=== PATIENT | female | born 1955 | race Caucasian/White ===

== ENCOUNTER 2021-08-15 01:49 | Day surgery (SDC) | payer MEDICARE, SELFPAY ==
[2021-08-08 08:33] VITALS: BMI 32.1
[2021-08-15 09:30] VITALS: BP 160/95; PULSE 77; RESP 18; TEMP 35.9; O2SAT 100
[2021-08-15] MEDS: LACTATED RINGERS 1,000 ML 150 ML IV CONT (09:36)
[2021-08-15 09:40] LABS: Glucose Point of Care 115 mg/dl (65-105)
--- NOTE | 2021-08-15 09:53 | WPDANESEPPF ---
Anes - Initial Pre Proc Eval Procedure: Operation Date: 08/15/21 10:30 Proposed Procedures p Esophagogastroduodenoscopy - Joao Ledezma MD Date/Time: 08/15/21 09:53 Surgeon: Joao Ledezma MD Pre Op Diagnosis: gerd Patient Data Age: 66 Gender: F Height: 1.55 m Weight: 79.8 kg Last Vital Signs Temp 35.9 C L 08/15/21 09:30 Pulse 77 08/15/21 09:30 Resp 18 08/15/21 09:30 BP 160/95 H 08/15/21 09:30 Pulse Ox 100 08/15/21 09:30 Allergies Allergy/AdvReac Type Severity Reaction Status Date / Time No Known Allergies Allergy Mild Verified 08/15/21 09:29 Home Medications Medication Instructions Recorded Confirmed Type abatacept [Orencia ClickJect] 125 mg SUBCUT DAILY 08/08/21 08/15/21 History alendronate 70 mg PO DAILY 08/08/21 08/15/21 History amlodipine-benazepril 5 - 40 cap PO DAILY 08/08/21 08/15/21 History baricitinib [Olumiant] 2 mg PO DAILY 08/08/21 08/15/21 History ergocalciferol (vitamin D2) 1,250 unit PO WEEKLY 08/08/21 08/15/21 History folic acid 1 mg PO DAILY 08/08/21 08/15/21 History glimepiride 2 mg PO DAILY 08/08/21 08/15/21 History metformin 500 mg PO BID 08/08/21 08/15/21 History simvastatin 20 mg PO DAILY 08/08/21 08/15/21 History Laboratory Tests 08/15/21 09:34 POC Capillary Glucose 115 mg/dl H mg/dl (65-105) Patient hx anesthesia problems: none Family hx anesthesia problems: none PMFSH Past Medical History Medical History (Updated 08/15/21 @ 09:55 by Meir Sin MD) Chronic GERD Diabetes HTN (hypertension) Hyperlipidemia Hypothyroidism Obesity Osteoarthritis Rheumatoid arthritis Social History Social History Smoking status: Former smoker Tobacco type: cigarettes Substance use: never Substance use type: does not use Living arrangements: with family Spiritual care concerns: No Anes - Eval Final PreProcedure Day of Procedure 08/15/21 09:53 Patient weight: obese Heart: regular rate and rhythm Lungs: clear to auscultation and normal air movement Airway: Mallampati scale class II Neurological: alert and oriented Last oral intake: >/= 8 hours ASA classification: III Emergent: no Anesthetic plan: proceed Anesthesia type and monitoring: general GIVS Informed Consent: The patient's anesthetic plan and its attendant risks and benefits were discussed with the patient/family/POA. Questions were solicited and answers provided to the satisfaction of the patient/family/POA.
--- NOTE | 2021-08-15 10:11 | PM.HPGS ---
History of Present Illness History of Present Illness Consent: Risks, benefits, and alternatives have been discussed and questions answered. Patient agrees to proceed with procedure. Chief complaint: gerd Narrative: Andria White is a 66 year old female With persistent acid reflux. She has had tenderness in the lower substernal area. Occasionally food will get hung up when swallowing. Most the time her heartburn is controlled with [id number] Nexium. Review of Systems Review of Systems: All systems reviewed & are unremarkable except as noted in HPI and below PMFSH Past Medical History Medical History Chronic GERD Diabetes HTN (hypertension) Hyperlipidemia Hypothyroidism Obesity Osteoarthritis Rheumatoid arthritis Social History Social History Smoking status: Former smoker Tobacco type: cigarettes Substance use: never Substance use type: does not use Living arrangements: with family Spiritual care concerns: No Meds Home Medications and Allergies Home Medications Medication Instructions Recorded Confirmed Type abatacept [Orencia ClickJect] 125 mg SUBCUT DAILY 08/08/21 08/15/21 History alendronate 70 mg PO DAILY 08/08/21 08/15/21 History amlodipine-benazepril 5 - 40 cap PO DAILY 08/08/21 08/15/21 History baricitinib [Olumiant] 2 mg PO DAILY 08/08/21 08/15/21 History ergocalciferol (vitamin D2) 1,250 unit PO WEEKLY 08/08/21 08/15/21 History folic acid 1 mg PO DAILY 08/08/21 08/15/21 History glimepiride 2 mg PO DAILY 08/08/21 08/15/21 History metformin 500 mg PO BID 08/08/21 08/15/21 History simvastatin 20 mg PO DAILY 08/08/21 08/15/21 History Allergies Allergy/AdvReac Type Severity Reaction Status Date / Time No Known Allergies Allergy Mild Verified 08/15/21 09:29 Vital Signs Vital Signs - 24 hr 08/15/21 09:30 Temperature 35.9 C L Pulse Rate 77 Respiratory Rate 18 Blood Pressure 160/95 H Pulse Oximetry 100 Exam Const: General: healthy appearing and comfortable Resp: Auscultation: clear to auscultation bilaterally Cardio: Rate: regular rate Rhythm: regular rhythm GI: GI Palp: Yes Soft to palpation, Yes Tenderness to palpation present (GI) ( xiphoid) and Yes No hepatosplenomegaly present Auscultation: normal bowel sounds Assessment and Plan Assessment and plan (1) Chronic GERD: Code(s): K21.9 - Gastro-esophageal reflux disease without esophagitis Status: Acute Assessment and Plan: EGD with possible biopsy or dilatation or cautery.
[2021-08-15 10:32] VITALS: BP 108/51; PULSE 74; RESP 18; O2SAT 100
[2021-08-15 10:42] VITALS: BP 98/74; PULSE 68; RESP 16; O2SAT 99
[2021-08-15 10:52] VITALS: BP 128/83; PULSE 71; RESP 14; O2SAT 99
== END 2021-08-15 11:06 | disposition home or self-care (01) ==
PROVIDERS: PCP Internal Medicine; Visit Provider Internal Medicine Gastroenterology
PROC: 0DJ08ZZ Inspection of Upper Intestinal Tract, Via Natural or Artificial Opening Endoscopic (ICD-10-PCS; CPT 43235; principal; 2021-08-15 10:30)
DX: K21.9 Gastro-esophageal reflux disease without esophagitis (principal); K44.9 Diaphragmatic hernia without obstruction or gangrene; K31.7 Polyp of stomach and duodenum; I10 Essential (primary) hypertension; E11.9 Type 2 diabetes mellitus without complications; E78.5 Hyperlipidemia, unspecified; E03.9 Hypothyroidism, unspecified; M06.9 Rheumatoid arthritis, unspecified; Z79.84 Long term (current) use of oral hypoglycemic drugs; Z87.891 Personal history of nicotine dependence; E66.9 Obesity, unspecified; Z68.33 Body mass index [BMI] 33.0-33.9, adult
CPT/HCPCS: 43235; 82948; J2704; J7120

== ENCOUNTER 2022-04-05 01:27 | Day surgery (SDC) | payer MEDICARE, SELFPAY ==
[2022-03-19 15:54] VITALS: BMI 31.2
--- NOTE | 2022-04-05 07:07 | WPDGICN ---
Assessment and Plan Assessment and plan (1) Iron deficiency anemia: Code(s): D50.9 - Iron deficiency anemia, unspecified Status: Acute Assessment and Plan: Colonoscopy with possible biopsy or polypectomy or cautery or injection of substances. GI Consult Note Consult date/time: 04/05/22 07:07 HPI: Andria White is a 66 year old female when asked to see because of a recent diagnosis of iron deficiency anemia. She had routine blood work done last month which reveals a hemoglobin of 10.5. Repeat was 11. Her serum iron was low at 29, with only 6% saturation. Likewise ferritin levels were low. She has not had gastroesophageal reflux disease. EGD was done within the past year showing mild reflux changes. She continues to take omeprazole daily. Review of Systems Review of Systems: All systems reviewed & are unremarkable except as noted in HPI and below PMFSH Past Medical History Medical History Chronic GERD Diabetes HTN (hypertension) Hyperlipidemia Hypothyroidism Obesity Osteoarthritis Rheumatoid arthritis Social History Social History Smoking status: Never smoker Tobacco type: cigarettes Alcohol intake: never Substance use: never Substance use type: does not use Living arrangements: with family Spiritual care concerns: No Meds Home Medications and Allergies Home Medications Medication Instructions Recorded Confirmed Type Orencia ClickJect 125 mg SUBCUT WEEKLY 08/08/21 03/19/22 History alendronate 70 mg PO WEEKLY 08/08/21 03/19/22 History amlodipine-benazepril 5 - 40 cap PO DAILY 08/08/21 03/19/22 History ergocalciferol (vitamin D2) 1,250 unit PO WEEKLY 08/08/21 03/19/22 History folic acid 1 mg PO DAILY 08/08/21 03/19/22 History glimepiride 2 mg PO BID 08/08/21 03/19/22 History metformin 500 mg PO BID 08/08/21 03/19/22 History simvastatin 20 mg PO DAILY 08/08/21 03/19/22 History pantoprazole 40 mg PO DAILY 30 Days #30 tablet 08/15/21 03/19/22 Rx ferrous sulfate 325 mg PO BID 03/19/22 03/19/22 History Allergies Allergy/AdvReac Type Severity Reaction Status Date / Time No Known Allergies Allergy Mild Verified 04/05/22 10:08 Exam Const: General: alert Orientation/consciousness: patient oriented x3 Resp: Auscultation: clear to auscultation bilaterally Cardio: Rhythm: regular rhythm GI: GI Palp: Yes Soft to palpation and No Tenderness to palpation present (GI) Neuro: General: patient oriented x3
[2022-04-05 10:08] VITALS: BP 156/86; PULSE 77; RESP 16; TEMP 35.8; O2SAT 99; BMI 29.9
[2022-04-05] MEDS: LACTATED RINGERS 1,000 ML 150 ML IV CONT (10:18)
[2022-04-05 10:19] LABS: Glucose Point of Care 127 mg/dl (65-105)
--- NOTE | 2022-04-05 10:23 | WPDANESEPPF ---
Anes - Initial Pre Proc Eval Procedure: Operation Date: 04/05/22 11:00 Proposed Procedures p Colonoscopy - Joao Ledezma MD Date/Time: 04/05/22 10:23 Surgeon: Joao Ledezma MD Pre Op Diagnosis: NATHAN Patient Data Age: 66 Gender: F Height: 1.55 m Weight: 71.9 kg Last Vital Signs Temp 35.8 C L 04/05/22 10:08 Pulse 77 04/05/22 10:08 Resp 16 04/05/22 10:08 BP 156/86 H 04/05/22 10:08 Pulse Ox 99 04/05/22 10:08 Allergies Allergy/AdvReac Type Severity Reaction Status Date / Time No Known Allergies Allergy Mild Verified 04/05/22 10:08 Home Medications Medication Instructions Recorded Confirmed Type Orencia ClickJect 125 mg SUBCUT WEEKLY 08/08/21 03/19/22 History alendronate 70 mg PO WEEKLY 08/08/21 03/19/22 History amlodipine-benazepril 5 - 40 cap PO DAILY 08/08/21 03/19/22 History ergocalciferol (vitamin D2) 1,250 unit PO WEEKLY 08/08/21 03/19/22 History folic acid 1 mg PO DAILY 08/08/21 03/19/22 History glimepiride 2 mg PO BID 08/08/21 03/19/22 History metformin 500 mg PO BID 08/08/21 03/19/22 History simvastatin 20 mg PO DAILY 08/08/21 03/19/22 History pantoprazole 40 mg PO DAILY 30 Days #30 tablet 08/15/21 03/19/22 Rx ferrous sulfate 325 mg PO BID 03/19/22 03/19/22 History Laboratory Tests 04/05/22 10:12 POC Capillary Glucose 127 mg/dl H mg/dl (65-105) Patient hx anesthesia problems: none Family hx anesthesia problems: none Results Review: All pre-operative results and documents have been reviewed as part of the pre-operative evaluation. [facility] Past Medical History Medical History Chronic GERD Diabetes HTN (hypertension) Hyperlipidemia Hypothyroidism Obesity Osteoarthritis Rheumatoid arthritis Social History Social History Smoking status: Never smoker Tobacco type: cigarettes Alcohol intake: never Substance use: never Substance use type: does not use Living arrangements: with family Spiritual care concerns: No Anes - Eval Final PreProcedure Day of Procedure 04/05/22 10:23 Patient weight: obese Heart: regular rate and rhythm Lungs: clear to auscultation Airway: Mallampati scale class II Neurological: alert and oriented Last oral intake: >/= 8 hours ASA classification: III Emergent: no Anesthetic plan: proceed Anesthesia type and monitoring: general GIVS and standard monitoring Results Review: All pre-operative results and documents have been reviewed as part of the pre-operative evaluation. Informed Consent: The patient's anesthetic plan and its attendant risks and benefits were discussed with the patient/family/POA. Questions were solicited and answers provided to the satisfaction of the patient/family/POA.
[2022-04-05 11:12] VITALS: BP 140/82; PULSE 78; RESP 22; O2SAT 97
[2022-04-05 11:22] VITALS: BP 158/86; PULSE 70; RESP 23; O2SAT 98
== END 2022-04-05 11:38 | disposition home or self-care (01) ==
PROVIDERS: PCP Internal Medicine; Visit Provider Internal Medicine Gastroenterology
PROC: 0DJD8ZZ Inspection of Lower Intestinal Tract, Via Natural or Artificial Opening Endoscopic (ICD-10-PCS; CPT 45378; principal; 2022-04-05 11:00)
DX: Z12.11 Encounter for screening for malignant neoplasm of colon (principal); K64.8 Other hemorrhoids; K57.30 Diverticulosis of large intestine without perforation or abscess without bleeding; D50.9 Iron deficiency anemia, unspecified; E11.9 Type 2 diabetes mellitus without complications; I10 Essential (primary) hypertension; E78.5 Hyperlipidemia, unspecified; E03.9 Hypothyroidism, unspecified; M06.9 Rheumatoid arthritis, unspecified; K21.9 Gastro-esophageal reflux disease without esophagitis; M19.90 Unspecified osteoarthritis, unspecified site; Z79.84 Long term (current) use of oral hypoglycemic drugs; E66.9 Obesity, unspecified; Z68.30 Body mass index [BMI] 30.0-30.9, adult
CPT/HCPCS: G0121; 82948; J2704; J7120

== ENCOUNTER 2022-12-24 18:39 | Emergency (ER) | payer MEDICARE, SELFPAY ==
--- NOTE | ~2022-12-24 | XR_ITS ---
EXAM: XR clavicle LT DATE: 12/24/2022 20:07 HISTORY: clavicle pain WITH A NOTICEABLE KNOT . COMPARISON: None available. FINDINGS: Normal mineralization. An oblique proximal left clavicle fracture is now evident, with mil d inferior displacement of the distal fragment, which was previously obscured by summation artifact. Redemonstration of the possible chip fracture at the superior tip of the distal left clavicle. IMPRESSION: Oblique proximal left clavicle fracture with mild inferior displacement. Redemonstration of the possible chip fracture at the tip of the distal left clavicle. Reviewed, dictated and finalized at location K. EMATICS EDUCATION PROFESSOR IMPRESSION: Oblique proximal left clavicle fracture with mild inferior displace ment. Redemonstration of the possible chip fracture at the tip of the distal le ft clavicle.
--- NOTE | ~2022-12-24 | XR_ITS ---
EXAM: XR shoulder LT min 2V DATE: 12/24/2022 19:12 HISTORY: left shoulder injury . COMPARISON: None available. FINDINGS: Normal mineralization. No fracture or dislocation. No lytic or blastic lesion. Mild AC ingrid nt hypertrophy and glenohumeral degenerative change. Cortical lucency through the superior and distal aspect of the left clavicle which may represent small distal clavicular fracture or artifact from an osteophyte. No erosion or periosteal change. Soft tissues within normal limits. IMPRESSION: Small distal left clavicular fracture versus artifact from an adjacent osteophyte, correl ate with pain or point tenderness over the AC joint. Otherwise no acute osseous finding in the left s houlder Reviewed, dictated and finalized at location K. IX INSPECTOR IMPRESSION: Small distal left clavicular fracture versus artifact from an adjac ent osteophyte, correlate with pain or point tenderness over the AC joint. Othe rwise no acute osseous finding in the left shoulder
[2022-12-24 18:54] VITALS: BP 146/81; PULSE 94; RESP 16; TEMP 36.6; O2SAT 98
--- NOTE | 2022-12-24 19:16 | ED.UPPEXIN ---
HPI - Extremity Injury (Upper) General Chief Complaint: Extremity Injury, Upper Stated Complaint: fall, left shoulder injury Time Seen by Provider: 12/24/22 19:16 Source: patient Mode of arrival: ambulatory Limitations: no limitations History of Present Illness HPI narrative: Patient is a 67-year-old female presenting to the emergency department for evaluation following a fall down 1 step. Patient states that she was going down a flight of steps when she missed stepped on the last step in the staircase causing her to lose her balance and hit her shoulder into the left wall. Patient was able to sit down on the steps. No head trauma. Patient denies any upper or lower back pain. Patient reports pain and swelling over the collarbone area and actually denies any left-sided shoulder pain. Denies any bruising or deformity.. She denies any use of chronic anticoagulation. She denies prodromal symptoms prior to this such as lightheadedness, dizziness, chest pain. Patient is right-hand dominant. She denies any focal weakness or numbness. She denies any pain in the bilateral shoulders, elbow, wrist. Related Data Home Medications Medication Instructions Recorded Confirmed abatacept 125 mg/mL subcutaneous 125 mg subcut WEEKLY 08/08/21 03/19/22 auto-injector (BreconRidgencia ClickJect) alendronate 70 mg tablet 70 mg PO WEEKLY 08/08/21 03/19/22 amlodipine 5 mg-benazepril 40 mg 5 - 40 cap PO DAILY 08/08/21 03/19/22 capsule ergocalciferol (vitamin D2) 1,250 1,250 unit PO WEEKLY 08/08/21 03/19/22 mcg (50,000 unit) capsule folic acid 1 mg tablet 1 mg PO DAILY 08/08/21 03/19/22 glimepiride 2 mg tablet 2 mg PO BID 08/08/21 03/19/22 metformin 500 mg tablet 500 mg PO BID 08/08/21 03/19/22 simvastatin 20 mg tablet 20 mg PO DAILY 08/08/21 03/19/22 ferrous sulfate 325 mg (65 mg 325 mg PO BID 03/19/22 03/19/22 iron) tablet Allergies Allergy/AdvReac Type Severity Reaction Status Date / Time No Known Allergies Allergy Mild Verified 12/24/22 19:31 Review of Systems Review of Systems: CONSTITUTIONAL: Denies fever CARDIOVASCULAR: Denies chest pain RESPIRATORY: Denies cough or dyspnea. GASTROINTESTINAL: Denies abdominal pain SKIN: Denies rash MUSCULOSKELETAL: Denies back pain, denies shoulder, elbow or wrist pain bilaterally. She does report pain overlying the left clavicular area with swelling NEUROLOGIC: Denies headache PMFSH Past Medical History Medical History Chronic GERD Diabetes HTN (hypertension) Hyperlipidemia Hypothyroidism Obesity Osteoarthritis Rheumatoid arthritis Social History Social History Smoking status: Never smoker Tobacco type: cigarettes Alcohol intake: never Substance use: never Substance use type: does not use Living arrangements: with family Spiritual care concerns: No Exam Narrative: GENERAL: Awake, alert, conversant HEAD: Normocephalic, atraumatic. EYES: PERRLA and EOMI. ENT: Nares clear, no rhinorrhea or epistaxis. Mucous membranes moist. NECK: Supple. Patient with tenderness overlying the clavicle. There is ecchymosis and edema at the proximal clavicle. CHEST: No respiratory distress, breathing even and non labored HEART: Regular rate, sinus rhythm ABDOMEN:Non distended, non tender EXTREMITIES: Pt with decreased ROM of the LUE secondary to pain. Intact sensation overlying the deltoid. No squaring off of the shoulder. Full flexion and extension at the left elbow and left wrist without pain or limitation. Intact abduction and adduction of the left shoulder although this does elicit pain. Radial pulse 2+ with intact sensation median, ulnar, radial nerve distribution. Cassandra Architect strength 5/5. SKIN: Warm, dry, no rash. NEURO:No focal deficits. Alert and oriented x3 Course Vital Signs Vital signs: Vital Signs Temperature 36.6 C 12/24/22 18:54 Pulse Rate 94 12/24/22 18:5
[2022-12-24] MEDS: oxyCODONE/ACETAMINOPHEN (*CRX) 5-325 MG TABLET 1 TABLET PO (19:31)
== END 2022-12-24 20:56 | disposition home or self-care (01) ==
LOC: ANHED 20:35
PROVIDERS: Emergency Provider Emergency Medicine; PCP Internal Medicine
DX: S42.012A Anterior displaced fracture of sternal end of left clavicle, initial encounter for closed fracture (principal); E11.9 Type 2 diabetes mellitus without complications; I10 Essential (primary) hypertension; E78.5 Hyperlipidemia, unspecified; E03.9 Hypothyroidism, unspecified; M06.9 Rheumatoid arthritis, unspecified; M19.90 Unspecified osteoarthritis, unspecified site; K21.9 Gastro-esophageal reflux disease without esophagitis; E66.9 Obesity, unspecified; Z68.30 Body mass index [BMI] 30.0-30.9, adult; Z79.84 Long term (current) use of oral hypoglycemic drugs; W10.9XXA Fall (on) (from) unspecified stairs and steps, initial encounter
CPT/HCPCS: 73000; 73030; 99284; A4565; A9270

== ENCOUNTER 2023-01-22 10:16 | Outpatient (CLI) | payer MEDICARE, SELFPAY ==
--- NOTE | ~2023-01-22 | XR_ITS ---
2 views of the left clavicle CLINICAL HISTORY: Fracture follow-up COMPARISON: 12/24/2022 FINDINGS: Proximal left clavicular fracture is poorly delineated, likely nearly completely healed. Cardoso spected small chip fracture of the distal clavicle again noted. [id number] AC joint degenerativ e changes present. Soft tissues are unremarkable. IMPRESSION: Poor visualization of proximal left clavicular fracture, likely nearly completely healed. Stable possible small chip fracture of the distal clavicle. Degenerative changes AC joint, as detailed above. Reviewed, dictated and finalized at location M. TECHNOLOGIST IMPRESSION: Poor visualization of proximal left clavicular fracture, likely nearly complete ly healed. Stable possible small chip fracture of the distal clavicle. Degenerative changes AC joint, as detailed above.
== END 2023-01-22 10:17 | disposition home or self-care (01) ==
PROVIDERS: PCP Internal Medicine; Visit Provider Physician Assistant Surgical
DX: S42.009A Fracture of unspecified part of unspecified clavicle, initial encounter for closed fracture (principal); T14.90XA Injury, unspecified, initial encounter
CPT/HCPCS: 73000

== ENCOUNTER 2023-12-31 08:16 | Outpatient (CLI) | payer MEDICARE, SELFPAY ==
--- NOTE | ~2023-12-31 | CT_ITS ---
CT of the Abdomen: Indication: Periumbilical pain Technique: 2.5 mm axial scans were obtained through the abdomen following intravenous administration of 100 cc of Omnipaque 350. Dose reduction technique was used on this scan by utilizing automated ex posure control and iterative reconstruction technique. The dose-length product (DLP) was 519.38 mGy-c m. Findings: Scans through the lung bases demonstrate small hiatal hernia. There is diffuse fatty infiltration of liver. The spleen, pancreas, gallbladder, adrenals and kidneys are within normal limits. No evidence of aortic aneurysm. No lymphadenopathy. Visualized bowel loops are unremarkable. No ascites. Small fat-containing umbilical hernia present. T here is an additional small fat-containing ventral hernia superior to the umbilicus. Mild compression fracture L1 noted. Impression: Small fat-containing umbilical hernia. Small fat-containing ventral hernia superior to the umbilicus. Small hiatal hernia. Diffuse fatty infiltration of liver. Mild L1 compression deformity. Reviewed, dictated and finalized at location . ESIASTICAL WORKER Impression: Small fat-containing umbilical hernia. Small fat-containing ventral hernia superior to the umbilicus. Small hiatal hernia. Diffuse fatty infiltration of liver. Mild L1 compression deformity.
[2023-12-31 08:37] LABS: Estimated Glomerular Filt Rate > 60
== END 2023-12-31 08:17 | disposition home or self-care (01) ==
LOC: ANHIMG 08:19
PROVIDERS: PCP Internal Medicine; Visit Provider Nurse Practitioner
DX: R19.8 Other specified symptoms and signs involving the digestive system and abdomen (principal); K42.9 Umbilical hernia without obstruction or gangrene; K43.9 Ventral hernia without obstruction or gangrene; K76.0 Fatty (change of) liver, not elsewhere classified; S32.010A Wedge compression fracture of first lumbar vertebra, initial encounter for closed fracture; X58.XXXA Exposure to other specified factors, initial encounter
CPT/HCPCS: 74160; Q9967

== ENCOUNTER 2024-01-21 08:32 | Day surgery (SDC) | payer MEDICARE, SELFPAY ==
[2024-01-09 08:37] VITALS: BMI 34.8
[2024-01-12 11:58] VITALS: BMI 34.5
[2024-01-21 09:47] VITALS: BMI 34.6
[2024-01-21 09:51] VITALS: BP 165/94; PULSE 88; RESP 16; TEMP 36.7; O2SAT 99
--- NOTE | 2024-01-21 09:52 | WPDHPUPDATE1 ---
History and Physical Update Update Date/Time: 01/21/24 09:52 History and Physical has been reviewed, including an updated exam of the patient. There are NO changes in the patient's condition. Risks, benefits, and alternatives have been discussed and questions answered. Patient agrees to proceed with procedure.
--- NOTE | 2024-01-21 10:03 | WPDANESEPPF ---
Anes - Initial Pre Proc Eval Procedure: Operation Date: 01/21/24 11:00 Proposed Procedures p Esophagogastroduodenoscopy - Dylan Kerr MD Date/Time: 01/21/24 10:03 Surgeon: Dylan Kerr MD Pre Op Diagnosis: GERD w/o esophagitis, diaphragmatic hernia w/o Patient Data Age: 68 Gender: F Height: 1.55 m Weight: 83.2 kg Last Vital Signs Temp 36.7 C 01/21/24 09:51 Pulse 88 01/21/24 09:51 Resp 16 01/21/24 09:51 BP 165/94 H 01/21/24 09:51 Pulse Ox 99 01/21/24 09:51 O2 Del Method Room Air 01/21/24 09:51 Allergies Allergy/AdvReac Type Severity Reaction Status Date / Time No Known Allergies Allergy Mild Verified 01/21/24 09:41 Home Medications Medication Instructions Recorded Confirmed Type alendronate 70 mg tablet 70 mg PO WEEKLY 08/08/21 01/21/24 History amlodipine 5 mg-benazepril 40 mg 5 - 40 cap PO DAILY 08/08/21 01/21/24 History capsule ergocalciferol (vitamin D2) 1,250 1,250 unit PO WEEKLY 08/08/21 01/21/24 History mcg (50,000 unit) capsule glimepiride 2 mg tablet 2 mg PO BID 08/08/21 01/21/24 History metformin 500 mg tablet 500 mg PO BID 08/08/21 01/21/24 History ferrous sulfate 325 mg (65 mg 325 mg PO BID 03/19/22 01/21/24 History iron) tablet pantoprazole 40 mg tablet,delayed See Rx Instructions .Route 12/23/23 01/21/24 Rx release .COMPLEX #90 tabs upadacitinib 30 mg tablet,extended 15 mg PO DAILY 12/23/23 01/21/24 History release 24 hr (Rinvoq) Patient hx anesthesia problems: none Family hx anesthesia problems: none Results Review: All pre-operative results and documents have been reviewed as part of the pre-operative evaluation. [facility] Past Medical History Medical History Abnormal abdominal exam Chronic GERD Colon cancer screening Diabetes Fatty liver Hiatal hernia History of fracture of clavicle (~12/24/22) Left HTN (hypertension) Hyperlipidemia Hyperplastic polyp of stomach Hypothyroidism Nonerosive esophageal reflux disease Obesity Osteoarthritis Periumbilical pain Rheumatoid arthritis Surgical History Surgical History H/O: hysterectomy History of hip replacement left hip 08/2024 History of left knee replacement Family History Family History Mother Diabetes mellitus Cerebrovascular accident Daughter Brain cancer Grandparent Breast cancer Social History Social History Smoking status: Never smoker Alcohol intake: never Substance use: never Substance use type: does not use Lack of Transportation: No Lack of Food: Never True Current Housing: I Have Housing Concerned About Future Housing: No Difficulty Paying Gas/Electric Bills: No Difficulty Paying for Meds: No Currently Unemployed: No Education: High School Diploma/GED Difficulty w/ Childcare or Family Care: No Living arrangements: with family Occupation/Education: retired Spiritual care concerns: No Anes - Eval Final PreProcedure Day of Procedure 01/21/24 10:03 Patient weight: obese Heart: regular rate and rhythm Lungs: clear to auscultation Airway: Mallampati scale class II Neurological: alert and oriented Last oral intake: >/= 8 hours ASA classification: III Emergent: no Anesthetic plan: proceed Anesthesia type and monitoring: general GIVS and standard monitoring Results Review: All pre-operative results and documents have been reviewed as part of the pre-operative evaluation. Informed Consent: The patient's anesthetic plan and its attendant risks and benefits were discussed with the patient/family/POA. Questions were solicited and answers provided to the satisfaction of the patient/family/POA.
[2024-01-21] MEDS: LACTATED RINGERS 1,000 ML 150 ML IV CONT (10:06)
[2024-01-21 10:09] LABS: Glucose Point of Care 99 mg/dl (65-105)
[2024-01-21 10:53] VITALS: BP 152/83; PULSE 83; RESP 16; O2SAT 99
--- NOTE | 2024-01-21 10:55 | WPDANESPN ---
Anes - Prog Note Post-Op Date/Time: 01/21/24 10:55 Cardiovascular status: normal Respiratory status: normal Airway patency: baseline Mental status: baseline Post-Op hydration status: normal Vital Signs: Last Vital Signs Temp 36.7 C 01/21/24 09:51 Pulse 88 01/21/24 09:51 Resp 16 01/21/24 09:51 BP 165/94 H 01/21/24 09:51 Pulse Ox 99 01/21/24 09:51 O2 Del Method Room Air 01/21/24 09:51 Pain Score (VAS): 0 I/O: Intake & Output 01/20/24 01/21/24 01/21/24 23:59 07:59 15:59 Intake Total 300 Balance 300 01/21/24 10:02 POC Capillary Glucose 99 Patient Feedback: Patient satisfied with anesthetic care.
[2024-01-21 11:03] VITALS: BP 164/80; PULSE 84; RESP 18; O2SAT 100
[2024-01-21 11:14] VITALS: BP 161/82; PULSE 80; RESP 20; O2SAT 100
== END 2024-01-21 11:22 | disposition home or self-care (01) ==
PROVIDERS: PCP Internal Medicine; Visit Provider Internal Medicine Gastroenterology
PROC: 0DJ08ZZ Inspection of Upper Intestinal Tract, Via Natural or Artificial Opening Endoscopic (ICD-10-PCS; CPT 43235; principal; 2024-01-21 11:00)
DX: K21.9 Gastro-esophageal reflux disease without esophagitis (principal); K44.9 Diaphragmatic hernia without obstruction or gangrene
CPT/HCPCS: 43239

== ENCOUNTER 2024-03-30 11:34 | Outpatient (CLI) | payer MEDICARE, SELFPAY ==
--- NOTE | ~2024-03-30 | NM_ITS ---
EXAMINATION: NM hepatobiliary w pharm DATE: 03/30/2024 13:59 INDICATION: Epigastric pain COMPARISON: None. TECHNIQUE: 5.0 mCi Tc-99m mebrofenin (Choletec) was administered intravenously. Scintigraphic images of the abdomen were obtained for one hour. 1.54 mcg sincalide (Kinevac) was administered by slow int ravenous infusion, and imaging was continued for 30 minutes. Gallbladder ejection fraction was calcul ated by the technologist. FINDINGS: There is normal clearance of radiotracer from the blood pool. There is homogeneous tracer uptake by t he liver. Activity progresses to the gallbladder and bowel. The gallbladder ejection fraction (GBEF) is 68% (normal 10-90%, but most patient with gallbladder dysfunction have GBEF < 35% which does over lap with the normal range). IMPRESSION: 1. Normal hepatobiliary scan Reviewed, dictated and finalized at location A.
== END 2024-03-30 11:35 | disposition home or self-care (01) ==
PROVIDERS: PCP Internal Medicine; Visit Provider Surgery
DX: R10.13 Epigastric pain (principal)
CPT/HCPCS: 78227; A9537; J2805

== ENCOUNTER 2024-04-08 08:54 | Outpatient (CLI) | payer MEDICARE, SELFPAY ==
--- NOTE | ~2024-04-08 | US_ITS ---
Limited Abdominal Sonogram: Real-time sonographic imaging of the right upper quadrant was performed. Clinical History: Epigastric pain Findings: The liver appears echogenic, with no evidence of mass lesion or bile duct dilatation. Main portal vein demonstrates normal direction of flow. The gallbladder is well distended, and appears no rmal with no evidence of gallstone or wall thickening. The common bile duct measures 3 mm. The visua lized pancreas, aorta, and IVC are unremarkable. Impression: Diffuse fatty infiltration of liver. Reviewed, dictated and finalized at location M. Impression: Diffuse fatty infiltration of liver.
== END 2024-04-08 08:55 | disposition home or self-care (01) ==
LOC: ANHIMG 08:56
PROVIDERS: PCP Internal Medicine; Visit Provider Surgery
DX: K76.0 Fatty (change of) liver, not elsewhere classified (principal)
CPT/HCPCS: 76705

== ENCOUNTER 2024-04-21 08:05 | Outpatient (CLI) | payer MEDICARE, SELFPAY ==
--- NOTE | ~2024-04-21 | XR_ITS ---
EXAMINATION: XR UGI w esoph water soluble DATE: 04/21/2024 09:00 INDICATION: Gastroesophageal reflux disease without esophagitis. TECHNIQUE: The patient drank water-soluble contrast. Fluoroscopy of the esophagus, stomach, and proxi mal small bowel was performed. Fluoroscopy exposure time was 0.5 minutes. The total number of images was 265. Total dose-area product was 2.6 Gy-cm^2. COMPARISON: CT abdomen 12/31/2023 FINDINGS: There is no mass or stricture of the esophagus. There is decreased primary and secondary es ophageal peristalsis. No abnormal tertiary waves. There is a moderate-sized sliding hiatal hernia. Th e stomach and proximal small bowel show normal folding patterns. IMPRESSION: 1. Moderate esophageal dysmotility. 2. Moderate-sized sliding hiatal hernia. Reviewed, dictated and finalized at location A.
== END 2024-04-21 08:06 | disposition home or self-care (01) ==
PROVIDERS: PCP Internal Medicine; Visit Provider Surgery
DX: K22.4 Dyskinesia of esophagus (principal); K44.9 Diaphragmatic hernia without obstruction or gangrene; K21.9 Gastro-esophageal reflux disease without esophagitis
CPT/HCPCS: 74240

== ENCOUNTER 2024-06-07 10:17 | Outpatient (CLI) | payer MEDICARE, SELFPAY ==
--- NOTE | ~2024-06-07 | XR_ITS ---
XR chest 2V Ordering provider: Kevin Rojas MD History: 68 years Female with . K21.9 - PRE OP FOR HIATAL HERNIA. HX GERD . Comparison: None. FINDINGS: MEDIASTINUM: The cardiac silhouette is not enlarged. LUNGS: No infiltrates, effusions or pneumothorax. OTHER: No free air under the diaphragm. Degenerative changes of the spine. IMPRESSION: No acute cardiopulmonary pathology. Reviewed, dictated and finalized at location A.
--- NOTE | 2024-06-07 10:30 | ECG_ITS ---
Test Date: 2024-06-07 10:46:20 Measurements Intervals [place] Rate: 94 P: 33 WI: 158 QRS: -26 QRSD: 97 T: 78 QT: 346 QTc: 433 Interpretive Statements SINUS RHYTHM VOLTAGE CRITERIA FOR LVH POOR R WAVE PROGRESSION CONSIDER INFERIOR INFARCT, AGE INDETERMINATE NONSPECIFIC T-WAVE ABNORMALITY- HIGH LATERAL LEADS BASELINE ARTIFACT- I, II, III, AVR, AVL, AVF ABNORMAL ECG No previous ECG available for comparison Electronically Signed On 06-07-2024 10:50:41 CDT by Troy Wise D.O.
[2024-06-07 11:10] LABS: Anion Gap 13 mmol/L (4-12); Blood Urea Nitrogen 11 mg/dL (7-17); Calcium 9.4 mg/dL (8.4-10.2); Carbon Dioxide 23 mmol/L (22-30); Chloride 95 mmol/L (98-107); Estimated Glomerular Filt Rate > 60; Glucose 412 mg/dL (65-110); Potassium 4.5 mmol/L (3.4-5.0); Sodium 131 mmol/L (137-145)
[2024-06-07 11:12] LABS: Basophils Percent Auto 0.2 % (0.2-1.2); Eosinophils Percent Auto 0.2 % (0-4.4); Hematocrit 38.7 % (37.0-47.0); Hemoglobin 11.6 g/dL (12.0-15.0); Immature Granulocyte Absolute 0.03 K/mm3 (0.00-0.031); Immature Granulocyte Percent A 0.7 % (0-0.5); Lymphocytes Absolute Auto 0.88 K/mm3 (0.9-3.2); Lymphocytes Percent Auto 21.2 % (18.3-44.2); Mean Corpuscular Hemoglobin 23.2 pg (26-34); Mean Corpuscular Volume 77.6 fl (80-100); Mean Platelet Volume 10.3 fl (7.4-10.4); Monocytes Absolute Auto 0.1 K/mm3 (0.1-0.6); Monocytes Percent Auto 3.1 % (2.6-8.5); Neutrophils Absolute Auto 3.1 K/mm3 (1.3-6.7); Neutrophils Percent Auto 74.6 % (45.5-73.1); Platelet Count Result 182 k/mm3 (150-375); Red Blood Count 4.99 M/mm3 (4.2-5.4); Red Cell Distribution Width 15.2 % (11.5-14.5); White Blood Count 4.2 K/mm3 (4.5-10.0)
== END 2024-06-07 10:18 | disposition home or self-care (01) ==
LOC: ANHSURGERY 10:20
PROVIDERS: PCP Internal Medicine; Visit Provider Surgery
DX: Z01.818 Encounter for other preprocedural examination (principal); K44.9 Diaphragmatic hernia without obstruction or gangrene; K21.9 Gastro-esophageal reflux disease without esophagitis; R94.31 Abnormal electrocardiogram [ECG] [EKG]
CPT/HCPCS: 36415; 71046; 80048; 85025; 86850; 86900; 86901; 93005

== ENCOUNTER 2024-07-20 07:48 | Outpatient (CLI) | payer MEDICARE, SELFPAY ==
[2024-07-20 08:12] LABS: Basophils Percent Auto 0.6 % (0.2-1.2); Eosinophils Absolute Auto 0.1 K/mm3 (0-0.3); Eosinophils Percent Auto 0.8 % (0-4.4); Hematocrit 41.2 % (37.0-47.0); Hemoglobin 12.1 g/dL (12.0-15.0); Immature Granulocyte Absolute 0.03 K/mm3 (0.00-0.031); Immature Granulocyte Percent A 0.5 % (0-0.5); Lymphocytes Percent Auto 42.1 % (18.3-44.2); Mean Corpuscular HGB Conc 29.4 g/dl (32-36); Mean Corpuscular Hemoglobin 22.4 pg (26-34); Mean Corpuscular Volume 76.4 fl (80-100); Mean Platelet Volume 9.2 fl (7.4-10.4); Monocytes Absolute Auto 0.5 K/mm3 (0.1-0.6); Monocytes Percent Auto 7.1 % (2.6-8.5); Neutrophils Absolute Auto 3.3 K/mm3 (1.3-6.7); Neutrophils Percent Auto 48.9 % (45.5-73.1); Platelet Count Result 186 k/mm3 (150-375); Red Blood Count 5.39 M/mm3 (4.2-5.4); Red Cell Distribution Width 16.2 % (11.5-14.5); White Blood Count 6.7 K/mm3 (4.5-10.0)
[2024-07-20 08:30] LABS: Anion Gap 9 mmol/L (4-12); Blood Urea Nitrogen 11 mg/dL (7-17); Calcium 9.8 mg/dL (8.4-10.2); Carbon Dioxide 29 mmol/L (22-30); Chloride 99 mmol/L (98-107); Estimated Glomerular Filt Rate > 60; Glucose 103 mg/dL (65-110); Potassium 4.3 mmol/L (3.4-5.0); Sodium 137 mmol/L (137-145)
[2024-07-20 08:41] LABS: Hypochromasia 1+; Platelet Estimate Adequate (Adequate); Schistocytes None Seen
== END 2024-07-20 07:49 | disposition home or self-care (01) ==
PROVIDERS: PCP Internal Medicine; Visit Provider Surgery
DX: Z01.818 Encounter for other preprocedural examination (principal); K21.9 Gastro-esophageal reflux disease without esophagitis; K44.9 Diaphragmatic hernia without obstruction or gangrene
CPT/HCPCS: 36415; 80048; 85025; 86850; 86900; 86901

== ENCOUNTER 2024-07-27 07:12 | Outpatient (CLI) | payer MEDICARE, SELFPAY ==
--- NOTE | ~2024-07-27 | NM_ITS ---
EXAMINATION: NM jon stress w perfusion DATE: 07/27/2024 12:13 CDT INDICATION: Abnormal EKG. TECHNIQUE: Rest images were obtained following intravenous administration of 10.9 mCi Tc99m tetrofosm in (Myoview). The patient was infused intravenously with Lexiscan (regadenoson). Then, 34 mCi Tc99m t etrofosmin (Myoview) was administered intravenously, and stress images were obtained. Data was recons tructed into short axis and horizontal and vertical long axis SPECT images. Gated SPECT images were a lso obtained. COMPARISON: None. FINDINGS: There is no definite reversible or fixed perfusion abnormality to suggest ischemia or infar ction. There is no segmental wall motion abnormality. Left ventricular ejection fraction measures 8 9%. IMPRESSION: 1. No definite ischemia or infarct. 2. Normal left ventricular ejection fraction measuring 89%. Reviewed, dictated and finalized at location B.
--- NOTE | 2024-07-27 07:45 | EST_ITS ---
Patient Info Name: Andria White Age: 68 years : 1955 Gender: Female Ht: 61 in Wt: 170 lbs BSA: 1.85 m2 HR: 78 bpm BP: 176 / 97 mmHg Heart Rhythm: Sinus Rhythm Exam Date: 07/27/2024 8:13 AM Exam Location: Echo Lab Patient Status: Outpatient Admit Date: 07/27/2024 Staff Ordering Physician: Kevin Rojas MD Attending Provider: Kevin Rojas MD Exercise Technologist: Nora Reza CT Exercise Physician: Troy Wise DO Exam Type: CA stress jon w NM Study Info Indications Z01.810 - Encounter for preprocedural cardiovascular examination R94.31 - Abnormal electrocardiogram ECG EKG A regadenoson stress test was performed. Summary 1. 1. Negative lexiscan stress test for ischemic ST changes by ECG criteria. 2. 2. Stable hemodynamics throughout the test. 3. 3. Nuclear scan to follow and will be reported separately. Please correlate with it. 4. 4. Patient informed of the above results. Protocol: Lexiscan Stress ECG Details Stage: REST Duration (min): 1 min : 53 sec HR (bpm): 77 SBP (mmHg): 176 DBP (mmHg): 97 Stage: REST Duration (min): 7 min : 41 sec HR (bpm): 78 SBP (mmHg): 176 DBP (mmHg): 97 Stage: STAGE 1 Duration (min): 0 min : 59 sec HR (bpm): 93 SBP (mmHg): 192 DBP (mmHg): 84 Stage: RECOVERY Duration (min): 1 min : 0 sec HR (bpm): 97 SBP (mmHg): 192 DBP (mmHg): 84 Stage: RECOVERY Duration (min): 2 min : 0 sec HR (bpm): 92 SBP (mmHg): 192 DBP (mmHg): 84 Stage: RECOVERY Duration (min): 3 min : 0 sec HR (bpm): 91 SBP (mmHg): 185 DBP (mmHg): 87 Stage: RECOVERY Duration (min): 3 min : 23 sec HR (bpm): 89 SBP (mmHg): 185 DBP (mmHg): 87 Rest HR: 78 bpm Peak HR: 98 bpm Rest Sys BP: 176 mmHg Peak Sys BP: 192 mmHg Max Pred HR: 151 bpm % Max Pred HR: 65 % Target HR: 128 bpm Max RPP: 18,816 bpm*mmHg Termination Reason: Completed protocol Cardiac Symptoms: Shortness of breath Total Time: 1 min : 0 sec Rest Lopez BP: 97 mmHg Peak Lopez BP: 84 mmHg Total Dose: 0.4 mg Resting ECG Sinus rhythm. Stress ECG No ST changes. Arrhythmias None. Report Signatures
== END 2024-07-27 07:13 | disposition home or self-care (01) ==
PROVIDERS: PCP Internal Medicine; Visit Provider Surgery
DX: Z01.810 Encounter for preprocedural cardiovascular examination (principal); R94.31 Abnormal electrocardiogram [ECG] [EKG]
CPT/HCPCS: 78452; 93017; A9502; J2785

== ENCOUNTER 2024-08-20 08:12 | Outpatient (CLI) | payer MEDICARE, SELFPAY ==
[2024-08-20 08:45] LABS: Basophils Percent Auto 0.4 % (0.2-1.2); Eosinophils Percent Auto 0.1 % (0-4.4); Hematocrit 40.8 % (37.0-47.0); Hemoglobin 12.3 g/dL (12.0-15.0); Immature Granulocyte Absolute 0.06 K/mm3 (0.00-0.031); Immature Granulocyte Percent A 0.8 % (0-0.5); Lymphocytes Absolute Auto 1.43 K/mm3 (0.9-3.2); Lymphocytes Percent Auto 19.9 % (18.3-44.2); Mean Corpuscular HGB Conc 30.1 g/dl (32-36); Mean Corpuscular Hemoglobin 23.5 pg (26-34); Mean Platelet Volume 9.9 fl (7.4-10.4); Monocytes Absolute Auto 0.3 K/mm3 (0.1-0.6); Monocytes Percent Auto 4.7 % (2.6-8.5); Neutrophils Absolute Auto 5.3 K/mm3 (1.3-6.7); Neutrophils Percent Auto 74.1 % (45.5-73.1); Platelet Count Result 180 k/mm3 (150-375); Red Blood Count 5.23 M/mm3 (4.2-5.4); Red Cell Distribution Width 16.9 % (11.5-14.5); White Blood Count 7.2 K/mm3 (4.5-10.0)
[2024-08-20 08:59] LABS: Anion Gap 11 mmol/L (4-12); Blood Urea Nitrogen 12 mg/dL (7-17); Calcium 9.6 mg/dL (8.4-10.2); Carbon Dioxide 25 mmol/L (22-30); Chloride 99 mmol/L (98-107); Estimated Glomerular Filt Rate > 60; Glucose 155 mg/dL (65-110); Potassium 4.2 mmol/L (3.4-5.0); Sodium 135 mmol/L (137-145)
== END 2024-08-20 08:13 | disposition home or self-care (01) ==
LOC: ANHSURGERY 08:18
PROVIDERS: PCP Internal Medicine; Visit Provider Surgery
DX: K21.9 Gastro-esophageal reflux disease without esophagitis (principal); K44.9 Diaphragmatic hernia without obstruction or gangrene
CPT/HCPCS: 36415; 80048; 85025; 86850; 86900; 86901

== ENCOUNTER 2024-08-26 13:01 | Inpatient (IN) | payer MEDICARE, SELFPAY ==
[2024-06-04 15:41] VITALS: BMI 32.1
--- NOTE | 2024-06-04 15:43 | PC.NURSE ---
Report to the Outpatient Waiting Room, entrance under the green pavilion located off [facility], at time _1000_ on date _05-17-1804_. Planned Procedure Time: _1200_. Time changes happen often and if your time is changed the preop area will call you the afternoon before. - You and your visitor will be asked to self-screen and do not enter if you have any COVID symptoms. - A mask is optional within the hospital at this time. Patients may have clear liquids (water, carbonated beverages, clear teas, apple juice) until 3 hours prior to surgery with a maximum of 20 ounces. - No food from midnight until time of surgery Take the following medications with a SIP of water the morning of surgery: ____Levothyroxine and prednisone DO NOT STOP ANY OF YOUR OTHER PRESCRIPTION MEDICATIONS PRIOR TO SURGERY ?EXCEPT THE FOLLOWING Medications to discontinue per physician None Date to take last dose Please no make-up, nail thai, hairspray, perfume, deodorant, or body powder the day of surgery. No jewelry (including any body piercings) or valuables the day of surgery, leave them at home. Please take a shower or bath the night before, or the morning of, surgery with an antibacterial soap. Wear comfortable, loose fitting clothing. - Jewelry must be removed prior to entering the operating room. Rings and piercings that are not removed may be cut off. - The hospital will not accept responsibility for valuables. - Please leave all valuables, including medications, at home the day of surgery. If you are going home after surgery, a licensed trencher driver must drive you home. - NO public transportation without another adult if you receive anesthesia. - We recommend that an adult stay with you for 24 hours following discharge. - We also recommend that you do not drive, make important decision, drink alcoholic beverages, or take any drugs that were not prescribed by your health care provider for at least 24 hours after your discharge time. Follow any additional instructions given to you from your surgeon. If you or anyone in your household have experienced Covid symptoms in the past week, please notify your surgeon or the nurse liaison at the phone number below for possible testing. Telephone instructions given to __Debbie__and asked if any additional questions and then verbalized understanding. Patient advised to call surgeon office or pre surgery nurse liaison [phone] if any additional questions.
--- NOTE | 2024-07-16 14:30 | PC.NURSE ---
Report to the Outpatient Waiting Room, entrance under the green pavilion located off [facility], at time __10AM on date _07/22/24 . Planned Procedure Time: _12PM .? Time changes happen often and if your time is changed the preop area will call you the afternoon before. - You and your visitor will be asked to self-screen and do not enter if you have any COVID symptoms. Please call surgeon if you need to reschedule. - A mask is optional within the hospital at this time. Patients may have clear liquids (water, carbonated beverages, clear teas, apple juice) until 3 hours prior to surgery( 9 AM) with a maximum of 20 ounces. - No food from midnight until time of surgery and no smoking - Infants may have breast milk until 4 hours before surgery, infant formula 6 hours prior to surgery. - Children will be allowed to drink immediately following surgery.? If applicable, please bring a bottle or sippy cup to assist with drinking. Juice, water, soda, and popsicles are readily available.? For infants on formula, please bring formula the day of surgery.? Pacifiers are allowed. Take only the following medications with a SIP of water on the morning of surgery: __LEVOTHYROXINE,PREDNISONE DO NOT STOP ANY OF YOUR OTHER PRESCRIPTION MEDICATIONS PRIOR TO SURGERY EXCEPT THE FOLLOWING Medications to discontinue per physician HOLD ALL VITAMINS AND SUPPLEMENTS 3 DAYS PRE OP.LAST DOSE 07/18/24 Please no make-up, nail khmer, hairspray, perfume, deodorant, or body powder the day of surgery.? No jewelry (including any body piercings) or valuables the day of surgery, leave them at home.? Please take a shower or bath the night before, or the morning of, surgery with an antibacterial soap.? Wear comfortable, loose fitting clothing.? Children are encouraged to wear pajamas. - Jewelry must be removed prior to entering the operating room.? Rings and piercings that are not removed may be cut off. - The hospital will not accept responsibility for valuables.? - Please leave all valuables, including medications, at home the day of surgery. If you are going home after surgery, a licensed chassis driver must drive you home.? - NO public transportation without another adult if you receive anesthesia. - We recommend that an adult stay with you for 24 hours following discharge. - We also recommend that you do not drive, make important decision, drink alcoholic beverages, or take any drugs that were not prescribed by your health care provider for at least 24 hours after your discharge time. For Pediatric surgeries, we recommend two adults accompany the child home. Follow any additional instructions given to you from your surgeon. Telephone instructions given to __PATIENT and asked if any additional questions and then verbalized understanding. Patient advised to call surgeon office or pre surgery nurse liaison [phone] if any additional questions.
--- NOTE | 2024-08-19 09:23 | PC.NURSE ---
Report to the Outpatient Waiting Room, entrance under the green pavilion located off [facility], at time __6AM on date _08/25/24 . Planned Procedure Time: _7:30 AM .? Time changes happen often and if your time is changed the preop area will call you the afternoon before. - You and your visitor will be asked to self-screen and do not enter if you have any COVID symptoms. Please call surgeon if you need to reschedule. - A mask is optional within the hospital at this time. Patients may have clear liquids (water, carbonated beverages, clear teas, apple juice) until 3 hours prior to surgery( 4:30 AM) with a maximum of 20 ounces. - No food from midnight until time of surgery and no smoking - Infants may have breast milk until 4 hours before surgery, formula 6 hours prior to surgery. - Children will be allowed to drink immediately following surgery.? If applicable, please bring a bottle or sippy cup to assist with drinking. Juice, water, soda, and popsicles are readily available.? For infants on formula, please bring formula the day of surgery.? Pacifiers are allowed. Take only the following medications with a SIP of water on the morning of surgery: _LEVOTHYROXINE,PREDNISONE DO NOT STOP ANY OF YOUR OTHER PRESCRIPTION MEDICATIONS PRIOR TO SURGERY EXCEPT THE FOLLOWING Medications to discontinue per physician ___HOLD ALL VITAMINS AND SUPPLEMENTS 3 DAYS PRE OP .LAST DOSE 08/21/24 Please no make-up, nail sinhala, hairspray, perfume, deodorant, or body powder the day of surgery.? No jewelry (including any body piercings) or valuables the day of surgery, leave them at home.? Please take a shower or bath the night before, or the morning of, surgery with an antibacterial soap.? Wear comfortable, loose fitting clothing.? Children are encouraged to wear pajamas. - Jewelry must be removed prior to entering the operating room.? Rings and piercings that are not removed may be cut off. - The hospital will not accept responsibility for valuables.? - Please leave all valuables, including medications, at home the day of surgery. If you are going home after surgery, a licensed fork truck driver must drive you home.? - NO public transportation without another adult if you receive anesthesia. - We recommend that an adult stay with you for 24 hours following discharge. - We also recommend that you do not drive, make important decision, drink alcoholic beverages, or take any drugs that were not prescribed by your health care provider for at least 24 hours after your discharge time. For Pediatric surgeries, we recommend two adults accompany the child home. Follow any additional instructions given to you from your surgeon. Telephone instructions given to __PATIENT and asked if any additional questions and then verbalized understanding. Patient advised to call surgeon office or pre surgery nurse liaison [phone] if any additional questions.
--- NOTE | 2024-08-19 09:26 | PC.NURSE ---
PT STATES NO CHANGE IN HEALTH HX SINCE LAST INTERVIEW ON 07/16/24 STRESS TEST DONE 07/27/24 IN EMR
[2024-08-25] VITALS (15 sets, daily range): BP systolic 101–169; BP diastolic 58–79; PULSE 68–103; RESP 16–20; TEMP 36.2–37; O2SAT 91–100
[2024-08-25] MEDS: LACTATED RINGERS 1,000 ML 30 ML IV CONT ×3 (06:30→11:02)
[2024-08-25 06:59] LABS: Glucose Point of Care 130 mg/dl (65-105)
[2024-08-25] MEDS: KETOROLAC 15 MG/ML VIAL (*BKC) IV PUSH (07:06)
[2024-08-25] MEDS: ACETAMINOPHEN 500 MG TABLET 1000 MG PO (07:06)
--- NOTE | 2024-08-25 07:12 | WPDHPUPDATE1 ---
History and Physical Update Update Date/Time: 08/25/24 07:12 History and Physical has been reviewed, including an updated exam of the patient. There are NO changes in the patient's condition. Risks, benefits, and alternatives have been discussed and questions answered. Patient agrees to proceed with procedure.
--- NOTE | 2024-08-25 07:13 | PM.IMHP ---
H&P: HPI History of Present Illness Date/Time: 08/25/24 07:13 Chief Complaint: Heartburn Narrative: Patient is a 69-year-old woman who has a long history of gastroesophageal reflux disease and a medium hiatal hernia by imaging. She takes Protonix with fair relief but often has breakthrough heartburn and she requires Nexium. She has had extensive testing. Esophageal manometry showed adequate esophageal body motility to allow for Alin fundoplication. Gallbladder testing was negative. She is taken to surgery now for laparoscopic Alin fundoplication. Review of Systems Review of Systems: All systems reviewed & are unremarkable except as noted in HPI and below (HPI) [facility] Past Medical History Medical History Abnormal abdominal exam Chronic GERD Colon cancer screening Diabetes Fatty liver Hiatal hernia History of fracture of clavicle (~12/24/22) Left HTN (hypertension) Hyperlipidemia Hyperplastic polyp of stomach Hypothyroidism Nonerosive esophageal reflux disease Obesity Osteoarthritis Periumbilical pain Rheumatoid arthritis Surgical History Surgical History H/O: hysterectomy History of hip replacement left hip 08/2024 History of left knee replacement Family History Family History Mother Diabetes mellitus Cerebrovascular accident Daughter Brain cancer Grandparent Breast cancer Social History Social History Smoking status: Never smoker Alcohol intake: never Substance use: never Substance use type: does not use Lack of Transportation: No Lack of Food: Never True Current Housing: I Have Housing Concerned About Future Housing: No Difficulty Paying Gas/Electric Bills: No Difficulty Paying for Meds: No Currently Unemployed: No Education: High School Diploma/GED Difficulty w/ Childcare or Family Care: No Living arrangements: with family Occupation/Education: retired Spiritual care concerns: No Meds Home Medications and Allergies Home Medications Medication Instructions Recorded Confirmed Type alendronate 70 mg tablet 70 mg PO WEEKLY 08/08/21 08/25/24 History amlodipine 5 mg-benazepril 40 mg 5 - 40 cap PO DAILY 08/08/21 08/25/24 History capsule ergocalciferol (vitamin D2) 1,250 1,250 unit PO WEEKLY 08/08/21 08/25/24 History mcg (50,000 unit) capsule glimepiride 2 mg tablet 2 mg PO BID 08/08/21 08/25/24 History metformin 500 mg tablet 1,000 mg PO BID 08/08/21 08/25/24 History pantoprazole 40 mg tablet,delayed See Rx Instructions .Route 12/23/23 08/25/24 Rx release .COMPLEX #90 tabs levothyroxine 25 mcg capsule 25 mcg PO DAILY 03/18/24 08/25/24 History prednisone 10 mg tablet 10 mg PO DAILY 06/04/24 08/25/24 History simvastatin 40 mg tablet 40 mg PO DAILY 07/16/24 08/25/24 History Allergies Allergy/AdvReac Type Severity Reaction Status Date / Time No Known Allergies Allergy Mild Verified 08/25/24 07:04 Exam Const: General: comfortable, no acute distress, alert and awake Nutritional Appearance: overweight HENMT: Head: normocephalic and atraumatic Mouth: Yes Normal oral and palatal mucosa present Eyes: Conjunctivae: conjunctivae normal Pupils: Equal, round and reactive pupils present EOM: EOMs intact bilaterally Neck: Neck: normal visual inspection, no lymphadenopathy and nontender Resp: Effort & Inspection: normal respiratory effort Auscultation: clear to auscultation bilaterally Cardio: Rate: regular rate Rhythm: regular rhythm Heart sounds: no gallops, no murmurs and no rubs GI: Inspection: non-distended, obesity and visible herniation (Umbilical) GI Palp: Yes Soft to palpation, No Tenderness to palpation present (GI), No Hepatomegaly present, No Splenomegaly present and Yes Hernia present umbilical Auscultation: nor
--- NOTE | 2024-08-25 07:18 | WPDANESEPPF ---
Anes - Initial Pre Proc Eval Procedure: Operation Date: 08/25/24 07:30 Proposed Procedures p Laparoscopic Alin Fundoplication with Hiatal Hernia Repair - Kevin Rojas MD Date/Time: 08/25/24 07:18 Surgeon: Kevin Rojas MD Pre Op Diagnosis: gerd, hiatal hernia Patient Data Age: 69 Gender: F Height: 1.55 m Weight: 77.3 kg Allergies Allergy/AdvReac Type Severity Reaction Status Date / Time No Known Allergies Allergy Mild Verified 08/25/24 07:04 Home Medications Medication Instructions Recorded Confirmed Type alendronate 70 mg tablet 70 mg PO WEEKLY 08/08/21 08/25/24 History amlodipine 5 mg-benazepril 40 mg 5 - 40 cap PO DAILY 08/08/21 08/25/24 History capsule ergocalciferol (vitamin D2) 1,250 1,250 unit PO WEEKLY 08/08/21 08/25/24 History mcg (50,000 unit) capsule glimepiride 2 mg tablet 2 mg PO BID 08/08/21 08/25/24 History metformin 500 mg tablet 1,000 mg PO BID 08/08/21 08/25/24 History pantoprazole 40 mg tablet,delayed See Rx Instructions .Route 12/23/23 08/25/24 Rx release .COMPLEX #90 tabs levothyroxine 25 mcg capsule 25 mcg PO DAILY 03/18/24 08/25/24 History prednisone 10 mg tablet 10 mg PO DAILY 06/04/24 08/25/24 History simvastatin 40 mg tablet 40 mg PO DAILY 07/16/24 08/25/24 History Laboratory Tests 08/25/24 06:56 POC Capillary Glucose 130 H mg/dl (65-105) Patient hx anesthesia problems: none Family hx anesthesia problems: none Results Review: All pre-operative results and documents have been reviewed as part of the pre-operative evaluation. [facility] Past Medical History Medical History Abnormal abdominal exam Chronic GERD Colon cancer screening Diabetes Fatty liver Hiatal hernia History of fracture of clavicle (~12/24/22) Left HTN (hypertension) Hyperlipidemia Hyperplastic polyp of stomach Hypothyroidism Nonerosive esophageal reflux disease Obesity Osteoarthritis Periumbilical pain Rheumatoid arthritis Surgical History Surgical History H/O: hysterectomy History of hip replacement left hip 08/2024 History of left knee replacement Family History Family History Mother Diabetes mellitus Cerebrovascular accident Daughter Brain cancer Grandparent Breast cancer Social History Social History Smoking status: Never smoker Alcohol intake: never Substance use: never Substance use type: does not use Lack of Transportation: No Lack of Food: Never True Current Housing: I Have Housing Concerned About Future Housing: No Difficulty Paying Gas/Electric Bills: No Difficulty Paying for Meds: No Currently Unemployed: No Education: High School Diploma/GED Difficulty w/ Childcare or Family Care: No Living arrangements: with family Occupation/Education: retired Spiritual care concerns: No Anes - Eval Final PreProcedure Day of Procedure 08/25/24 07:18 Patient weight: obese Heart: regular rate and rhythm Lungs: clear to auscultation Airway: Mallampati scale class II Neurological: alert and oriented Last oral intake: >/= 8 hours ASA classification: III Emergent: no Anesthetic plan: proceed Anesthesia type and monitoring: general ETT and standard monitoring Results Review: All pre-operative results and documents have been reviewed as part of the pre-operative evaluation. Informed Consent: The patient's anesthetic plan and its attendant risks and benefits were discussed with the patient/family/POA. Questions were solicited and answers provided to the satisfaction of the patient/family/POA.
[2024-08-25] MEDS: ceFAZolin 2 GM/D5W 50 ML 2 GM/50 ML BAG IVPB (07:29)
[2024-08-25] MEDS: BUPIVACAINE/EPINEPHRINE 0.5% 50 ML VIAL 30 ML INFILTRATE (08:02)
--- NOTE | 2024-08-25 11:03 | W.PM.PROC2 ---
Procedure Note - Detailed Date of Procedure 08/25/24 Pre-op Diagnosis gerd, hiatal hernia Post-op Diagnosis Same Procedure Performed Laparoscopic Alin fundoplication with hiatal hernia repair Surgeon Kevin Rojas MD [facility] Ros[facility] ANSARI Anesthesia General and Local Indications Patient is a 69-year-old woman who has had reflux for many years. It has gotten worse such that even though she takes Protonix, she frequently has breakthrough heartburn and has to take Nexium as well. She had an extensive workup and also had her gallbladder evaluated. Diagnosis was recalcitrant gastroesophageal reflux with hiatal hernia. After discussion, she is taken to surgery now for hiatal hernia repair and laparoscopic Alin fundoplication Findings Moderate hiatal hernia, large diaphragmatic defect, severe fatty liver Description of Procedure Patient was taken to surgery and induced into general anesthesia. The abdomen is prepped and draped. Trocars were placed in the usual fashion using [place] optical trocars and a 5 mm camera. Prior to the initial trocar placement, a varies needle was introduced in the abdomen was insufflated with CO2 gas. After the trocars were placed, another incision was made near the xiphoid process and the Anna self-retaining retractor was position to elevate the lateral segment of the left lobe of the liver. As mentioned above, the liver had a very nodular appearance and was enlarged due to fatty change. The lateral segment was large and required careful positioning to allow good visualization none the hiatus. Patient was placed in reverse Trendelenburg. We then started using the LigaSure and divided the hepatogastric ligament up to the right osiris. I then was able to grasp the hernia sac at the apex of the hiatus and create an opening in the hernia sac and dissect in the mediastinum outside the hernia sac. I continued dividing hernia sac at the level of the hiatus and contain dissect eating in the tissue plane out side of the hernia sac. This was carried out extensively on the right side of the esophagus. We exposed the posterior aspect of the hiatus and the lower portion of the left osiris. I also was easily able to see the esophagus. I mobilized bluntly and with some LigaSure cautery adhesions to the esophagus. The hernia sac was mobilized so that most of it was within the abdominal cavity. We then turned the greater curvature of the stomach up anteriorly in place traction on the greater omentum. He using the LigaSure we then divided the greater omentum from the greater curvature the stomach and entered the lesser sac. This dissection was carried out towards the fundus and cardia of the stomach. There were numerous adhesions to the posterior stomach which also required division. We carefully avoided any traction injuries to the spleen. As we reached the hiatus, we continued mobilizing the upper stomach and freed the stomach from the posterior left osiris. This allowed easy access to the esophagus especially for dissection of posterior and left lateral adhesions. We performed a high dissection in the mediastinum mobilizing the esophagus and using the LigaSure. No bleeding was encountered. After this dissection and mobilization was completed, I then turned the stomach back so that the greater curve was on the patient's left side. We again entered the mediastinum along the esophagus and mobilized the esophagus further on its anterior aspect and its right lateral aspect. I then placed half-inch Sabrina drain around the distal esophagus and secured the ends to 1 another with a Vicryl endoloop. We placed some traction than on the gastroesophageal junction and took down a few more adhesions. We then retracted the gastroesophageal junction to the patient's right and found some more anterior and left lateral adhesions. Finally we had a full mobilization of the esophagus and at least 6 cm of intra-abdominal esophagus. Some
[2024-08-25 11:14] LABS: Glucose Point of Care 335 mg/dl (65-105)
[2024-08-25 11:14] LABS: Glucose Point of Care 298 mg/dl (65-105)
[2024-08-25] MEDS: INSULIN HUMAN REGULAR (*BKC) 100 UNITS/ML 10 UNITS IV PUSH (11:25)
[2024-08-25] MEDS: fentaNYL CITRATE INJ (*CRX) 100 MCG/2 ML VIAL 25 MCG IV PUSH ×4 (11:46→12:35)
[2024-08-25 12:08] LABS: Glucose Point of Care 301 mg/dl (65-105)
[2024-08-25 13:09] LABS: Glucose Point of Care 309 mg/dl (65-105)
--- NOTE | 2024-08-25 13:26 | ADMGEN ---
This patient, Andria White, was admitted to [facility] Surg Room 332-02. Patient/family oriented to hospital policies and general routines including ID bracelet, bed and alarms, visiting hours, pain management, procedures, bathroom and other care routines, personal items, smoking policy, room service/diet, and visiting hours. Information on how to activate the Rapid Response Team has been discussed. Patient/Family are encouraged to report perceived risks to care and to ask questions if they do not understand what they are told or what they should do.
[2024-08-25] MEDS: LACTATED RINGERS 1,000 ML 80 ML IV CONT (13:44)
[2024-08-25] MEDS: INSULIN ASPART (*BKC) 100 UNITS/ML SUB-Q ×2 (13:53→21:10)
--- NOTE | 2024-08-25 14:44 | PM.IMCN ---
Assessment and Plan Assessment and plan (1) Hiatal hernia: Code(s): K44.9 - Diaphragmatic hernia without obstruction or gangrene Status: Chronic Assessment and Plan: - underwent a laparoscopic Alin fundoplication with hiatal hernia repair on 08/25/2024 with Bob BRAXTON - primary management through surgical team - analgesics and antipyretics p.r.n. (2) Diabetes: Qualifiers: Diabetes mellitus complication status: without complication Diabetes mellitus jail insulin use: unspecified roasterman insulin use status Diabetes mellitus type: type 2 Qualified Code(s): E11.9 - Type 2 diabetes mellitus without complications Code(s): E11.9 - Type 2 diabetes mellitus without complications Status: Chronic Assessment and Plan: - hypoglycemia protocol - POC blood glucose ACHS - home medication: glimepiride 2 mg b.i.d., metformin 1000 mg b.i.d. - correct regimen ordered - high dose TIDWM and HS, based off BMI - A1C ordered, none on file (3) GERD (gastroesophageal reflux disease): Qualifiers: Esophagitis presence: esophagitis presence not specified Qualified Code(s): K21.9 - Gastro-esophageal reflux disease without esophagitis Code(s): K21.9 - Gastro-esophageal reflux disease without esophagitis Status: Chronic Assessment and Plan: - continue daily pantoprazole 40 mg p.o. (4) HTN (hypertension): Qualifiers: Hypertension type: primary hypertension Qualified Code(s): I10 - Essential (primary) hypertension Code(s): I10 - Essential (primary) hypertension Status: Chronic Assessment and Plan: - chronic, currently 119/71 - continue home medications: Amlodipine 5 mg daily, benazepril (subbed to lisinopril) 40 mg daily - monitor Plan Diet: Clear liquid GI Prophylaxis: Pantoprazole p.o. DVT Prophylaxis: Lovenox SQ Lines: Peripheral Code Status: Full code HPI Date of Consult Consult date: 08/25/24 Requesting Physician: Kevin Rojas MD Primary Care Provider: Ivan Wilkes, Consult Narrative Reason for consult: Perioperative medical management-diabetes, hypertension, RA Narrative: 69 y/o F presents here for a hiatal hernia repair with PMH of GERD, hiatal hernia, diabetes, rheumatoid arthritis, hypertension, and umbilical hernia. The patient has been following with General Surgery outpatient for acid reflux and a medium-sized hiatal hernia. She is currently on Protonix daily with Nexium for breakthrough heartburn. Esophageal manometry in March of 2024 showed adequate esophageal body motility and GB testing negative. The patient is undergoing a laparoscopic Alin fundoplication on 08/25/2024. Postoperatively she reports pain in her shoulders, upper abdomen, and upper back. Had mild nausea without vomiting which has since resolved. LBM was yesterday morning (08/24). Denies any recent changes to her medical history or medications. Preop VS: 97.1? F, HR 80, RR 16, 169/79, and 100% on RA. Preop workup: No leukocytosis, no anemia, creatinine 0.5 and GFR >60, glucose 155. Review of Systems Review of Systems: All systems reviewed & are unremarkable except as noted in HPI and below PMFSH Past Medical History Medical History Abnormal abdominal exam Chronic GERD Colon cancer screening Diabetes Fatty liver Hiatal hernia History of fracture of clavicle (~12/24/22) Left HTN (hypertension) Hyperlipidemia Hyperplastic polyp of stomach Hypothyroidism Iron deficiency anemia Obesity Osteoarthritis Rheumatoid arthritis Surgical History Surgical History H/O: hysterectomy History of hip replacement left hip 08/2024 History of left knee replacement Family History Family History Mother Diabetes mellitus Cerebrovascu
[2024-08-25] MEDS: MORPHINE SULFATE (*CRX) 4 MG/ML INJ IV PUSH (18:52)
[2024-08-25] MEDS: metFORMIN HCL 500 MG TABLET 1000 MG PO (18:53)
[2024-08-25] MEDS: GLIMEPIRIDE 2 MG TABLET PO (18:54)
[2024-08-25 18:58] LABS: Glucose Point of Care 357 mg/dl (65-105)
[2024-08-25 20:17] LABS: Glucose Point of Care 363 mg/dl (65-105)
[2024-08-25] MEDS: SENNA/DOCUSATE SODIUM TABLET 2 TAB PO (20:35)
[2024-08-25] MEDS: ENOXAPARIN 30 MG/0.3 ML SYRINGE SUB-Q (20:35)
--- NOTE | ~2024-08-26 | CT_ITS ---
CT of the Abdomen and Pelvis: Indication: Abdominal pain, status post fundoplication Technique: 2.5 mm axial scans were obtained through the abdomen and pelvis following intravenous adm inistration of 100 cc of Omnipaque 350. Dose reduction technique was used on this scan by utilizing a utomated exposure control and iterative reconstruction technique. The dose-length product (DLP) was 9 14.21 mGy-cm. COMPARISON: 12/31/2023 Findings: Scans through the lung bases demonstrate small bilateral pleural effusions with partial bi lateral lower lobe atelectasis. There is diffuse hepatic steatosis. The spleen, pancreas, gallbladder, adrenals and kidneys are withi n normal limits. No evidence of aortic aneurysm. No lymphadenopathy. Somewhat masslike appearance of the GE junction region/gastric fundus is presumably related to recent fundoplication surgery. No bowel obstruction evident. Soft tissue gas in the anterior subcutaneous s oft tissues is presumably postoperative in nature. Small ventral fat-containing hernia noted. Images through the pelvis were performed. Urinary bladder unremarkable. No pelvic mass seen. No ascit es. Impression: Somewhat masslike appearance of the GE junction region/gastric fundus is presumably related to recent fundoplication surgery. No wally bowel obstruction evident. Small bilateral pleural effusions with partial bilateral lower lobe atelectasis. Diffuse hepatic steatosis. Extensive soft tissue gas in the subcutaneous soft tissues is presumably postoperative in nature. Reviewed, dictated and finalized at [facility]. Impression: Somewhat masslike appearance of the GE junction region/gastric fundus is presum ably related to recent fundoplication surgery. No wally bowel obstruction evide nt. Small bilateral pleural effusions with partial bilateral lower lobe atelectasis . Diffuse hepatic steatosis. Extensive soft tissue gas in the subcutaneous soft tissues is presumably postop erative in nature.
[2024-08-26 00:16] VITALS: BP 171/79; PULSE 73; RESP 20; TEMP 36.2; O2SAT 94
[2024-08-26] MEDS: LACTATED RINGERS 1,000 ML 80 ML IV CONT (02:24)
[2024-08-26] MEDS: oxyCODONE/ACETAMINOPHEN (*CRX) 10-325 MG TABLET 1 TAB PO ×3 (03:08→16:34)
[2024-08-26] MEDS: LEVOTHYROXINE SODIUM 25 MCG TABLET PO (06:02)
[2024-08-26 06:35] LABS: Hematocrit 35.2 % (37.0-47.0); Hemoglobin 10.9 g/dL (12.0-15.0); Mean Corpuscular Hemoglobin 23.8 pg (26-34); Mean Corpuscular Volume 76.9 fl (80-100); Mean Platelet Volume 10.5 fl (7.4-10.4); Platelet Count Result 147 k/mm3 (150-375); Red Blood Count 4.58 M/mm3 (4.2-5.4); Red Cell Distribution Width 16.9 % (11.5-14.5); White Blood Count 7.9 K/mm3 (4.5-10.0)
[2024-08-26 06:47] LABS: Anion Gap 6 mmol/L (4-12); Blood Urea Nitrogen 10 mg/dL (7-17); Calcium 9.1 mg/dL (8.4-10.2); Carbon Dioxide 28 mmol/L (22-30); Chloride 101 mmol/L (98-107); Estimated CRCL calculation 83 ml/min; Estimated Glomerular Filt Rate > 60; Glucose 132 mg/dL (65-110); Hemoglobin A1C 9.1 % (<5.7); Potassium 3.6 mmol/L (3.4-5.0); Sodium 135 mmol/L (137-145)
[2024-08-26 07:59] LABS: Glucose Point of Care 138 mg/dl (65-105)
[2024-08-26] MEDS: SIMVASTATIN 20 MG TABLET 40 MG PO (09:15)
[2024-08-26] MEDS: PANTOPRAZOLE 40 MG TABLET PO (09:15)
[2024-08-26] MEDS: lisinopriL 20 MG TABLET 40 MG PO (09:15)
[2024-08-26] MEDS: metFORMIN HCL 500 MG TABLET 1000 MG PO (09:15)
[2024-08-26] MEDS: GLIMEPIRIDE 2 MG TABLET PO (09:15)
[2024-08-26] MEDS: amLODIPine BESYLATE 5 MG TABLET BY MOUTH (09:16)
[2024-08-26 09:46] VITALS: O2SAT 94
--- NOTE | 2024-08-26 10:10 | WPDANESPN ---
Anes - Prog Note Post-Op Date/Time: 08/26/24 10:10 Cardiovascular status: normal Respiratory status: normal Airway patency: baseline Mental status: baseline Post-Op hydration status: normal Vital Signs: Last Vital Signs Temp 36.2 C L 08/26/24 00:16 Pulse 73 08/26/24 00:16 Resp 20 08/26/24 00:16 BP 171/79 H 08/26/24 00:16 Pulse Ox 94 08/26/24 09:46 O2 Del Method Room Air 08/26/24 09:46 O2 Flow Rate 8 08/25/24 11:15 Pain Score (VAS): 2 I/O: Intake & Output 08/25/24 08/26/24 08/26/24 23:59 07:59 15:59 Intake Total 600 1200 Balance 600 1200 Laboratory Tests 08/26/24 06:14 08/26/24 06:14 08/25/24 08/25/24 08/25/24 11:10 11:11 12:06 WBC RBC Hgb Hct MCV MCH MCHC RDW Plt Count MPV Sodium Potassium Chloride Carbon Dioxide Anion Gap BUN Creatinine Estim Creat Clear Calc Estimated GFR Glucose POC Capillary Glucose 335 H 298 H 301 H Hemoglobin A1c Calcium 08/25/24 08/25/24 08/25/24 13:04 18:54 20:15 WBC RBC Hgb Hct MCV MCH MCHC RDW Plt Count MPV Sodium Potassium Chloride Carbon Dioxide Anion Gap BUN Creatinine Estim Creat Clear Calc Estimated GFR Glucose POC Capillary Glucose 309 H 357 H 363 H Hemoglobin A1c Calcium 08/26/24 08/26/24 06:14 07:51 WBC 7.9 RBC 4.58 Hgb 10.9 L Hct 35.2 L MCV 76.9 L MCH 23.8 L MCHC 31.0 L RDW 16.9 H Plt Count 147 L MPV 10.5 H Sodium 135 L Potassium 3.6 Chloride 101 Carbon Dioxide 28 Anion Gap 6 BUN 10 Creatinine 0.50 L Estim Creat Clear Calc 83 Estimated GFR > 60 Glucose 132 H POC Capillary Glucose 138 H Hemoglobin A1c 9.1 H Calcium 9.1 Post-procedural complaints: none Patient Feedback: Patient satisfied with anesthetic care.
--- NOTE | 2024-08-26 10:19 | PM.IMCN ---
Assessment and Plan Assessment and plan (1) Hiatal hernia: Code(s): K44.9 - Diaphragmatic hernia without obstruction or gangrene Status: Chronic Assessment and Plan: - underwent a laparoscopic Alin fundoplication with hiatal hernia repair on 08/25/2024 with Bob BRAXTON - primary management through surgical team - analgesics and antipyretics p.r.n. (2) Diabetes: Qualifiers: Diabetes mellitus complication status: without complication Diabetes mellitus reference data expert insulin use: unspecified reference data expert insulin use status Diabetes mellitus type: type 2 Qualified Code(s): E11.9 - Type 2 diabetes mellitus without complications Code(s): E11.9 - Type 2 diabetes mellitus without complications Status: Chronic Assessment and Plan: - hypoglycemia protocol - POC blood glucose ACHS - home medication: glimepiride 2 mg b.i.d., metformin 1000 mg b.i.d.- will hold while in the hospital - correct regimen ordered - high dose TIDWM and HS, based off BMI - A1C ordered- 9.1 - discussed that she would need a better glucose control once discharge (3) GERD (gastroesophageal reflux disease): Qualifiers: Esophagitis presence: esophagitis presence not specified Qualified Code(s): K21.9 - Gastro-esophageal reflux disease without esophagitis Code(s): K21.9 - Gastro-esophageal reflux disease without esophagitis Status: Chronic Assessment and Plan: - continue daily pantoprazole 40 mg p.o. (4) HTN (hypertension): Qualifiers: Hypertension type: primary hypertension Qualified Code(s): I10 - Essential (primary) hypertension Code(s): I10 - Essential (primary) hypertension Status: Chronic Assessment and Plan: - chronic, currently 119/71 - continue home medications: Amlodipine 5 mg daily, benazepril (subbed to lisinopril) 40 mg daily - monitor Plan Diet: Clear liquid GI Prophylaxis: Pantoprazole p.o. DVT Prophylaxis: Lovenox SQ Lines: Peripheral Code Status: Full code HPI Date of Consult Consult date: 08/26/24 Requesting Physician: Kevin Rojas MD Primary Care Provider: Ivan WilkesMD Consult Narrative Reason for consult: Perioperative medical management-diabetes, hypertension, RA Narrative: 69 y/o F presents here for a hiatal hernia repair with PMH of GERD, hiatal hernia, diabetes, rheumatoid arthritis, hypertension, and umbilical hernia. The patient has been following with General Surgery outpatient for acid reflux and a medium-sized hiatal hernia. She is currently on Protonix daily with Nexium for breakthrough heartburn. Esophageal manometry in March of 2024 showed adequate esophageal body motility and GB testing negative. The patient is undergoing a laparoscopic Alin fundoplication on 08/25/2024. Postoperatively she reports pain in her shoulders, upper abdomen, and upper back. Had mild nausea without vomiting which has since resolved. LBM was yesterday morning (08/24). Denies any recent changes to her medical history or medications. Preop VS: 97.1? F, HR 80, RR 16, 169/79, and 100% on RA. Preop workup: No leukocytosis, no anemia, creatinine 0.5 and GFR >60, glucose 155. Review of Systems Review of Systems: All systems reviewed & are unremarkable except as noted in HPI and below PMFSH Past Medical History Medical History Abnormal abdominal exam Chronic GERD Colon cancer screening Diabetes Fatty liver Hiatal hernia History of fracture of clavicle (~12/24/22) Left HTN (hypertension) Hyperlipidemia Hyperplastic polyp of stomach Hypothyroidism Iron deficiency anemia Obesity Osteoarthritis Rheumatoid arthritis Surgical History Surgical History H/O: hysterectomy History of hip replacement left hip 08/2024 History of left knee replacement Family History Family Hist
[2024-08-26 10:28] VITALS: BP 133/70; PULSE 88; RESP 16; TEMP 36.2; O2SAT 92
[2024-08-26 11:39] LABS: Glucose Point of Care 213 mg/dl (65-105)
[2024-08-26] MEDS: ENOXAPARIN 30 MG/0.3 ML SYRINGE SUB-Q ×2 (12:07→20:36)
[2024-08-26] MEDS: INSULIN ASPART (*BKC) 100 UNITS/ML SUB-Q ×2 (12:21→17:59)
[2024-08-26] MEDS: polyethylene glycoL 3350 17 GM POWD.PACK PO (12:22)
--- NOTE | 2024-08-26 14:16 | PM.PNGS ---
Progress Note: A&P Assessment and Plan (1) Nonerosive esophageal reflux disease: Code(s): K21.9 - Gastro-esophageal reflux disease without esophagitis Status: Chronic Assessment and Plan: Doing well postop day 1. Will advance to full liquids. Start increasing activity as tolerated and ambulate in the halls today. Encouraged her to get up to the chair during the day. (2) Hiatal hernia: Code(s): K44.9 - Diaphragmatic hernia without obstruction or gangrene Status: Chronic Assessment and Plan: S/p laparoscopic Alin fundoplication with hiatal hernia repair (3) Diabetes: Qualifiers: Diabetes mellitus type: type 2 Diabetes mellitus leader assembler insulin use: unspecified leader assembler insulin use status Diabetes mellitus complication status: without complication Qualified Code(s): E11.9 - Type 2 diabetes mellitus without complications Code(s): E11.9 - Type 2 diabetes mellitus without complications Status: Chronic Assessment and Plan: Hgb A1C 9.1. Hospitalist consulted for medical management. She is currently on sliding scale insulin. Glucose is better today from high 300's down to 100-200. (4) Rheumatoid arthritis: Qualifiers: Rheumatoid arthritis location: unspecified site Rheumatoid factor presence: unspecified presence Qualified Code(s): M06.9 - Rheumatoid arthritis, unspecified Code(s): M06.9 - Rheumatoid arthritis, unspecified Status: Inactive (5) HTN (hypertension): Qualifiers: Hypertension type: primary hypertension Qualified Code(s): I10 - Essential (primary) hypertension Code(s): I10 - Essential (primary) hypertension Status: Chronic (6) Umbilical hernia: Qualifiers: Obstruction and gangrene presence: without obstruction or gangrene Qualified Code(s): K42.9 - Umbilical hernia without obstruction or gangrene Code(s): K42.9 - Umbilical hernia without obstruction or gangrene Status: Chronic Plan I have discussed the patient's case and plan of care with Dr. Rojas. Subjective Subjective Date/Time Seen: 08/26/24 14:16 Post Op day: 1 Patient reports: tolerating liquids well, voiding w/o difficulty, flatus and no bowel movement Interval history: Patient reports her postoperative pain is well controlled. She denies any regurgitation or dysphagia. She tolerated clear liquids. She has been ambulating to the bathroom and tolerating this well. NO specific complaints at this time. Exam Const: General: comfortable and no acute distress Resp: Effort & Inspection: normal respiratory effort Auscultation: clear to auscultation bilaterally Cardio: Rate: regular rate Rhythm: regular rhythm GI: Inspection: non-distended and incision (dry and glue intact) GI Palp: Yes Soft to palpation, Yes Tenderness to palpation present (GI) (tenderness in the upper abdomen, and expected incisional tenderness) and No Guarding due to palpation present (GI) Auscultation: normal bowel sounds Objective Data Vital Signs Vital Signs: Vital Signs - 24 hr 08/25/24 15:45 08/25/24 14:28 08/25/24 18:21 Temperature 97.5 F L 97.7 F Pulse Rate 69 68 Respiratory Rate 18 18 Blood Pressure 126/67 126/70 Pulse Oximetry 91 98 100 Oxygen Delivery Room Air 08/25/24 20:05 08/25/24 22:00 08/26/24 00:16 Temperature 97.1 F L 97.1 F L Pulse Rate 99 73 Respiratory Rate 18 20 Blood Pressure 137/61 171/79 H Pulse Oximetry 95 94 Oxygen Delivery Room Air 08/26/24 09:46 08/26/24 10:28 Temperature 97.2 F L Pulse Rate 88 Respiratory Rate 16 Blood Pressure 133/70 Pulse Oximetry 94 92 Oxygen Delivery Room Air Intake/Output Intake/Output: Intake & Output 08/23/24 08/24/24 08/25/24 08/26/24 23:59 23:59 23:59 23:59 Intake Total 850 1440 Balance 850 1440 Meds/Results Medications: Active Medications Generic Name Dose Route Start Last Admin Trade Name Freq PRN Reason Stop D
[2024-08-26 14:28] VITALS: BP 154/75; PULSE 94; RESP 16; TEMP 36.2; O2SAT 92
--- NOTE | 2024-08-26 14:30 | WPDANESPN ---
Anes - Prog Note Post-Op Date/Time: 08/26/24 14:30 Cardiovascular status: normal Respiratory status: normal Airway patency: baseline Mental status: baseline Post-Op hydration status: normal Vital Signs: Last Vital Signs Temp 36.2 C L 08/26/24 10:28 Pulse 88 08/26/24 10:28 Resp 16 08/26/24 10:28 BP 133/70 08/26/24 10:28 Pulse Ox 92 08/26/24 10:28 O2 Del Method Room Air 08/26/24 09:46 O2 Flow Rate 8 08/25/24 11:15 Pain Score (VAS): 0 I/O: Intake & Output 08/25/24 08/26/24 08/26/24 23:59 07:59 15:59 Intake Total 600 1200 240 Balance 600 1200 240 Laboratory Tests 08/26/24 06:14 08/26/24 06:14 08/25/24 08/25/24 08/26/24 18:54 20:15 06:14 WBC 7.9 RBC 4.58 Hgb 10.9 L Hct 35.2 L MCV 76.9 L MCH 23.8 L MCHC 31.0 L RDW 16.9 H Plt Count 147 L MPV 10.5 H Sodium 135 L Potassium 3.6 Chloride 101 Carbon Dioxide 28 Anion Gap 6 BUN 10 Creatinine 0.50 L Estim Creat Clear Calc 83 Estimated GFR > 60 Glucose 132 H POC Capillary Glucose 357 H 363 H Hemoglobin A1c 9.1 H Calcium 9.1 08/26/24 08/26/24 07:51 11:32 WBC RBC Hgb Hct MCV MCH MCHC RDW Plt Count MPV Sodium Potassium Chloride Carbon Dioxide Anion Gap BUN Creatinine Estim Creat Clear Calc Estimated GFR Glucose POC Capillary Glucose 138 H 213 H Hemoglobin A1c Calcium Post-procedural complaints: none Patient Feedback: Patient satisfied with anesthetic care.
[2024-08-26 16:41] LABS: Glucose Point of Care 221 mg/dl (65-105)
[2024-08-26 20:09] LABS: Glucose Point of Care 196 mg/dl (65-105)
[2024-08-26 20:25] VITALS: BP 141/74; PULSE 100; RESP 16; TEMP 36.9; O2SAT 94
[2024-08-27 00:12] VITALS: BP 148/83; PULSE 97; RESP 14; TEMP 36.4; O2SAT 92
[2024-08-27 05:33] VITALS: BP 146/87; PULSE 100; RESP 18; TEMP 37.1; O2SAT 96
[2024-08-27] MEDS: LEVOTHYROXINE SODIUM 25 MCG TABLET PO (06:00)
[2024-08-27 06:09] LABS: Hematocrit 38.7 % (37.0-47.0); Hemoglobin 11.5 g/dL (12.0-15.0); Mean Corpuscular HGB Conc 29.7 g/dl (32-36); Mean Corpuscular Volume 77.2 fl (80-100); Mean Platelet Volume 10.2 fl (7.4-10.4); Platelet Count Result 158 k/mm3 (150-375); Red Blood Count 5.01 M/mm3 (4.2-5.4); Red Cell Distribution Width 16.8 % (11.5-14.5)
[2024-08-27 06:18] LABS: Anion Gap 8 mmol/L (4-12); Blood Urea Nitrogen 6 mg/dL (7-17); Calcium 8.9 mg/dL (8.4-10.2); Carbon Dioxide 26 mmol/L (22-30); Chloride 99 mmol/L (98-107); Estimated CRCL calculation 101 ml/min; Estimated Glomerular Filt Rate > 60; Glucose 204 mg/dL (65-110); Potassium 3.8 mmol/L (3.4-5.0); Sodium 133 mmol/L (137-145)
[2024-08-27 07:45] LABS: Glucose Point of Care 211 mg/dl (65-105)
--- NOTE | 2024-08-27 08:00 | PM.PNGS ---
Progress Note: A&P Assessment and Plan (1) Status post laparoscopic Alin fundoplication: Code(s): Z98.890 - Other specified postprocedural states Status: Acute Assessment and Plan: Patient nauseated with more abdominal pain this morning. Not having heartburn. She is tachycardic and her blood pressure is elevated but no fever. White blood cell count higher than yesterday but only 9000. Exam suggests she is distended but she has a protuberant abdomen has baseline. Will get CT scan with IV contrast this morning to better evaluate. NPO for now. (2) Hiatal hernia: Code(s): K44.9 - Diaphragmatic hernia without obstruction or gangrene Status: Chronic Assessment and Plan: Repaired at surgery (3) Nonerosive esophageal reflux disease: Code(s): K21.9 - Gastro-esophageal reflux disease without esophagitis Status: Chronic (4) Diabetes: Qualifiers: Diabetes mellitus type: type 2 Diabetes mellitus intermission coordinator insulin use: unspecified intermission coordinator insulin use status Diabetes mellitus complication status: without complication Qualified Code(s): E11.9 - Type 2 diabetes mellitus without complications Code(s): E11.9 - Type 2 diabetes mellitus without complications Status: Chronic Assessment and Plan: Blood sugars 200 this morning but have been in the 100s. Hospitalist seeing. (5) HTN (hypertension): Qualifiers: Hypertension type: primary hypertension Qualified Code(s): I10 - Essential (primary) hypertension Code(s): I10 - Essential (primary) hypertension Status: Chronic Assessment and Plan: Blood pressure elevated slightly. Hospitalist seeing. Subjective Subjective Date/Time Seen: 08/27/24 08:00 Post Op day: 2 Patient reports: still having pain (Abdomen and back), voiding w/o difficulty, nausea (Patient ask for emesis bag while I was seeing her) and afebrile Review of Systems Review of Systems: All systems reviewed & are unremarkable except as noted in HPI and below (HPI) Exam Const: General: cooperative, alert, awake, uncomfortable and overweight GI: Inspection: distended and incision (All dry and healing) GI Palp: Yes Soft to palpation, Yes Tenderness to palpation present (GI) (Incisional tenderness), No Guarding due to palpation present (GI), No Hernia present, No Palpable mass present and No Ascites present Objective Data Vital Signs Vital Signs: Vital Signs - 24 hr 08/26/24 09:46 08/26/24 10:28 08/26/24 14:28 Temperature 36.2 C L 36.2 C L Pulse Rate 88 94 Respiratory Rate 16 16 Blood Pressure 133/70 154/75 H Pulse Oximetry 94 92 92 Oxygen Delivery Room Air 08/26/24 20:25 08/26/24 20:00 08/27/24 00:12 Temperature 36.9 C 36.4 C L Pulse Rate 100 97 Respiratory Rate 16 14 Blood Pressure 141/74 H 148/83 H Pulse Oximetry 94 92 Oxygen Delivery Room Air 08/27/24 05:33 Temperature 37.1 C Pulse Rate 100 Respiratory Rate 18 Blood Pressure 146/87 H Pulse Oximetry 96 Oxygen Delivery Intake/Output Intake/Output: Intake & Output 08/24/24 08/25/24 08/26/24 08/27/24 23:59 23:59 23:59 23:59 Intake Total 850 1800 400 Balance 850 1800 400 Meds/Results Medications: Active Medications Generic Name Dose Route Start Last Admin Trade Name Freq PRN Reason Stop Dose Admin Acetaminophen 500 mg 08/25/24 12:43 Acetaminophen 500 Mg Tablet PO Q6H PRN Pain Rated 1-3 Alendronate Sodium 70 mg 08/27/24 09:00 Alendronate Sodium 70 Mg Tablet PO Fr@0900 [facility] Amlodipine Besylate 5 mg 08/26/24 09:00 08/26/24 09:16 Amlodipine Besylate 5 Mg Tablet BY MOUTH 5 mg DAILY BOWEN Administration Dextrose 12.5 gm 08/25/24 12:43 Dextrose 50% 25 Gm/50 Ml Syringe IV PUSH PRN PRN Hypoglycemia Protocol Enoxaparin Sodium 30 mg 08/25/24 21:00 08/26/24 20:36 Enoxaparin 30 Mg/0.3 Ml Syringe SUB-Q 30 mg Q12HR BOWEN Administration Glim
--- NOTE | 2024-08-27 08:15 | PM.IMPN ---
Progress Note: A&P Assessment and Plan (1) Hiatal hernia: Code(s): K44.9 - Diaphragmatic hernia without obstruction or gangrene Status: Chronic Assessment and Plan: Underwent a laparoscopic Alin fundoplication with hiatal hernia repair on 08/25/2024 with Bob BRAXTON - primary management through surgical team - analgesics and antipyretics p.r.n. --Treatment of pain: Morphine/Percocet prn --Treatment of nausea as noted 08/27 CT abd/pelvis Impression: Somewhat masslike appearance of the GE junction region/gastric fundus is presumably related to recent fundoplication surgery. No wally bowel obstruction evident. Small bilateral pleural effusions with partial bilateral lower lobe atelectasis. Diffuse hepatic steatosis. Extensive soft tissue gas in the subcutaneous soft tissues is presumably postoperative in nature. (2) Diabetes: Qualifiers: Diabetes mellitus complication status: without complication Diabetes mellitus senior care insulin use: unspecified senior care insulin use status Diabetes mellitus type: type 2 Qualified Code(s): E11.9 - Type 2 diabetes mellitus without complications Code(s): E11.9 - Type 2 diabetes mellitus without complications Status: Chronic Assessment and Plan: Hypoglycemia protoco. Home medication: glimepiride 2 mg b.i.d., metformin 1000 mg b.i.d.- will hold while in the hospital - POC blood glucose ACHS - correct regimen ordered - high dose TIDWM and HS, based off BMI - A1C ordered- 9.1 - discussed that she would need a better glucose control once discharge (3) GERD (gastroesophageal reflux disease): Qualifiers: Esophagitis presence: esophagitis presence not specified Qualified Code(s): K21.9 - Gastro-esophageal reflux disease without esophagitis Code(s): K21.9 - Gastro-esophageal reflux disease without esophagitis Status: Chronic Assessment and Plan: - continue daily pantoprazole 40 mg p.o. (4) HTN (hypertension): Qualifiers: Hypertension type: primary hypertension Qualified Code(s): I10 - Essential (primary) hypertension Code(s): I10 - Essential (primary) hypertension Status: Chronic Assessment and Plan: Blood pressure elevated in the setting of pain, 146/87 - continue home medications: Amlodipine 5 mg daily, benazepril (subbed to lisinopril) 40 mg daily. Hold lisinopril in AM pending increase PO intake --Pain control - monitor (5) Nausea: Code(s): R11.0 - Nausea Status: Acute Assessment and Plan: Zofran/compazine prn Plan Diet: NPO, advance per surgery GI Prophylaxis: Pantoprazole p.o. DVT Prophylaxis: Lovenox SQ Lines: Peripheral Code Status: Full code Time Spent With Patient Time: 49 minutes Subjective Date/time seen: 08/27/24 08:15 Interval history: Nauseated and having generalized abdominal pain. No vomiting, has been drinking fluids. Sweating. No fevers. Passing gas. Hasn't had a bowel movement yet. CT showed likely post op changes but no evidence of infection or obstruction Review of Systems Review of Systems: No chest pain, shortness of breath or other symptoms All systems reviewed & are unremarkable except as noted in HPI and below Objective Data Vital Signs Vital Signs: Vital Signs - 24 hr 08/26/24 09:46 08/26/24 10:28 08/26/24 14:28 Temperature 97.2 F L 97.1 F L Pulse Rate 88 94 Respiratory Rate 16 16 Blood Pressure 133/70 154/75 H Pulse Oximetry 94 92 92 Oxygen Delivery Room Air 08/26/24 20:25 08/26/24 20:00 08/27/24 00:12 Temperature 98.4 F 97.5 F L Pulse Rate 100 97 Respiratory Rate 16 14 Blood Pressure 141/74 H 148/83 H Pulse Oximetry 94 92 Oxygen Delivery Room Air 08/27/24 05:33 Temperature 98.8 F Pulse Rate 100 Respiratory Rate 18 Blood Pressure 146/87 H Pulse Oximetry 96 Oxygen Delivery Intake/Output Intake/Output: Intake & Output 08/24/24 08/25/24 08/26/24
[2024-08-27] MEDS: lisinopriL 20 MG TABLET 40 MG PO (08:39)
[2024-08-27] MEDS: PANTOPRAZOLE 40 MG TABLET PO (08:39)
[2024-08-27] MEDS: amLODIPine BESYLATE 5 MG TABLET BY MOUTH (08:39)
[2024-08-27] MEDS: ONDANSETRON INJ 4 MG/2 ML VIAL IV PUSH (08:39)
[2024-08-27] MEDS: SIMVASTATIN 20 MG TABLET 40 MG PO (08:39)
[2024-08-27] MEDS: oxyCODONE/ACETAMINOPHEN (*CRX) 10-325 MG TABLET 1 TAB PO (08:40)
[2024-08-27 11:47] LABS: Glucose Point of Care 226 mg/dl (65-105)
[2024-08-27 14:29] VITALS: BP 162/97; PULSE 101; RESP 18; TEMP 35.6; O2SAT 90
[2024-08-27] MEDS: polyethylene glycoL 3350 17 GM POWD.PACK PO (15:26)
[2024-08-27] MEDS: traMADol HCL (*CRX) 50 MG TABLET PO (15:26)
[2024-08-27] MEDS: ENOXAPARIN 40 MG/0.4 ML SYRINGE SUB-Q (15:27)
[2024-08-27] MEDS: ALENDRONATE SODIUM 70 MG TABLET PO (15:27)
[2024-08-27] MEDS: SODIUM CHLORIDE 0.9% IV 1000 ML BAG IVPB (15:28)
[2024-08-27] MEDS: INSULIN GLARGINE (*BKC) 100 UNITS/ML 6 UNITS SUB-Q (15:28)
[2024-08-27 16:26] LABS: Glucose Point of Care 256 mg/dl (65-105)
[2024-08-27] MEDS: INSULIN ASPART (*BKC) 100 UNITS/ML SUB-Q (18:22)
[2024-08-27 18:51] VITALS: BP 148/68
[2024-08-27] MEDS: SENNA/DOCUSATE SODIUM TABLET 2 TAB PO (20:05)
[2024-08-27] MEDS: ACETAMINOPHEN 500 MG TABLET PO (20:06)
[2024-08-27] MEDS: LACTATED RINGERS 1,000 ML 80 ML IV CONT (22:06)
[2024-08-28 02:06] LABS: Glucose Point of Care 198 mg/dl (65-105)
[2024-08-28] MEDS: LEVOTHYROXINE SODIUM 25 MCG TABLET PO (05:39)
[2024-08-28 06:06] VITALS: BP 167/87; PULSE 97; RESP 18; TEMP 36.8; O2SAT 90
[2024-08-28 06:23] LABS: Basophils Percent Auto 0.3 % (0.2-1.2); Eosinophils Percent Auto 0.2 % (0-4.4); Hematocrit 38.5 % (37.0-47.0); Hemoglobin 11.4 g/dL (12.0-15.0); Immature Granulocyte Absolute 0.06 K/mm3 (0.00-0.031); Immature Granulocyte Percent A 0.6 % (0-0.5); Lymphocytes Absolute Auto 1.51 K/mm3 (0.9-3.2); Lymphocytes Percent Auto 15.7 % (18.3-44.2); Mean Corpuscular HGB Conc 29.6 g/dl (32-36); Mean Corpuscular Hemoglobin 23.8 pg (26-34); Mean Corpuscular Volume 80.5 fl (80-100); Mean Platelet Volume 10.3 fl (7.4-10.4); Monocytes Absolute Auto 0.8 K/mm3 (0.1-0.6); Monocytes Percent Auto 7.9 % (2.6-8.5); Neutrophils Absolute Auto 7.2 K/mm3 (1.3-6.7); Neutrophils Percent Auto 75.3 % (45.5-73.1); Platelet Count Result 152 k/mm3 (150-375); Red Blood Count 4.78 M/mm3 (4.2-5.4); Red Cell Distribution Width 17.4 % (11.5-14.5); White Blood Count 9.6 K/mm3 (4.5-10.0)
[2024-08-28 06:35] LABS: Alanine Aminotransferase 63 U/L (6-35); Albumin Level 3.4 g/dL (3.5-5.1); Alkaline Phosphatase 75 U/L (38-126); Anion Gap 6 mmol/L (4-12); Aspartate Amino Transferase 37 U/L (14-36); Bilirubin,Total 1.2 mg/dL (0.2-1.3); Blood Urea Nitrogen 7 mg/dL (7-17); Calcium 8.7 mg/dL (8.4-10.2); Carbon Dioxide 24 mmol/L (22-30); Chloride 101 mmol/L (98-107); Estimated CRCL calculation 101 ml/min; Estimated Glomerular Filt Rate > 60; Glucose 162 mg/dL (65-110); Potassium 3.7 mmol/L (3.4-5.0); Sodium 131 mmol/L (137-145)
[2024-08-28 06:55] LABS: Anisocytosis 2+; Hypochromasia 1+; Microcytosis 1+ (NORMAL); Platelet Estimate Adequate (Adequate); Schistocytes None Seen
[2024-08-28] MEDS: amLODIPine BESYLATE 5 MG TABLET BY MOUTH (07:51)
[2024-08-28] MEDS: PANTOPRAZOLE 40 MG TABLET PO (07:51)
[2024-08-28] MEDS: SIMVASTATIN 20 MG TABLET 40 MG PO (07:51)
[2024-08-28] MEDS: traMADol HCL (*CRX) 50 MG TABLET PO ×2 (07:51→20:52)
[2024-08-28] MEDS: lisinopriL 20 MG TABLET 40 MG PO (07:52)
[2024-08-28] MEDS: polyethylene glycoL 3350 17 GM POWD.PACK PO (07:52)
[2024-08-28] MEDS: ENOXAPARIN 40 MG/0.4 ML SYRINGE SUB-Q (07:52)
[2024-08-28 08:03] LABS: Glucose Point of Care 165 mg/dl (65-105)
--- NOTE | 2024-08-28 08:20 | PM.IMPN ---
Progress Note: A&P Assessment and Plan (1) Hiatal hernia: Code(s): K44.9 - Diaphragmatic hernia without obstruction or gangrene Status: Chronic Assessment and Plan: Underwent a laparoscopic Alin fundoplication with hiatal hernia repair on 08/25/2024 with Bob BRAXTON - primary management through surgical team - analgesics and antipyretics p.r.n. --Treatment of pain: Morphine/Percocet prn --Treatment of nausea as noted 08/27 CT abd/pelvis Impression: Somewhat masslike appearance of the GE junction region/gastric fundus is presumably related to recent fundoplication surgery. No wally bowel obstruction evident. Small bilateral pleural effusions with partial bilateral lower lobe atelectasis. Diffuse hepatic steatosis. Extensive soft tissue gas in the subcutaneous soft tissues is presumably postoperative in nature. (2) Diabetes: Qualifiers: Diabetes mellitus type: type 2 Diabetes mellitus mold filler plastic dolls insulin use: unspecified mold filler plastic dolls insulin use status Diabetes mellitus complication status: without complication Qualified Code(s): E11.9 - Type 2 diabetes mellitus without complications Code(s): E11.9 - Type 2 diabetes mellitus without complications Status: Chronic Assessment and Plan: Home medication: glimepiride 2 mg b.i.d., metformin 1000 mg b.i.d.- will hold while in the hospital. HgbA1c 9.1 Reports checking her blood sugar in the morning at home but doesn't always follow a diabetic diet well --Service Center Representative consult, consumer educator if still here on Friday. - POC blood glucose ACHS - correct regimen ordered - high dose TIDWM and HS, based off BMI --Added 6 units lantus yesterday, add 8 units daily, continue SSI--hold if needs to be NPO, but dosed low, add mealtime insulin if eating meals regularly - discussed that she would need a better glucose control once discharge. Recommended checking blood sugars twice a day at home instead of daily in the morning (3) GERD (gastroesophageal reflux disease): Qualifiers: Esophagitis presence: esophagitis presence not specified Qualified Code(s): K21.9 - Gastro-esophageal reflux disease without esophagitis Code(s): K21.9 - Gastro-esophageal reflux disease without esophagitis Status: Chronic Assessment and Plan: - continue daily pantoprazole 40 mg p.o. (4) HTN (hypertension): Qualifiers: Hypertension type: primary hypertension Qualified Code(s): I10 - Essential (primary) hypertension Code(s): I10 - Essential (primary) hypertension Status: Chronic Assessment and Plan: Blood pressure elevated in the setting of pain, 167/87 - continue home medications: Amlodipine 5 mg daily, benazepril (subbed to lisinopril) 40 mg daily. Added hydralazine 10 QID prn for SBP >160. Would avoid overtreating in the setting of acute pain --Pain control - monitor (5) Nausea: Code(s): R11.0 - Nausea Status: Acute Assessment and Plan: Zofran/compazine prn (6) Delirium: Code(s): R41.0 - Disorientation, unspecified Status: Acute Assessment and Plan: Oriented x2-3, cognitive impairment in the setting of pain and medications. Unclear if she is forgetful at baseline. --PT/OT, discharge recs --Delirium precautions (7) Weakness: Code(s): R53.1 - Weakness Status: Acute Assessment and Plan: Difficulty sitting due to pain. Needing a lot of assistance --PT/OT --May need short term rehab or SNF Plan Diet: Full liquids, advance per surgery GI Prophylaxis: Pantoprazole p.o. DVT Prophylaxis: Lovenox SQ Lines: Peripheral Code Status: Full code Time Spent With Patient Time: 64 minutes Subjective Date/time seen: 08/28/24 08:20 Interval history: Feels pain improved but still with generalized abdominal pain, bloating. No nausea or vomiting. Passing gas, no BM. CT yesterday showed likely post op changes but no evidence of infec
--- NOTE | 2024-08-28 09:36 | PCPTNOTE ---
Patient reports she is a 7/10 pain and does not feel up to therapy at this time. Patient reports she was just up. Will attempt at a later time.
[2024-08-28] MEDS: SODIUM CHLORIDE 0.9% IV 1,000 ML 80 ML IV CONT (10:19)
[2024-08-28] MEDS: oxyCODONE/ACETAMINOPHEN (*CRX) 5-325 MG TABLET 1 TABLET PO (10:20)
[2024-08-28] MEDS: INSULIN GLARGINE (*BKC) 100 UNITS/ML 8 UNITS SUB-Q (10:20)
--- NOTE | 2024-08-28 10:56 | WPDPN ---
Progress Note: A&P Assessment and Plan (1) Status post laparoscopic Alin fundoplication: Code(s): Z98.890 - Other specified postprocedural states Status: Acute Assessment and Plan: Postop day 2 after laparoscopic Alin fundoplication. She was a little bit weaker and unsteady yesterday with higher blood sugars. This was addressed by the hospitalist service. She feels better today and was up working with therapy. No issues eating her oatmeal. Will advance her to soft diet as tolerated. White blood cell count is normal today. No fever. If she continues do well then hopefully she can be discharged home tomorrow. (2) Diabetes: Qualifiers: Diabetes mellitus type: type 2 Diabetes mellitus penitentiary insulin use: unspecified penitentiary insulin use status Diabetes mellitus complication status: without complication Qualified Code(s): E11.9 - Type 2 diabetes mellitus without complications Code(s): E11.9 - Type 2 diabetes mellitus without complications Status: Chronic Subjective Date/time seen: 08/28/24 10:56 Interval history: Patient states she is better today. Tolerated oatmeal for breakfast. Passing flatus but no bowel movement yet. Blood sugar was in the 160s this morning. Being managed by the hospitalist service. She was able to sit up inside the bed with therapy today. Another session with therapy schedule for this afternoon. Exam GI: Other: Abdomen is obese but soft. Port site incisions are healing well without redness. There is some ecchymosis around to the port sites but no hematoma. Mild tenderness around the port site is expected. Objective Data Vital Signs Vital Signs: Vital Signs - 24 hr 08/27/24 14:29 08/27/24 13:58 08/27/24 18:51 Temperature 35.6 C L Pulse Rate 101 H Respiratory Rate 18 Blood Pressure 162/97 H 148/68 H Pulse Oximetry 90 Oxygen Delivery Room Air 08/28/24 06:06 08/28/24 09:05 Temperature 36.8 C Pulse Rate 97 Respiratory Rate 18 Blood Pressure 167/87 H Pulse Oximetry 90 Oxygen Delivery Room Air Intake/Output Intake/Output: Intake & Output 08/25/24 08/26/24 08/27/24 08/28/24 23:59 23:59 23:59 23:59 Intake Total 850 2800 400 240 Balance 850 2800 400 240 Meds/Results Medications: Active Medications Generic Name Dose Route Start Last Admin Trade Name Bryce PRN Reason Stop Dose Admin Acetaminophen 500 mg 08/25/24 12:43 08/27/24 20:06 Acetaminophen 500 Mg Tablet PO 500 mg Q6H PRN Administration Pain Rated 1-3 Alendronate Sodium 70 mg 08/27/24 09:00 08/27/24 15:27 Alendronate Sodium 70 Mg Tablet PO 70 mg Fr@0900 BOWEN Administration Amlodipine Besylate 5 mg 08/26/24 09:00 08/28/24 07:51 Amlodipine Besylate 5 Mg Tablet BY MOUTH 5 mg DAILY BOWEN Administration Dextrose 12.5 gm 08/25/24 12:43 Dextrose 50% 25 Gm/50 Ml Syringe IV PUSH PRN PRN Hypoglycemia Protocol Enoxaparin Sodium 40 mg 08/27/24 09:00 08/28/24 07:52 Enoxaparin 40 Mg/0.4 Ml Syringe SUB-Q 40 mg DAILY BOWEN Administration Fentanyl Citrate 12.5 mcg 08/27/24 14:04 Fentanyl Citrate Inj (*Crx) 100 Mcg/2 Ml Vial IV PUSH Q2H PRN Breakthrough Pain Rated 4-6 or NPO Fentanyl Citrate 25 mcg 08/27/24 14:04 Fentanyl Citrate Inj (*Crx) 100 Mcg/2 Ml Vial IV PUSH Q2H PRN Breakthrough Pain Rated 7-10 or NPO Glimepiride 2 mg 08/25/24 17:00 08/26/24 09:15 Glimepiride 2 Mg Tablet PO 2 mg BIDWM BOWEN Administration Glucagon 1 mg 08/25/24 12:43 Glucagon For Inj 1 Mg Vial IM PRN PRN Hypoglycemia Protocol Glucose 15 gm 08/25/24 12:43 Glucose Oral Gel 15 Gm Of Glucse In 37.5 Gm Tube PO PRN PRN Hypoglycemia Protocol Hydralazine HCl 10 mg 08/27/24 16:54 Hydralazine 10 Mg Tablet PO QID PRN Hypertension Ibuprofen 800 mg in 200 mls @ 400 mls/hr 08/25/24 12:43 Caldolor 800 Mg/200 Ml IVP
[2024-08-28 12:06] LABS: Glucose Point of Care 217 mg/dl (65-105)
[2024-08-28] MEDS: INSULIN ASPART (*BKC) 100 UNITS/ML SUB-Q (13:31)
[2024-08-28 16:50] LABS: Glucose Point of Care 169 mg/dl (65-105)
[2024-08-28 20:34] LABS: Glucose Point of Care 197 mg/dl (65-105)
[2024-08-28] MEDS: SENNA/DOCUSATE SODIUM TABLET 2 TAB PO (20:49)
[2024-08-28 21:25] VITALS: BP 156/72; PULSE 93; RESP 18; TEMP 37.7; O2SAT 93
[2024-08-29 05:31] LABS: Basophils Percent Auto 0.4 % (0.2-1.2); Eosinophils Percent Auto 0.4 % (0-4.4); Hematocrit 38.8 % (37.0-47.0); Hemoglobin 11.5 g/dL (12.0-15.0); Immature Granulocyte Absolute 0.05 K/mm3 (0.00-0.031); Immature Granulocyte Percent A 0.6 % (0-0.5); Lymphocytes Absolute Auto 1.71 K/mm3 (0.9-3.2); Lymphocytes Percent Auto 21.1 % (18.3-44.2); Mean Corpuscular HGB Conc 29.6 g/dl (32-36); Mean Corpuscular Hemoglobin 23.2 pg (26-34); Mean Corpuscular Volume 78.4 fl (80-100); Mean Platelet Volume 9.6 fl (7.4-10.4); Monocytes Absolute Auto 0.7 K/mm3 (0.1-0.6); Neutrophils Absolute Auto 5.7 K/mm3 (1.3-6.7); Neutrophils Percent Auto 69.5 % (45.5-73.1); Platelet Count Result 182 k/mm3 (150-375); Red Blood Count 4.95 M/mm3 (4.2-5.4); Red Cell Distribution Width 17.5 % (11.5-14.5); White Blood Count 8.1 K/mm3 (4.5-10.0)
[2024-08-29 05:41] VITALS: BP 149/65; PULSE 78; RESP 16; TEMP 36.8; O2SAT 98
[2024-08-29] MEDS: LEVOTHYROXINE SODIUM 25 MCG TABLET PO (05:41)
[2024-08-29 05:46] LABS: Alanine Aminotransferase 48 U/L (6-35); Albumin Level 3.6 g/dL (3.5-5.1); Alkaline Phosphatase 89 U/L (38-126); Anion Gap 7 mmol/L (4-12); Aspartate Amino Transferase 27 U/L (14-36); Bilirubin,Total 0.9 mg/dL (0.2-1.3); Blood Urea Nitrogen 8 mg/dL (7-17); Calcium 8.9 mg/dL (8.4-10.2); Carbon Dioxide 26 mmol/L (22-30); Chloride 100 mmol/L (98-107); Estimated CRCL calculation 101 ml/min; Estimated Glomerular Filt Rate > 60; Glucose 156 mg/dL (65-110); Potassium 3.6 mmol/L (3.4-5.0); Sodium 133 mmol/L (137-145)
[2024-08-29 05:59] LABS: Anisocytosis 2+; Hypochromasia 1+; Microcytosis 2+ (NORMAL); Platelet Estimate Adequate (Adequate)
[2024-08-29 06:00] LABS: Schistocytes None Seen
--- NOTE | 2024-08-29 07:55 | PM.IMPN ---
Progress Note: A&P Assessment and Plan (1) Hiatal hernia: Code(s): K44.9 - Diaphragmatic hernia without obstruction or gangrene Status: Chronic Assessment and Plan: Underwent a laparoscopic Alin fundoplication with hiatal hernia repair on 08/25/2024 with Bob BRAXTON - primary management through surgical team - analgesics and antipyretics p.r.n. --Treatment of pain: Morphine/Percocet prn --Treatment of nausea as noted 08/27 CT abd/pelvis Impression: Somewhat masslike appearance of the GE junction region/gastric fundus is presumably related to recent fundoplication surgery. No wally bowel obstruction evident. Small bilateral pleural effusions with partial bilateral lower lobe atelectasis. Diffuse hepatic steatosis. Extensive soft tissue gas in the subcutaneous soft tissues is presumably postoperative in nature. (2) Diabetes: Qualifiers: Diabetes mellitus complication status: without complication Diabetes mellitus halfway insulin use: unspecified halfway insulin use status Diabetes mellitus type: type 2 Qualified Code(s): E11.9 - Type 2 diabetes mellitus without complications Code(s): E11.9 - Type 2 diabetes mellitus without complications Status: Chronic Assessment and Plan: Home medication: glimepiride 2 mg b.i.d., metformin 1000 mg b.i.d.- will hold while in the hospital. HgbA1c 9.1 Reports checking her blood sugar in the morning at home but doesn't always follow a diabetic diet well --Customer Energy Specialist consult, family educator if still here on Friday. - POC blood glucose ACHS - correct regimen ordered - high dose TIDWM and HS, based off BMI --Added 6 units lantus 08/28, increased to 8 units daily 08/29 --Add lispro 2 units TID with meals, continue SSI - discussed that she would need a better glucose control once discharge. Recommended checking blood sugars twice a day at home instead of daily in the morning and following closely with PCP. Don't recommend increasing outpatient meds at discharge due to decreased intake. She does not have experience with insulin so would need teaching if that's required, but can likely add Jardiance or alternate medication at follow up (3) GERD (gastroesophageal reflux disease): Qualifiers: Esophagitis presence: esophagitis presence not specified Qualified Code(s): K21.9 - Gastro-esophageal reflux disease without esophagitis Code(s): K21.9 - Gastro-esophageal reflux disease without esophagitis Status: Chronic Assessment and Plan: - continue daily pantoprazole 40 mg p.o. (4) HTN (hypertension): Qualifiers: Hypertension type: primary hypertension Qualified Code(s): I10 - Essential (primary) hypertension Code(s): I10 - Essential (primary) hypertension Status: Chronic Assessment and Plan: Blood pressure elevated in the setting of pain, 167/87 - continue home medications: Amlodipine 5 mg daily, benazepril (subbed to lisinopril) 40 mg daily. Added hydralazine 10 QID prn for SBP >160. Would avoid overtreating in the setting of acute pain --Pain control - monitor (5) Nausea: Code(s): R11.0 - Nausea Status: Acute Assessment and Plan: Zofran/compazine prn (6) Delirium: Code(s): R41.0 - Disorientation, unspecified Status: Acute Assessment and Plan: Oriented x2-3, cognitive impairment in the setting of pain and medications. Unclear if she is forgetful at baseline. --PT/OT, discharge recs --Delirium precautions --Follow cognition (7) Weakness: Code(s): R53.1 - Weakness Status: Acute Assessment and Plan: Difficulty sitting due to pain. Has been needing assistance from therapy --PT/OT (8) Hyponatremia: Code(s): E87.1 - Hypo-osmolality and hyponatremia Status: Acute Assessment and Plan: Na 130 10/5, switched LR to NS Tolerating a diet, 131-135 Plan Diet: Full liquids, advance per surgery GI
[2024-08-29 08:02] LABS: Glucose Point of Care 160 mg/dl (65-105)
[2024-08-29] MEDS: SIMVASTATIN 20 MG TABLET 40 MG PO (09:06)
[2024-08-29] MEDS: ENOXAPARIN 40 MG/0.4 ML SYRINGE SUB-Q (09:06)
[2024-08-29] MEDS: lisinopriL 20 MG TABLET 40 MG PO (09:07)
[2024-08-29] MEDS: amLODIPine BESYLATE 5 MG TABLET BY MOUTH (09:07)
[2024-08-29] MEDS: PANTOPRAZOLE 40 MG TABLET PO (09:08)
[2024-08-29] MEDS: polyethylene glycoL 3350 17 GM POWD.PACK PO (09:08)
[2024-08-29] MEDS: INSULIN ASPART (*BKC) 100 UNITS/ML SUB-Q ×2 (09:08→12:59)
[2024-08-29] MEDS: oxyCODONE/ACETAMINOPHEN (*CRX) 5-325 MG TABLET 1 TABLET PO (09:09)
[2024-08-29] MEDS: INSULIN GLARGINE (*BKC) 100 UNITS/ML 8 UNITS SUB-Q (09:11)
--- NOTE | 2024-08-29 10:57 | WPDPN ---
Progress Note: A&P Assessment and Plan (1) Status post laparoscopic Alin fundoplication: Code(s): Z98.890 - Other specified postprocedural states Status: Acute Assessment and Plan: Postop day 4 after laparoscopic Alin fundoplication. She seems to be doing better today. She would like to go home today. Therapy since she only walk 20ft with minimal assist yesterday. If she is able to get up and walk further and do well with therapy and is okay to discharge from their standpoint I think she can go home today. Will give her a do o'clock suppository we can facilitate a bowel movement. She has not had 1 since her surgery and she has a bloated today. Subjective Date/time seen: 08/29/24 10:57 Interval history: Patient feels better today. Did tolerate small bite solid food. No bowel movement yet but feels a little bloated. No significant nausea. No dysphagia. Exam GI: Other: Abdomen is soft but moderately distended. Incisions are healing well with some ecchymosis. No redness around the incisions and no drainage. Patient does have some bowel sounds. Objective Data Vital Signs Vital Signs: Vital Signs - 24 hr 08/28/24 21:25 08/29/24 05:41 Temperature 37.7 C H 36.8 C Pulse Rate 93 78 Respiratory Rate 18 16 Blood Pressure 156/72 H 149/65 H Pulse Oximetry 93 98 Intake/Output Intake/Output: Intake & Output 08/26/24 08/27/24 08/28/24 08/29/24 23:59 23:59 23:59 23:59 Intake Total 2800 400 480 540 Balance 2800 400 480 540 Meds/Results Medications: Active Medications Generic Name Dose Route Start Last Admin Trade Name Freq PRN Reason Stop Dose Admin Acetaminophen 500 mg 08/25/24 12:43 08/27/24 20:06 Acetaminophen 500 Mg Tablet PO 500 mg Q6H PRN Administration Pain Rated 1-3 Alendronate Sodium 70 mg 08/27/24 09:00 08/27/24 15:27 Alendronate Sodium 70 Mg Tablet PO 70 mg Fr@0900 BOWEN Administration Amlodipine Besylate 5 mg 08/26/24 09:00 08/29/24 09:07 Amlodipine Besylate 5 Mg Tablet BY MOUTH 5 mg DAILY BOWEN Administration Dextrose 12.5 gm 08/25/24 12:43 Dextrose 50% 25 Gm/50 Ml Syringe IV PUSH PRN PRN Hypoglycemia Protocol Enoxaparin Sodium 40 mg 08/27/24 09:00 08/29/24 09:06 Enoxaparin 40 Mg/0.4 Ml Syringe SUB-Q 40 mg DAILY BOWEN Administration Fentanyl Citrate 12.5 mcg 08/27/24 14:04 Fentanyl Citrate Inj (*Crx) 100 Mcg/2 Ml Vial IV PUSH Q2H PRN Breakthrough Pain Rated 4-6 or NPO Fentanyl Citrate 25 mcg 08/27/24 14:04 Fentanyl Citrate Inj (*Crx) 100 Mcg/2 Ml Vial IV PUSH Q2H PRN Breakthrough Pain Rated 7-10 or NPO Glimepiride 2 mg 08/25/24 17:00 08/26/24 09:15 Glimepiride 2 Mg Tablet PO 2 mg BIDWM BOWEN Administration Glucagon 1 mg 08/25/24 12:43 Glucagon For Inj 1 Mg Vial IM PRN PRN Hypoglycemia Protocol Glucose 15 gm 08/25/24 12:43 Glucose Oral Gel 15 Gm Of Glucse In 37.5 Gm Tube PO PRN PRN Hypoglycemia Protocol Hydralazine HCl 10 mg 08/27/24 16:54 Hydralazine 10 Mg Tablet PO QID PRN Hypertension Ibuprofen 800 mg in 200 mls @ 400 mls/hr 08/25/24 12:43 Caldolor 800 Mg/200 Ml IVPB Q6H PRN Breakthrough Pain Rated 1-3 or NPO Dextrose 1,000 mls @ 100 mls/hr 08/25/24 12:43 Dextrose 5% 1,000 Ml IVPB PRN PRN Hypoglycemia Protocol Insulin Aspart 4 - 8 units 08/26/24 08:00 08/28/24 19:34 Insulin Aspart (*Bkc) 100 Units/Ml SUB-Q Not Given TID[facility] Protocol Insulin Aspart 2 - 4 units 08/25/24 21:00 08/28/24 20:49 Insulin Aspart (*Bkc) 100 Units/Ml SUB-Q Not Given HS BOWEN Protocol Insulin Aspart 2 units 08/29/24 08:00 08/29/24 09:08 Insulin Aspart (*Bkc) 100 Units/Ml SUB-Q 2 units TIDWM BOWEN Administration Insulin Glargine 8 units 08/28/24 09:00 08/29/24 09:11 Insulin Glargine (*Bkc) 100 Units/Ml SUB-Q 8 units DAILY BOWEN [facility]
--- NOTE | 2024-08-29 11:04 | PM.DS ---
DS: Admitting Diagnosis Discharge Date August 29, 2024 Admitting Diagnosis Gastroesophageal reflux disease refractory to medical management DS: Discharge Diagnosis Discharge Diagnosis (1) GERD (gastroesophageal reflux disease): Qualifiers: Esophagitis presence: esophagitis presence not specified Qualified Code(s): K21.9 - Gastro-esophageal reflux disease without esophagitis Code(s): K21.9 - Gastro-esophageal reflux disease without esophagitis Status: Chronic (2) Status post laparoscopic Alni fundoplication: Code(s): Z98.890 - Other specified postprocedural states Status: Acute DS: Summary Hospital Course Reason for hospitalization: Status post laparoscopic Alin fundoplication Hospital Course: Patient can [facility] on August 25, 2024 and underwent an uncomplicated laparoscopic Alin fundoplication by Dr. Rojas. Postsurgically she did well in recovery room and then was transferred to surgical floor for routine post care. She did well initially after surgery and tolerated clear liquids. The 2nd day after surgery had a little bit of nausea but was not having dysphagia. She was complaining of some back pain and her mentation and balancing to be a little bit impaired. White blood count remained normal. She had no fever no emesis. She did get a CT scan abdomen pelvis which was negative for any acute problems causing her symptoms. Was then advanced to full liquids after her nausea improved. Hospitalist service manage her blood sugars. On postoperative day 3. She was doing much better and was advanced to small bite solid food. She tolerated this well. Therapy worked with her and was getting her up and ambulating. On postop day 4. She wished to go home and seemed to be doing well enough from a surgery standpoint to go home if therapy feels that she can ambulate safely. Case management is involved in case she needs home physical therapy ordered. Her abdomen was soft and benign. Was low bloated and had not had a bowel movement since her surgery and so she was given a suppository the morning of her discharge. Status at Discharge Overall status at discharge: patient is progressing back to baseline Time Spent with Patient Time attestation: Total time spent providing and/or coordinating discharge services: Time spent: Less than 30 minutes Exam GI: Other: Abdomen is soft and mildly distended. Minimal tenderness around the port site incisions. Some ecchymosis but no hematoma. No redness or drainage. DS: Data Data Completed and Pending Labs on day of discharge: Labs from last 24 hours 10/06/24 10/06/24 10/05/24 07:58 05:08 20:29 WBC 8.1 RBC 4.95 Hgb 11.5 L Hct 38.8 MCV 78.4 L MCH 23.2 L MCHC 29.6 L RDW 17.5 H Plt Count 182 MPV 9.6 Immature Gran % (Auto) 0.6 H Neut % (Auto) 69.5 Lymph % (Auto) 21.1 Hinds % (Auto) 8.0 Eos % (Auto) 0.4 Baso % (Auto) 0.4 Lymph # (Auto) 1.71 Hinds # (Auto) 0.7 H Eos # (Auto) 0.0 Baso # (Auto) 0.0 Abs Immat Gran (auto) 0.05 H Absolute Neuts (auto) 5.7 Absolute Nucleated RBC 0.000 Nucleated RBC % 0.0 Platelet Estimate Adequate Hypochromasia 1+ Anisocytosis 2+ Microcytosis 2+ Schistocytes None seen Sodium 133 L Potassium 3.6 Chloride 100 Carbon Dioxide 26 Anion Gap 7 BUN 8 Creatinine 0.40 L Estim Creat Clear Calc 101 Estimated GFR > 60 Glucose 156 H POC Capillary Glucose 160 H 197 H Calcium 8.9 Total Bilirubin 0.9 AST 27 ALT 48 H Alkaline Phosphatase 89 Total Protein 7.0 Albumin 3.6 08/28/24 08/28/24 16:42 12:03 WBC RBC Hgb Hct MCV MCH MCHC RDW Plt Count MPV Immature Gran % (Auto) Neut % (Auto) Lymph % (Auto) Hinds % (Auto) Eos % (Auto) Baso % (Auto) Lymph # (Auto) Hinds # (Auto) Eos # (Auto) Baso # (Auto) Abs Immat Gran (aut
[2024-08-29 11:30] LABS: Glucose Point of Care 134 mg/dl (65-105)
[2024-08-29] MEDS: BISACODYL 10 MG SUPPOSITORY RECTAL (11:45)
--- NOTE | 2024-08-29 12:19 | PC.NURSE ---
RN informed by care coordination home health will be set up tomorrow. Pt stable and can ambulate with walker
--- NOTE | 2024-09-13 13:59 | PCCDE ---
09/13/24 Reached pt by phone since not seen during admission. Denies questions, states her glucose is doing really well . Not interested in OP DSMT/MNT at this time. JACOB.
== END 2024-08-29 13:17 | disposition home health service (06) | DRG 327 ==
LOC: ANHSURGERY 13:10 → ANH3MEDSUR 13:10
PROVIDERS: Nurse Practitioner Acute Care; Nurse Practitioner Family; Student in an Organized Health Care Education/Training Program; Admitting Provider Surgery; PCP Internal Medicine; Visit Provider Surgery
PROC: 0DV44ZZ Restriction of Esophagogastric Junction, Percutaneous Endoscopic Approach (ICD-10-PCS; CPT 43281; principal; 2024-08-25 07:30)
DX: K21.9 Gastro-esophageal reflux disease without esophagitis (principal); E87.1 Hypo-osmolality and hyponatremia; F05 Delirium due to known physiological condition; K44.9 Diaphragmatic hernia without obstruction or gangrene; T50.915A Adverse effect of multiple unspecified drugs, medicaments and biological substances, initial encounter; K76.0 Fatty (change of) liver, not elsewhere classified; E11.9 Type 2 diabetes mellitus without complications; M06.9 Rheumatoid arthritis, unspecified; E03.9 Hypothyroidism, unspecified; M19.90 Unspecified osteoarthritis, unspecified site; E78.5 Hyperlipidemia, unspecified; I10 Essential (primary) hypertension; K42.9 Umbilical hernia without obstruction or gangrene; Z96.642 Presence of left artificial hip joint; Z96.652 Presence of left artificial knee joint; Z90.710 Acquired absence of both cervix and uterus; Z79.84 Long term (current) use of oral hypoglycemic drugs; E66.9 Obesity, unspecified; Z68.32 Body mass index [BMI] 32.0-32.9, adult
CPT/HCPCS: 36415; 74177; 80048; 80053; 82948; 83036; 85025; 85027; 97110; 97161; 97165; 97530; A9270; J0690; J1100; J1171; J1650; J1815; J1885; J2003; J2250; J2270; J2405; J2704; J3010; J7030; J7120; Q9967

== ENCOUNTER 2025-02-13 13:20 | Emergency (ER) | payer MEDICARE, SELFPAY ==
--- NOTE | ~2025-02-13 | XR_ITS ---
HISTORY: injury this morning, lateral pain COMPARISON: None TECHNIQUE: 3 views of the left foot were performed FINDINGS: Significant degenerative disease is identified within the visualized left foot. Significant soft tissue swelling is identified within the forefoot. Vascular calcifications are also noted. Findings along the lateral base of the fifth metatarsal suggesting an acute fracture. Correlation wit h the point of maximal tenderness is suggested, as this finding is not distinctly present on all view s (possibly secondary to positioning). Moderate calcaneal spur is noted. IMPRESSION: Findings along the proximal lateral base of the fifth metatarsal suggesting an acute fra cture. Correlation with the point of maximal tenderness is suggested as this finding is not distinctly prese nt on all views (possibly secondary to positioning). Reviewed, dictated and finalized at location A. IMPRESSION: Findings along the proximal lateral base of the fifth metatarsal s uggesting an acute fracture. Correlation with the point of maximal tenderness is suggested as this finding i s not distinctly present on all views (possibly secondary to positioning).
--- OUTSIDE RECORDS SUMMARY | 2025-02-13 13:22 | XMS_ITS ---
Author Name Jc Gonsales Address [address] [place] [id number] Phone [phone] [facility] ice Address [address] [place] [address] Phone [phone] Care Team Providers Care Butting Saw Operator Name Role Phone Jc Gonsales Unavailable Tor Dash Unavailable [phone] Functional Status Mental Status Allergies and Intolerances Medications Problems Reason for Referral Past Medical History
--- OUTSIDE RECORDS SUMMARY | 2025-02-13 13:22 | XMS_ITS | Clinical Summary ---
Author Organization [facility] [address] Address [address] [place] [id number] Care Team Providers Care School Bus Monitor Name Role Phone Ivan Wilkes MD Primary Care Provider Allergies No known active allergies Medications alendronate (FOSAMAX) 70 mg tablet Take 1 tablet (70 mg total) by mouth once a week 4 Active amLODIPine-yaakov zepriL (LOTREL) 5-40 mg per capsule Take by mouth daily [address] (VOLTAREN) 75 mg EC tablet Take 1 tablet (75 mg total) by mouth 2 (two) times a day 4 Active ergocalciferol (VITAMIN D) 50,000 unit capsule TAKE 1 CAPSULE BY MOUTH ONCE MONTHLY 4 Active glimepiride (AMARYL) 2 mg tablet Take 1 tablet (2 mg total) by mouth 2 (two) times a day 3 Active levothyroxine (SYNTHROID) 25 mcg tablet 4 Active metFORMIN (GLUCOPHAGE) 500 mg tablet Take 1 tablet (500 mg total) by mouth 2 (two) times a day [address] (PROTONIX) 40 mg EC tablet Take 1 tablet (40 mg total) by mouth daily 4 Active trospium XR (SANCTURA XR) 60 mg capsule,extende d release 24hr Take by mouth daily 4 Active Rinvoq 15 mg tablet extended release 24 hr 4 Active predniSONE (DELTASONE) 5 mg tablet TAKE 3 TABS BY MOUTH EVERY MORNING FOR 1 WEEK, 2 TABS FOR 1 WEEK, 1 TAB FOR 1 WEEK THEN DISCONTINUE Active ferrous sulfate 325 mg (65 mg of elemental iron) tablet TAKE 1 TABLET BY MOUTH TWICE A DAY WITH A 500MG VITAMIN C Active simvastatin (ZOCOR) 20 mg tablet Take 1 tablet (20 mg total) by mouth daily Active Surgical History Surgery Date Site/Laterality Comments COLONOSCOPY UPPER GASTROINTESTINAL ENDOSCOPY TOE SURGERY Left HIP SURGERY Left KNEE SURGERY Left knee replacement CLAVICLE SURGERY Left HYSTERECTOMY Medical History Medical History Date Comments GERD (gastroesophageal reflux disease) Hypertension Type 2 diabetes mellitus (HCC) Hypothyroidism Kidney stone Hiatal hernia Social History Tobacco Use Types Packs/Day Years Used Date Smoking Tobacco: Former Cigarettes Q uit: 1970 Tobacco Cessation:Counseling Given: Not Answered Personal Safety Answer Date Recorded Have you ever been in or are you currently in a harmful physical or emotional relationship or is someone making you feel afraid or unsafe? 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 Gender Identity Not on file Sexual Orientation Not on file Obstetrics History Last Filed Vital Signs Vital Sign Reading Time Taken Comments Blood Pressure 163/80 02/26/2024 10:24 AM CDT Pulse 100 02/26/2024 10:24 AM CDT Temperature - - Respiratory Rate 18 02/26/2024 10:24 AM CDT Oxygen Saturation - - Inhaled Oxygen Concentration - - Weight 79.4 kg (175 lb) 02/26/2024 10:24 AM CDT Height 154.9 cm (5' 1 ) 02/26/2024 10:24 AM CDT Body Mass Index 33.07 02/26/2024 10:24 AM CDT Plan of Treatment Health Maintenance Due Date Last Done Comments Breast Cancer Screening-Mammogram 1954 Colon Cancer Screening-Colonoscopy 1954 Depression Screening 1954 Fall Risk Assessment 1954 Hepatitis C Screening 1954 Hepatitis B Screening 1972 Zoster Vaccine (1 of 2) 2004 Well Visit 65+ 2019 DTaP/Tdap/Td Vaccine (2 - Td or Tdap) 12/14/2023 12/14/2013 Covid-19 Vaccine (2023-2 5 season) 2024 09/18/2023, 09/06/2022, 04/19/2022, Additional history exists Influenza Vaccine (#1) 2024 , 08/21/2021, 08/14/2019 Osteoporosis Screening-Bone Density Scan 02/24/2025 02/24/2023 Pneumococcal vaccine 65+ Completed 09/07/2021, 11/2018 Insurance [facility] MEDICARE T MEDICARE Care Teams School Bus Monitor Relationship Specialty Start Date End Date Ivan Wilkes MD [address] [facility] [place] [address] PCP - General Internal Medicine 02/25/24
--- OUTSIDE RECORDS SUMMARY | 2025-02-13 13:22 | XMS_ITS | Referral Summary ---
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
--- OUTSIDE RECORDS SUMMARY | 2025-02-13 13:22 | XMS_ITS ---
Author Name Jc Gonsales Carmen Address [address] [place] [address] Phone [phone] Organization [facility] ice Address [address] [place] [address] Phone [phone] Care Team Providers Care Cement Finisher Apprentice Name Role Phone Jc Gonsales Unavailable Tor Dash Unavailable Functional Status No Results Mental Status No Results Allergies and Intolerances Name Onset Date Reaction Severity No Known Allergies (Allergy) FriAug 29 14:33:00 EDT 2021 Medications Medication Directions Start Date End Date aspirin 325 mg tablet 1 TABLET Oral 1 Ti me Daily Indication: blood thinner Continue taking *for 4 weeks FriSep 11 09:00:00 EDT 2021Sep 14 01:00:00 EDT 2021 polyethylene glycoL 3350 17 gram oral powder packet 1 packet POWDER IN PACKET (EA) Oral PRN 1 Time Daily Indication: Constipation FriSep 09 13:00:00 EDT 2021Sep 14:00:00 EDT 2021 amLODIPine 10 mg-benazepriL 40 mg capsule 1 capsule CAPSULE Oral 1 Time Daily Indication: HTN FriSep 10 09:00:00 EDT 2021Sep 14 01:00:00 EDT 2021 FeroSuL 325 mg (65 mg iron) tablet 1 tablet TABLET Oral 2 Times Daily Indication: Anemia FriSep 05 18:00:00 EDT 2021Sep 14 01:00:00 EDT 2021 amLODIPine 5 mg-benazepriL 40 mg capsule 1 capsule CAPSULE Oral 1 Time Daily Indication: HTN FriSep 05 18:00:00 EDT 2021Sep 09 16:49:00 EDT 2021 lactulose 20 gram/30 mL oral solution 30 ml SOLUTION, ORAL Oral 2 Times Daily Indication: Constipation FriSep 02 19:09:00 EDT 2021 TuSep 03 16:00:00 EDT 2021 Enema Disposable 19 gram-7 gram/118 mL 1 applicator ENEMA (ML) Rectal PRN 1 Time Daily Give if No relief from routine constipation medications FriSep 02 19:13:00 EDT 2021Sep 14 01:00:00 EDT 2021 levothyroxine 25 mcg tablet 1 tab TABLET Oral 1 Time Daily Indication: Dx:Hypothyroidism FriSep 02 19:15:00 EDT 2021Sep 14 01:00:00 EDT 2021 TUBErsoL 5 tub. unit/0.1 mL intradermal injection solution 0.1 ml VIAL (ML) Intradermal 1 Time Weekly for 2 Weeks Indication: TB Test 1st injection on admission, then one week after. Read between 48 and 72 hours FriAug 30 14:00:00 EDT 2021Sep 13 13:59:00 EDT 2021 TUBErsoL 5 tub. unit/0.1 mL intradermal injection solution Read Results VIAL (ML) Other 1 Time Weekly for 2 Weeks Indication: TB Test Read results between 48-72 hours after 1st and 2nd (1 week apart). If positive do chest x-ray. FriAug 30 14:00:00 EDT 2021Sep 13 13:59:00 EDT 2021 Stimulant Laxative Plus 8.6 mg-50 mg tablet 1 tablet TABLET Oral 2 Times Daily Indication: Constipation FriAug 30 16:00:00 EDT 2021Sep 14 01:00:00 EDT 2021 alendronate 70 mg tablet 1 tablet TABLET Oral 1 Time Weekly Indication: Osteoporosis FriSep 01 06:00:00 EDT 2021Sep 14 01:00:00 EDT 2021 amLODIPine 5 mg-benazepriL 40 mg capsule 1 capsule CAPSULE Oral 1 Time Daily Indication: HTN FriAug 29 14:00:00 EDT 2021Sep 05 10:46:00 EDT 2021 enoxaparin 40 mg/0.4 mL subcutaneous syringe 0.4mL SYRINGE (ML) Subcutaneous 1 Time Daily for 10 Days Indication: DVT proph FriAug 30 07:00:00 EDT 2021Sep 09 06:59:00 EDT 2021 ergocalciferol (vitamin D2) 1,250 mcg (50,000 unit) capsule 1 capsule CAPSULE Oral 1 Time Monthly Indication: Vitamin D deficiency FriAug 29 14:00:00 EDT 2021 Sat Oct 01:00:00 EDT 2021 ferrous sulfate 325 mg (65 mg iron) tablet 1 tablet TABLET Oral 2 Times Daily Indication: Anemia Anya Aug 29 14:00:00 EDT 2021 Anya Aug 13 10:46:00 EDT 2021 glimepiride 2 mg tablet 1 tablet TABLET Oral 2 Times Daily Indication: DM Anya Aug 29 14:00:00 EDT 2021 Sat Sep 14 01:00:00 EDT 2021 HYDROcodone 5 mg-acetaminophen 325 mg tablet 1 tablet TABLET Oral PRN Every 4 Hours Indication: Moderately Severe Pain Anya Aug 29 14:00:00 EDT 2021 Sat Oct 01:00:00 EDT 2021 Tradjenta 5 mg tablet 1 tablet TABLET Or al 1 Time Daily Indication: DM FriAug 29 15:00:00 EDT 2021 Sat Oct 01:00:00 EDT 2021 metFORMIN 500 mg tablet 1 tablet TABLET Oral 1 Time Daily Indication: DM FriAug 29 15:00:00 EDT 2021 Sat Oct 01:00:00 EDT 2021 pantoprazole 40 mg tablet,delayed release 1 tablet TABLET, DELAYED RELEASE (ENTERIC COATED) Oral 1 Time Daily Indication: GERD FriAug 29 15:00:00 EDT 2021 Sat Sep 14 01:00:00 EDT 2021 Gavilax 17 gram/dose oral powder 1 packet POWDER IN PACKET (EA) Oral PRN 1 Time Daily Indication: Constipation FriAug 29 15:00:00 EDT 2021Aug 30 14:45:00 EDT 2021 simvastatin 20 mg tablet 1 tablet TABLET Oral 1 Time Daily Indication: HLD FriAug 29 15:00:00 EDT 2021 Sat Sep 14 01:00:00 EDT 2021 polyethylene glycoL 3350 17 gram oral powder packet 1 packet POWDER IN PACKET (EA) Oral 1 Time Daily Indication: Constipation FriAug 29 18:00:00 EDT 2021 Mon Aug 17 16:47:00 EDT 2021 Vitamin C 500 mg tablet 1 tab TABLET Ora l 1 Time Daily Indication: supplement FriAug 30 01:00:00 EDT 2021 Sat Sep 14 01:00:00 EDT 2021 amlodipine 5 mg-atorvastatin 40 mg tablet 1 tablet Oral Continuous Indication: HTN Anya Oct 06 17:00:00 EDT 2021 Anya Oct 13 17:27:00 EDT 2021 ferrous sulfate 325 mg (65 mg iron) tablet,delayed release 1 tab Oral Continuous Indication: Anemia Anya Oct 06 17:00:00 EDT 2021u Oct 13 17:28:00 EDT 2021 ferrous sulfate 325 mg (65 mg iron) tablet,delayed release 1 Oral Continuous Indication: Anemia Anya Oct 06 17:00:00 EDT 2021u Oct 13 17:28:00 EDT 2021 amlodipine 5 mg-atorvastatin 40 mg tablet 1 Oral Continuous Indication: Anemia Anya Oct 06 17:00:00 EDT 2021 Anya Oct 13 17:29:00 EDT 2021 amlodipine 5 mg-atorvastatin 40 mg tablet 1 Oral Continuous Indication: HTN Anya Oct 06 17:00:00 EDT 2021u Oct 13 17:29:00 EDT 2021 ferrous sulfate 325 mg (65 mg iron) tablet,delayed release 1 Oral Continuous Indication: Anemia Anya Oct 06 17:00:00 EDT 2021u Oct 13 17:30:00 EDT 2021 amlodipine 5 mg-atorvastatin 40 mg tablet 1 Oral Continuous Indication: HTN Anya Oct 06 17:00:00 EDT 2021u Oct 13 17:31:00 EDT 2021 ferrous sulfate 325 mg (65 mg iron) tablet,delayed release 1 Oral Continuous Indication: Anemia Naya Oct 06 17:00:00 EDT 2021u Oct 13 17:32:00 EDT 2021 ferrous sulfate 325 mg (65 mg iron) tablet,delayed release 1 Oral Continuous Indication: Anemia Anya Oct 06 17:00:00 EDT 2021u Oct 13 17:33:00 EDT 2021 amlodipine 5 mg-atorvastatin 40 mg tablet 1 Oral Continuous Indication: HTN Anya Oct 06 17:00:00 EDT 2021 Anya Oct 13 17:33:00 EDT 2021 amlodipine 5 mg-atorvastatin 40 mg tablet 1 Oral Continuous Indication: HTN Anya Oct 06 17:00:00 EDT 2021u Oct 13 17:34:00 EDT 2021 ferrous sulfate 325 mg (65 mg iron) tablet,delayed release 1 Oral Continuous Indication: Anemia Anya Oct 06 17:00:00 EDT 2021u Oct 13 17:34:00 EDT 2021 ferrous sulfate 325 mg (65 mg iron) tablet,delayed release 1 Oral Continuous Indication: Anemia Anya Aug 29 17:00:00 EDT 2021 Anya Oct 13 17:35:00 EDT 2021 amlodipine 5 mg-atorvastatin 40 mg tablet 1 Oral Continuous Indication: HTN Anya Aug 06 17:00:00 EDT 2021 Anya Oct 13 17:36:00 EDT 2021 amlodipine 5 mg-atorvastatin 40 mg tablet 1 Oral Continuous Indication: HTN FriAug 29 17:00:00 EDT 2021 Anya Oct 13 17:36:00 EDT 2021 ferrous sulfate 325 mg (65 mg iron) tablet,delayed release 1 Oral Continuous Indication: Anemia Anya Aug 29 17:00:00 EDT 2021 Anya Oct 13 17:37:00 EDT 2021 amlodipine 5 mg-atorvastatin 40 mg tablet 1 Oral Continuous Indication: HTN FriAug 29 17:00:00 EDT 2021 Anya Oct 13 17:37:00 EDT 2021 ferrous sulfate 325 mg (65 mg iron) tablet,delayed release 1 Oral Continuous Indication: Anemia FriAug 29 17:00:00 EDT 2021 Anya Oct 13 17:37:00 EDT 2021 ferrous sulfate 325 mg (65 mg iron) tablet,delayed release 1 Oral Continuous Indication: Anemia FriAug 29 17:00:00 EDT 2021u Oct 13 17:38:00 EDT 2021 amlodipine 5 mg-atorvastatin 40 mg tablet 1 Sublingual Continuous Indication: Anemia FriAug 29 17:00:00 EDT 2021 Anya Oct 13 17:39:00 EDT 2021 Problems Active Concerns * Displaced intertrochanteric fracture of left femur, subsequent encounter for closed fracture with routine healing* Code: * Start Date: FriAug 29 00:00:00 EDT 2021 * End Date: * Text: * Fall on same level from slipping, tripping and stumbling without subsequent striking against object, subsequent encounter* Code: * Start Date: FriAug 29 00:00:00 EDT 2021 * End Date: * Text: * intermodal dispatcher (current) use of immunosuppressive biologic* Code: * Start Date: FriAug 29 00:00:00 EDT 2021 * End Date: * Text: * long-term (current) use of oral hypoglycemic drugs* Code: * Start Date: FriAug 29 00:00:00 EDT 2021 * End Date: * Text: * Rheumatoid arthritis, unspecified* Code: * Start Date: FriAug 29 00:00:00 EDT 2021 * End Date: * Text: * Presence of left artificial knee joint* Code: * Start Date: FriAug 29 00:00:00 EDT 2021 * End Date: * Text: * Essential (primary) hypertension* Code: * Start Date: FriAug 29 00:00:00 EDT 2021 * End Date: * Text: * Personal history of (healed) traumatic fracture* Code: * Start Date: FriAug 29 00:00:00 EDT 2021 * End Date: * Text: * Acquired absence of both cervix and uterus* Code: * Start Date: FriAug 29 00:00:00 EDT 2021 * End Date: * Text: * Hypothyroidism, unspecified* Code: * Start Date: FriAug 29 00:00:00 EDT 2021 * End Date: * Text: * Acute posthemorrhagic anemia* Code: * Start Date: FriAug 29 00:00:00 EDT 2021 * End Date: * Text: * Contusion of left thigh, subsequent encounter* Code: * Start Date: FriAug 29 00:00:00 EDT 2021 * End Date: * Text: * Type 2 diabetes mellitus with hyperglycemia* Code: * Start Date: FriAug 29 00:00:00 EDT 2021 * End Date: * Text: * Alcohol dependence, uncomplicated* Code: * Start Date: FriAug 29 00:00:00 EDT 2021 * End Date: * Text: * Gastro-esophageal reflux disease without esophagitis* Code: * Start Date: FriAug 29 00:00:00 EDT 2021 * End Date: * Text: * Slow transit constipation* Code: * Start Date: FriAug 29 00:00:00 EDT 2021 * End Date: * Text: * Drug induced constipation* Code: * Start Date: FriAug 29 00:00:00 EDT 2021 * End Date: * Text: * Adverse effect of other opioids, subsequent encounter* Code: * Start Date: FriAug 29 00:00:00 EDT 2021 * End Date: * Text: * Mixed hyperlipidemia* Code: * Start Date: FriAug 29 00:00:00 EDT 2021 * End Date: * Text: * Presence of other bone and tendon implants* Code: * Start Date: FriAug 29 00:00:00 EDT 2021 * End Date: * Text: * Vitamin D deficiency, unspecified* Code: * Start Date: FriAug 29 00:00:00 EDT 2021 * End Date: * Text: * Age-related osteoporosis without current pathological fracture* Code: * Start Date: FriAug 29 00:00:00 EDT 2021 * End Date: * Text: * Iron deficiency anemia, unspecified* Code: * Start Date: FriAug 29 00:00:00 EDT 2021 * End Date: * Text: Reason for Referral Past Medical History Resolved Concerns * Problem Hyperlipidemia, unspecified* Code: * Start Date: FriAug 29 00:00:00 EDT 2021 * End Date: FriSep 04 00:00:00 EDT 2021
--- OUTSIDE RECORDS SUMMARY | 2025-02-13 13:23 | XMS_ITS | Clinical Summary ---
Author Organization [facility] Address [address] [place] [address] Phone Care Team Providers Care Hardware Supplies Sales Representative Name Role Phone Ivan Wilkes MD Primary Care Provider [phone] Medications Abatacept (Orencia ClickJect) 125 MG/ML Solution Auto-injector Orencia ClickJect 125 mg/mL subcutaneous auto-injector Active Orencia ClickJect 125 MG/ML Solution Auto-injector 2 Active alendronate (FOSAMAX) 70 MG Tablet TAKE 1 TABLET BY MOUTH ONE TIME PER WEEK 2 Active amLODIPine Besy-Benazepril HCl 5-40 MG Capsule amlodipine 5 mg-benazepril 40 mg capsule Active ergocalciferol (VITAMIN D) 98849 UNIT Capsule TAKE 1 CAPSULE BY MOUTH ONCE MONTHLY 2 Active ferrous sulfate 325 (65 Fe) MG Tablet TAKE 1 TABLET BY MOUTH EVERY MORNING ALONG WITH A 500MG VITAMIN C & THEN 1 TAB IN THE EVENING 2 Active glimepiride (AMARYL) 2 MG Tablet Take 2 mg by mouth 2 times daily. 2 Active metFORMIN (GLUCOPHAGE) 500 MG Tablet metformin 500 mg tablet Active pantoprazole (PROTONIX) 40 MG Tablet Delayed Response pantoprazole 40 mg tablet,delayed release Active simvastatin (ZOCOR) 20 MG Tablet simvastatin 20 mg tablet TAKE 1 TABLET BY MOUTH EVERY DAY Active HYDROcodone-jean-claude taminophen (NORCO) 5-325 MG TabletIndicatio ns:Moderate to Moderately Severe Pain Take 1 Tablet by mouth every 4 hours as needed for Moderate or more severe pain. Indications: Moderate to Moderately Severe Pain 20 Tablet 2 Active polyethylene glycol (GLYCOLAX, MIRALAX) 17 g PackIndications :Constipation Take 1 Packet by mouth daily as needed for Constipation - 1st line. Dissolve in 4-8 oz of liquid. Indications: Constipation 90 Packet 2 Active Active Problems Problem Noted Date Diagnosed Date Alcoholism 08/26/2022 HLD (hyperlipidemia) 08/25/2022 Hypertension 08/25/2022 Diabetes mellitus 08/25/2022 RA (rheumatoid arthritis) 08/25/2022 Hypothyroid 08/25/2022 Closed displaced intertrochanteric fracture of l eft femur 08/25/2022 Intertrochanteric fracture o f left hip, closed, initial encounter 08/25/2022 Family History Medical History Relation Name Comments Cancer Daughter Diabetes Mother Hypertension Mother Stroke Mother Relation Name Status Comments Daughter Mother Social History Tobacco Use Types Packs/Day Years Used Date Smoking Tobacco: Never Smokeless Tobacco: Never Alcohol Use Standard Drinks/Week Comments Not Currently 0 (1 standard drink = 0.6 oz pur e alcohol) Comments Unknown Sex and Gender Information Value Date Recorded Sex Assigned at Not on file Legal Sex Female 5:05 AM CDT Gender Identity Not on file Sexual Orientation Not on file Last Filed Vital Signs Vital Sign Reading Time Taken Comments Blood Pressure 157/73 08/29/2022 8:41 AM CDT Pulse 111 08/29/2022 8:41 AM CDT Temperature 37 C (98.6 F) 08/29/2022 8:41 AM CDT Respiratory Rate 18 08/29/2022 8:41 AM CDT Oxygen Saturation 97% 08/29/2022 8:41 AM CDT Inhaled Oxygen Concentration - - Weight 74.8 kg (165 lb) 08/25/2022 10:38 AM CDT Height 154.9 cm (5' 1 ) 08/25/2022 10:38 AM CDT Body Mass Index 31.18 08/25/2022 10:38 AM CDT Plan of Treatment Health Maintenance Due Date Last Done Comments Diabetes: Eye Exam 1954 Diabetes: Foot Exam 1954 Hepatitis C Virus (HCV) Screening 1955 Colonoscopy 1999 Colorectal Cancer Screening 1999 Cologuard 2004 Immunochemical Fecal Occult Blood 2004 Zoster Immunization (1 of 2) 2004 Diabetes: Hemoglobin A1c 02/23/2023 08/25/2022 Diabetes: Nephropathy Screening 08/25/2023 08/25/2022, 08/25/2022 Influenza Immunization (#1) 07/25/202408/24, 08/21/2021, 08/14/2019 SARS-COV-2 Immunization ( season) 2024 04/19/2022, 11/07/2021, 01/26/2021, Additional history exists Respiratory Syncytial Virus (RSV) Immunization (Adult) (1 - 1-dose 75+ series) 2029 DTaP/Tdap/Td Immunization Discontinued 12/14/2013 TdaP Immunization Completed 12/14/2013 Pneumococcal Immunization (50+ years) Completed 09/07/2021, 09/24/2019 Hepatitis B Immunization Aged Out No longer eligible based on patient's age to complete this topic Meningococcal Immunization (ACWY) Aged Out No longer eligible based on patient's age to complete this topic Rotavirus Immunization Aged Out No lo nger eligible based on patient's age to complete this topic Medical Devices Implanted Type Area Rake Operator Device Identifier Shelf Expiration Date Model / Serial / Lot Screw Bone 5mm 40mm Ti Fthrd Lock Strl T2 Nail Sys Unv Sys - [id number] Implanted:Qty: 1 on 08/25/2022 by Stiven Huff MD at [facility] IMPLANT Left: Hip [employer] 01/21/2027 [id number] / [id number] / [id number] Screw Bone 10.5mm 85mm Gamma3 Ti Hip Trochanter Lag Strl - [id number] Implanted:Qty: 1 on 08/25/2022 by Stiven Huff MD at [facility] IMPLANT Left: Hip [employer] 11/23/2026 [id number] / [id number] / [id number] Nail 10mm 170mm Hip Trochanter Gamma3 Im 125d Ti Strl - [id number] Implanted:Qty: 1 on 08/25/2022 by Stiven Huff MD at [facility] IMPLANT Left: Hip [employer] 05/23/2026 [id number] / [id number] / [id number] Procedures Procedure Name Priority Date/Time Associated Diagnosis Comments CMP (COMPREHENSIVE METABOLIC PANEL) STAT 08/25/2022 11:00 AM CDT HEMOGLOBIN A1C W/ ESTIMATED GLUCOSE Routine 08/25/2022 11:00 AM CDT from Last 3 Months or Most Recently Relevant to Health Maintenance Results * (ABNORMAL) Hemoglobin A1C (if indicated) (08/25/2022 11:00 AM CDT) HGB-A1C 8.7(H) 4.0 - 6.0 % 08/25/2022 11:[address] [facility] Est Average Glucose 203.0 mg/dL 08/25/2022 11:[address] [facility] Blood Venipuncture / Unknown 08/25/2022 11:00 AM CDT 08/25/2022 11:[address] [facility] - 08/25/2022 11:28 AM CDT HEMOGLOBIN A1C: DIABETIC PATIENTS: WELL-CONTROLLED: 6.2 - 7.0 INTERMEDIATE WELL-CONTROLLED: 7.0 - 9.0 POORLY-CONTROLLED: >9.0 us Kari Luu [employer], DONOR SERVICES COORDINATOR CHEMISTRY ORDERABLES Fi nal Result [facility] [address] [place] [address] * (ABNORMAL) CMP (Comprehensive Metabolic Panel) (08/25/2022 11:00 AM CDT) SODIUM 133(L) 136 - 144 mmol/L 08/25/2022 11:[address] [facility] POTASSIUM 3.9 3.5 - 5.1 mmol/L 08/25/2022 11:27 AM CDT [facility] CHLORIDE 96(L) 100 - 110 mmol/L 08/25/2022 11:27 AM [facility] CO2, VENOUS 25 22 - 32 mmol/L 08/25/2022 11:27 AM [facility] ANION GAP 15.9 8.0 - 20.0 mmol/L 08/25/2022 11:27 AM [facility] GLUCOSE 221(H) 70 - 99 mg/dL 08/25/2022 11:27 AM [facility] BUN 7(L) 8 - 23 mg/dL 08/25/2022 11:27 AM [facility] CREATININE, BLOOD 0.42(L) 0.60 - 1.10 mg/dL 08/25/2022 11:27 AM [facility] BUN/CREATININE RATIO 17 12 - 20 ratio 08/25/2022 11:27 AM [facility] TOTAL PROTEIN 6.8 6.0 - 8.3 g/dL 08/25/2022 11:27 AM [facility] ALBUMIN 4.0 3.5 - 5.2 g/dL 08/25/2022 11:27 AM [facility] Comment: The colormetric methods used for the determination of Albumin may lead to falsely elevated test results in patients suffering from renal failure or insufficiency due to interference with other proteins. A/G RATIO 1.4 1.0 - 2.0 08/25/2022 11:27 AM [facility] CALCIUM 9.6 8.9 - 10.3 mg/dL 08/25/2022 11:27 AM [facility] T BILI 0.7 <=1.2 mg/dL 08/25/2022 11:27 AM [facility] SGOT (AST) 37(H) <=32 U/L 08/25/2022 11:27 AM [facility] SGPT (ALT) 53(H) <=41 U/L 08/25/2022 11:27 AM [facility] ALKALINE PHOSPHATASE 80 35 - 105 U/L 08/25/2022 11:27 AM CDT [facility] GFR, ESTIMATED >60 >=60 08/25/2022 11:27 AM CDT [facility] Comment: Creatinine Clearance is the preferred criteria for selecting drug dose adjustments in renally impaired patients. The GFR is provided as additional pertinent clinical information. GFR is reported in mL/min/1.73 sq m. Calculation based on the Chronic Kidney Disease Epidemiology Collaboration (CKD- EPI) equation refit without adjustment for race. GFR, EST. >60 >=60 022 11:27 AM CDT [facility] GFR, EST. NONAFRICAN >60 >=60 08/25/2022 11:27 AM CDT [facility] Blood Venipuncture / Unknown 08/25/2022 11:00 AM CDT 08/25/2022 11:07 AM CDT Stiven Huff MD CHEMISTRY ORDERABLES Final Resul t [facility] [address] [place] [address] from Last 3 Months or Most Recently Relevant to Health Maintenance Insurance MEDICARE C [employer] Advance Directives * Full Code (Latest Code Status on File) Date Activated Date Inactivated Comments 08/25/2022 11:11 AM 08/29/2022 3:46 PM CPR-Full Tr eatment: FULL ARREST: Attempt Resuscitation/CPR wit intubation and mechanical ventilation. PRE-ARREST: Use entire range of life support measures to stabilize the patient. Care Teams Hardware Supplies Sales Representative Relationship Specialty Start Date End Date Ivan Wilkes MD [address] [facility] [address] [place] [address] PCP - General Internal Medicine 08/25/22
--- OUTSIDE RECORDS SUMMARY | 2025-02-13 13:23 | XMS_ITS | Data Portability ---
Author Organization [place] [facility] [employer], Main Office Address [address] [place] [address] Care Team Providers Care International Accountant Name Role Phone MONA WILKES Primary Care Provider [phone] MONA WILKES Referring Provider [phone] WILY VICENTE Property Staff Accountant Assessment Encounter Date Assessment Date Assessment LastModified by Organization Details LastModified Time 07/10/2023 07/10/2023 Patient returns knee pain left greater than right. She had a total knee arthroplasty done many years ago and has done fairly well had a slight flare up of symptoms and I have done some conservative treatment consisting of therapy and anti-inflammato ry medication. This seemed to help with the pain is a bit better she remains somewhat symptomatic however and has not reached her treatment goals. I recommend she continue with exercises we will for prescription drug management will use Voltaren for pain and inflammation. This should help not only the left knee but also the right knee where she has arthritic. We discussed knee replacement surgery on the right but she is not ready at this point. star Not available 07/10/2023 09:45:03 Plan of Treatment Reminders Order Date Submit Date Provider Last Modified By Organization Details Last Modified Time Details Appointments None recorded. Lab vitamin D, 25-hydrox y, total, serum 024 [id number] [facility], [address], [address], 5 16:32:13 HbA1c (hemoglob in A1c), blood 024 024 [id number] [facility], [address], [address], 5 16:32:13 magnesium , serum or plasma 024 [id number] [facility], [address], [address], 5 16:32:13 vitamin B12, serum 024 [facility], [address], [address], 5 16:32:13 lipid panel, serum 024 [facility], [address], [address], 5 16:32:12 CMP, serum or plasma 024 [id number] [facility], [address], [address], 5 16:32:12 CBC w/ auto diff 024 [id number] [facility], [address], [address], 5 16:32:12 TSH, serum or plasma 024 [facility], [address], [address], 5 16:32:12 T4, free, serum 024 [facility], [address], [address], 5 16:32:13 HbA1c (hemoglob in A1c), blood 024 [id number] [facility], [address], [place], [address], 4 15:03:31 microalbu min/creat inine, mass ratio, urine [facility], [address], [place], [address], 4 15:03:31 vitamin B12, serum 024 [facility], [address], [place], [address], 4 15:03:31 magnesium , serum or plasma [facility], [address] [facility], [place], [address], 4 15:03:31 lipid panel, serum [id number] [facility], [address], [place], [address], 4 15:03:30 CMP, serum or plasma 024 [id number] [facility], [address] [facility] [address], [place], [address], 4 15:03:30 CBC w/ auto diff 024 [facility], [address] [facility] [address], [place], [address], 4 15:03:30 TSH, serum or plasma 024 [id number] [facility], [address] [facility] [address], [place], [address], 4 15:03:31 T4, free, serum 024 024 [id number] [facility], [address], [address], 4 15:03:31 HbA1c (hemoglob in A1c), blood 023 023 [id number] [facility], [address], [address], 3 15:54:26 microalbu min/creat inine, mass ratio, urine 023 023 [id number] [facility], [address], [address], 3 15:54:26 lipid panel, serum 023 023 [id number] [facility], [address], [address], 3 15:54:25 CMP, serum or plasma 023 023 [id number] [facility], [address], [address], 3 15:54:25 CBC w/ auto diff 023 023 [id number] [facility], [address], [address], 3 15:54:25 TSH, serum or plasma 023 023 [id number] [facility], [address], [address], 3 15:54:25 T4, free, serum 023 023 [id number] [facility], [address] [address], [place], [address], 15:54:26 Referral None recorded. Procedures None recorded. Surgeries None recorded. Imaging None recorded. Medication Orders None recorded. Patient TargetsNo targets recorded. Patient Instructions Encounter Date Encounter Id Patient Instructions Last Modified By Organization Details Last Modified Time 10/15/2023 [id number] Follow-up hypertension-hyperl ipidemia -hypothyroidism - type 2 diabetes -rheumatoid arthritis -obesity all clinically stable. Check blood work consisting of CBC, CMP PT, lipid, thyroid and hemoglobin A1c and microalbumin. Continue on current Rx and follow-up in four months. FDA recommendations of a influenza, RSV, COVID, pneumococcal immunizations strongly advised. Portions of the record may have been created with voice recognition software. Occasional wrong-word or s ound-a-like substitutions may have occurred due to the inherent limitations of voice recognition software. Read the chart carefully and recognize, using context, where substitutions have occurred. [email or web address] Not available 10/15/2023 15:38:35 03/03/2024 [id number] Follow-up hypertension, hyperlipidemia, type 2 diabetes, GERD, hypothyroidism and rheumatoid arthritis. Clinically stable at this time no interval complaints any new problems. Will check blood work consisting of CBC, CMP, lipid, thyroid, hemoglobin A1c, microalbumin, B12 and magnesium level. Continue on current Rx follow-up in four months. Mammogram Schedule Next Appointment: 4 Months Approximate Date: 07/01/2024 Portions of the record may have been created with voice recognition software. Occasional wrong-word or s ound-a-like substitutions may have occurred due to the inherent limitations of voice recognition software. Read the chart carefully and recognize, using context, where substitutions have occurred. [email or web address] Not available 03/03/2024 11:08:55 07/14/2024 [id number] dementia rating scale-2* [email or web address] Not available 07/14/2024 11:05:21 alcohol misuse* [email or web address] Not available 07/14/2024 11:05:20 depression screening* [email or web address] Not available 07/14/2024 11:05:21 Timed Up and Go test (TUG)* Not available 07/14/2024 11:05:21 multi-dimensiona l health assessment questionnaire* [email or web address] Not available 07/14/2024 11:05:20 Personalized a [facility] Plan and Screening Recommendations Advance Directives - Do you have one? No Advance Directives - Do we have your advance directive on file in your health record? Primary Prevention/Interven tion (prevents or decreases the chance of common diseases from occurring) Smoking Risk: Non Smoker Alcohol Misuse Screening: Negative Weight: Appropriate Overwei ght continue your current weight loss efforts try to lose 5% of your body weight try to lose 10% of your body weight Physical activity: Need more exercise/physical activity Nutrition: Good Average Fall Risk (screened today): Low Intermediate Vaccines Pneumococcal: Ordered Recommended today Recommended today, but you have declined No further needed Influenza: Your next one in the fall of this year Chronic Disease Risks Stroke: Low Risk Intermediate Risk I have no recommendations Act codie diagnosis, Continue current treatment plan Heart Attack: Low risk Intermediate Risk I have no recommendations Act codie diagnosis, Continue current treatment plan Clogging of the Arteries: Low risk Intermediate Risk I have no recommendations Act codie diagnosis, Continue current treatment plan Diabetes: Low Risk Intermediate Risk Active diagnosis, Continue current treatment plan Secondary Prevention/Interven tion (detects treatable diseases before they may cause symptoms, disability, or ) Breast Cancer Screening with mammogram: Your next mammogram: Ordered Recommended today Cervical/Uterine/Ov ervin Cancer Screening: No screening necessary Osteoporosis Screening: Date Screening Last Performed: Colon Cancer Screening: Colonoscopy Date Screening Last Performed: _2021__ Eye Disease Screening: Dementia Risk: Low I have no recommendations Depression Screening: Negative [email or web address] Not available 07/14/2024 10:55:01 Medicare wellnes s evaluation risk assessment stable. Follow-up for hypertension, hyperlipidemia, type 2 diabetes, GERD, rheumatoid arthritis and obesity class one. Clinically stable. Had recent blood work performed. Cholesterol profile suboptimal. Will increase the simvastatin from 20-40 mg daily. Instructed to let us know when she runs out of this and would like to switch over to atorvastatin 40 mg daily. Will also increase her metformin from 500 mg twice daily to 1 g twice daily. Needs to check her fasting blood sugars for the next few weeks and report back. May need to consider adding duct low seizures of insulin once daily. Scheduled for some abdominal surgery for umbilical hernias question whether not her hemoglobin A1c will prevent her from having this done at this juncture. Follow-up in four months Additional Orders - Directives - Recommendations 1. Mammogram Next Appointment: 4 Months Approximate Date: 11/11/2024 Portions of the record may have been created with voice recognition software. Occasional wrong-word or s ound-a-like substitutions may have occurred due to the inherent limitations of voice recognition software. Read the chart carefully and recognize, using context, where substitutions have occurred. [email or web address] Not available 07/14/2024 11:04:54 11/18/2024 [id number] Follow-up essent ial hypertension, hyperlipidemia, hypothyroidism, type 2 diabetes and rheumatoid arthritis all clinically stable. Will check a CMP, lipid, Vit D,B12, Magnesium and hemoglobin A1c level. Continue on current Rx follow-up in four months Follow Up: 4 Months Approximate Date: 03/18/2025 Portions of the record may have been created with voice recognition software. Occasional wrong-word or s ound-a-like substitutions may have occurred due to the inherent limitations of voice recognition software. Read the chart carefully and recognize, using context, where substitutions have occurred. Created: Mona Wilkes M.D. 11.18.2024 01:36 PM [email or web address] Not available 11/18/2024 14:36:23 Reason for Referral None Reported. Results Created Date Observation Date Name Description Value Unit Range Abnormal Flag Note LastModifiedBy Organization Detail LastModifiedTime 07/09/20 24 07/10/2024 LIPID PANEL , STAND TIN cholesterol, total 212 mg/dL <200 high Not Available [facility] [address] [place], [address], 07/10/2024 20:46:03 07/09/20 24 07/10/2024 LIPID PANEL , STAND TIN HDL cholesterol 57 mg/dL > or = 50 normal Not Available [facility] [address] [place], [address], 07/10/2024 20:46:03 07/09/20 24 07/10/2024 LIPID PANEL , STAND TIN triglyceride s 274 mg/dL <150 high If a non-f astin g speci men was colle cted, consi joseph repea t trigl yceri de testi ng on a fasti ng speci men if clini dilcia indic ated. Edmund menard et al. J. of Clin. Lipid ol. 2015; 9:129 -169. Not Available [facility] [employer] [facility] [address] [place], [address], 07/10/2024 20:46:03 07/09/20 24 07/10/2024 LIPID PANEL , STAND TIN LDL-choleste rol 116 mg/dL _(zach c) high Refer ence range : <100 Darleen able range <100 mg/dL for prima ry preve ntion ; <70 mg/dL for patie nts with CHD or diabe tic patie nts with > or = 2 CHD risk facto rs. LDL-C is now calcu lated using the Joanie n-Hop kins calcu latio n, which is a valid ated novel yonio clotilde provi gianni colby r accur acy than the Fried khalida equat ion in the estim ation of LDL-C . Joanie krishnamurthy SS et al. TAN. 2013; 310(1 9): 2061- 2068 (http ://ed ucati on.Guess Your Songs. com/f aq/FA Q164) Not Available [facility] [address] [address] , [place], [address], 07/10/2024 20:46:03 07/09/20 24 07/10/2024 LIPID PANEL , STAND TIN chol/HDLC ratio 3.7 (calc ) <5.0 normal Not Available [employer] [facility] [address] [place], [address], 07/10/2024 20:46:03 07/09/20 24 07/10/2024 LIPID PANEL , STAND TIN non HDL cholesterol 155 mg/dL _(zach c) <130 high For patie nts with diabe gordy plus 1 major ASCVD risk facto r, treat ing to a non-H DL-C goal of <100 mg/dL (LDL- C of <70 mg/dL ) is consi dered a thera peuti c optio n. Not Available [facility] [address] [place], [address], 07/10/2024 20:46:03 07/09/20 24 07/10/2024 ALBUM IN, RANDO M URINE W/CRE ATINI NE creatinine, random urine 60 mg/dL 20-275 normal Not Available [address] [address] [place], [address], 07/10/2024 20:46:04 07/09/20 24 07/10/2024 ALBUM IN, RANDO M URINE W/CRE ATINI NE albumin, urine 0.8 mg/dL see note: normal Refer ence Range : Refer ence Range Not estab lishe d Not Available [address] [address] [address], [place], [address], 07/10/2024 20:46:04 07/09/20 24 07/10/2024 ALBUM IN, RANDO M URINE W/CRE ATINI NE albumin/crea tinine ratio, random urine 13 mg/g_ creat <30 normal The ADA defin es abnor malit ies in album in excre tion as follo ws: Album inuri a Categ ory Resul t (mg/g creat inine ) Anusha l to Mildl y incre ased <30 Moder ately incre ased 30-29 9 Sever alfredo incre ased > OR = 300 The ADA recom mends that at least two of three speci mens colle cted withi n a 3-6 month perio d be abnor mal befor e consi mikki g a patie nt to be withi n a diagn ostic categ ory. Not Available [address] [address] [place], [address], 07/10/2024 20:46:04 07/09/20 24 07/10/2024 MAGNE SIUM magnesium 1.9 mg/dL 1.5-2. 5 normal Not Available [address] [address] [place], [address], 07/10/2024 20:46:04 07/09/20 24 07/10/2024 COMPR EHENS CODIE METAB OLIC PANEL glucose 91 mg/dL 65-99 normal Fasti ng refer ence inter amanda Not Available [address], [address], 07/10/2024 20:46:05 07/09/20 24 07/10/2024 COMPR EHENS CODIE METAB OLIC PANEL urea nitrogen (BUN) 9 mg/dL 7-25 normal Not Available [address], [address], 07/10/2024 20:46:05 07/09/20 24 07/10/2024 COMPR EHENS CODIE METAB OLIC PANEL creatinine 0.55 mg/dL 0.50-1 .05 normal Not Available [address], [address], 07/10/2024 20:46:05 07/09/20 24 07/10/2024 COMPR EHENS CODIE METAB OLIC PANEL eGFR 99 mL/mi n/1.7 3m2 > or = 60 normal Not Available [address], [address], 07/10/2024 20:46:05 07/09/20 24 07/10/2024 COMPR EHENS CODIE METAB OLIC PANEL BUN/creatini ne ratio SEE NOTE: (calc ) 6-22 Not Repor boris: BUN and Creat inine are withi n refer ence range . Not Available [address], [address], 07/10/2024 20:46:05 07/09/20 24 07/10/2024 COMPR EHENS CODIE METAB OLIC PANEL sodium 137 mmol/ L 135-14 6 normal Not Available [address], [address], 07/10/2024 20:46:05 07/09/20 24 07/10/2024 COMPR EHENS CODIE METAB OLIC PANEL potassium 3.6 mmol/ L 3.5-5. 3 normal Not Available [address], [address], 07/10/2024 20:46:05 07/09/20 24 07/10/2024 COMPR EHENS CODIE METAB OLIC PANEL chloride 100 mmol/ L 98-110 normal Not Available [address], [address], 07/10/2024 20:46:05 07/09/20 24 07/10/2024 COMPR EHENS CODIE METAB OLIC PANEL carbon dioxide 27 mmol/ L 20-32 normal Not Available [address], [address], 07/10/2024 20:46:05 07/09/20 24 07/10/2024 COMPR EHENS CODIE METAB OLIC PANEL calcium 9.8 mg/dL 8.6-10 .4 normal Not Available [address], [address], 07/10/2024 20:46:05 07/09/20 24 07/10/2024 COMPR EHENS CODIE METAB OLIC PANEL protein, total 6.7 g/dL 6.1-8. 1 normal Not Available [address], [address], 07/10/2024 20:46:05 07/09/20 24 07/10/2024 COMPR EHENS CODIE METAB OLIC PANEL albumin 4.1 g/dL 3.6-5. 1 normal Not Available [address], [address], 07/10/2024 20:46:05 07/09/20 24 07/10/2024 COMPR EHENS CODIE METAB OLIC PANEL globulin 2.6 g/dL_ (calc ) 1.9-3. 7 normal Not Available [address], [address], 07/10/2024 20:46:05 07/09/20 24 07/10/2024 COMPR EHENS CODIE METAB OLIC PANEL albumin/glob ulin ratio 1.6 (calc ) 1.0-2. 5 normal Not Available [address], [address], 07/10/2024 20:46:05 07/09/20 24 07/10/2024 COMPR EHENS CODIE METAB OLIC PANEL bilirubin, total 0.5 mg/dL 0.2-1. 2 normal Not Available [address], [address], 07/10/2024 20:46:05 07/09/20 24 07/10/2024 COMPR EHENS CODIE METAB OLIC PANEL alkaline phosphatase 72 U/L 37-153 normal Not Available [address], [address], 07/10/2024 20:46:05 07/09/20 24 07/10/2024 COMPR EHENS CODIE METAB OLIC PANEL AST 36 U/L 10-35 high Not Available [address], [address], 07/10/2024 20:46:05 07/09/20 24 07/10/2024 COMPR EHENS CODIE METAB OLIC PANEL ALT 51 U/L 6-29 high Not Available [address], [address], 07/10/2024 20:46:05 07/09/20 24 07/10/2024 CBC (INCL UDES DIFF/ PLT) white blood cell count 5.1 thous and/u L 3.8-10 .8 normal Not Available [address], [address], 07/10/2024 20:46:05 07/09/20 24 07/10/2024 CBC (INCL UDES DIFF/ PLT) red blood cell count 5.45 minerva on/uL 3.80-5 .10 high Not Available [address], [address], 07/10/2024 20:46:05 07/09/20 24 07/10/2024 CBC (INCL UDES DIFF/ PLT) hemoglobin 12.2 g/dL 11.7-1 5.5 normal Not Available [address], [address], 07/10/2024 20:46:05 07/09/20 24 07/10/2024 CBC (INCL UDES DIFF/ PLT) hematocrit 41.5 % 35.0-4 5.0 normal Not Available [address], [address], 07/10/2024 20:46:05 07/09/20 24 07/10/2024 CBC (INCL UDES DIFF/ PLT) MCV 76.1 fL 80.0-1 00.0 low Not Available [facility] [address], [address], 07/10/2024 20:46:05 07/09/20 24 07/10/2024 CBC (INCL UDES DIFF/ PLT) MCH 22.4 pg 27.0-3 3.0 low Not Available [facility] [address], [address], 07/10/2024 20:46:05 07/09/20 24 07/10/2024 CBC (INCL UDES DIFF/ PLT) MCHC 29.4 g/dL 32.0-3 6.0 low Not Available [employer] [facility] [address], [address], 07/10/2024 20:46:05 07/09/20 24 07/10/2024 CBC (INCL UDES DIFF/ PLT) RDW 15.5 % 11.0-1 5.0 high Not Available [address], [address], 07/10/2024 20:46:05 07/09/20 24 07/10/2024 CBC (INCL UDES DIFF/ PLT) platelet count 207 thous and/u L 140-40 0 normal Not Available [address], [address], 07/10/2024 20:46:05 07/09/20 24 07/10/2024 CBC (INCL UDES DIFF/ PLT) MPV 10.0 fL 7.5-12 .5 normal Not Available [address], [address], 07/10/2024 20:46:05 07/09/20 24 07/10/2024 CBC (INCL UDES DIFF/ PLT) absolute neutrophils 2004 cells /uL 1500-7 800 normal Not Available [address], [address], 07/10/2024 20:46:05 07/09/20 24 07/10/2024 CBC (INCL UDES DIFF/ PLT) absolute lymphocytes 2632 cells /uL 850-39 00 normal Not Available [address], [address], 07/10/2024 20:46:05 07/09/20 24 07/10/2024 CBC (INCL UDES DIFF/ PLT) absolute monocytes 383 cells /uL 200-95 0 normal Not Available [address], [address], 07/10/2024 20:46:05 07/09/20 24 07/10/2024 CBC (INCL UDES DIFF/ PLT) absolute eosinophils 51 cells /uL 15-500 normal Not Available [address], [address], 07/10/2024 20:46:05 07/09/20 24 07/10/2024 CBC (INCL UDES DIFF/ PLT) absolute basophils 31 cells /uL 0-200 normal Not Available [address], [address], 07/10/2024 20:46:05 07/09/20 24 07/10/2024 CBC (INCL UDES DIFF/ PLT) neutrophils 39.3 % normal Not Available [address], [address], 07/10/2024 20:46:05 07/09/20 24 07/10/2024 CBC (INCL UDES DIFF/ PLT) lymphocytes 51.6 % normal Not Available [address], [address], 07/10/2024 20:46:05 07/09/20 24 07/10/2024 CBC (INCL UDES DIFF/ PLT) monocytes 7.5 % normal Not Available [address], [address], 07/10/2024 20:46:05 07/09/20 24 07/10/2024 CBC (INCL UDES DIFF/ PLT) eosinophils 1.0 % normal Not Available [address], [address], 07/10/2024 20:46:05 07/09/20 24 07/10/2024 CBC (INCL UDES DIFF/ PLT) basophils 0.6 % normal Not Available [facility] [address], [address], 07/10/2024 20:46:05 07/09/20 24 07/10/2024 T4, FREE T4, free 1.0 NG/dL 0.8-1. 8 normal Not Available [address], [address], 07/10/2024 20:46:06 07/09/20 24 07/10/2024 TSH TSH 9.44 mIU/L 0.40-4 .50 high Not Available [facility] [address] [place], [address], 07/10/2024 20:46:06 07/09/20 24 07/10/2024 VITAM IN B12 vitamin B12 276 pg/mL 200-11 00 normal Pleas e Note: Altho ugh the refer ence range for vitam in B12 is 200-1 100 pg/mL , it has been repor boris that betwe en 5 and 10% of patie nts with value s betwe en 200 and 400 pg/mL may exper ience neuro psych iatri c and hemat ologi c abnor malit ies due to occul t B12 defic iency ; less than 1% of patie nts with value s above 400 pg/mL will have sympt oms. Not Available [facility] [address] [place], [address], 07/10/2024 20:46:06 07/09/20 24 07/10/2024 HEMOG LOBIN A1C hemoglobin A1C 9.8 %_of_ total _HGB <5.7 high For someo ne witho ut known diabe gordy, a hemog lobin A1c value of 6.5% or great er indic ates that they may have diabe gordy and this shoul d be confi rmed with a follo w-up test. For someo ne with known diabe gordy, a value <7% indic ates that their diabe gordy is well contr olled and a value great er than or equal to 7% indic ates subop timal contr ol. A1c targe ts shoul d be indiv idual ized based on durat ion of diabe gordy, age, comor bid condi tions , and other consi derat ions. Curre ntly, no conse nsus exist s regar ding use of hemog lobin A1c for diagn osis of diabe gordy for child linus. This test was perfo rmed on the [facility] r[facility]ny c503 platf orm. Effec tive , deondre so in test platf orms from the [facility] t[facility] to the [facility] ronny c503 may have shift ed HbA1c resul ts maría red to histo rical resul ts. Based on labor atory valid ation testi ng condu cted at [facility] , the [facility] platf orm relat codie to the [facility] platf orm had an avera ge incre ase in HbA1c value of < or = 0.3%. This diffe rence is withi n accep boris varia bilit y estab lishe d by the [facility] [facility] [employer] hemog lobin Stand ardiz ation Progr am. Note that not all indiv idual s will have had a shift in their resul ts and direc t maría rison s betwe en histo rical and curre nt resul ts for testi ng condu cted on diffe rent platf orms is not recom pierce d. Not Available [facility] [address] [place], [address], 07/10/2024 20:46:07 06/09/20 23 XR, knee No observ ation record ed. [email or web address] [facility] [address] [facility] [address], [place], [address], 06/09/2023 10:43:11 12/31/19 24 12/31/2023 CT, abdom en, w/o contr ast No observ ation record ed. [address], [place], [address], 12/31/2023 10:25:12 03/30/20 24 03/30/2024 NM, hepat obili keaton scan No observ ation record ed. [id number] [facility] [address], [place], [address], 03/30/2024 16:27:43 04/08/20 24 04/08/2024 US, abdom en No observ ation record ed. [email or web address] [address], [place], [address], 04/09/2024 15:17:55 04/21/20 24 04/21/2024 sonal yang ow study No observ ation record ed. [address] [address], [place], [address], 04/21/2024 12:30:01 06/07/20 24 06/07/2024 XR, chest , 2 view No observ ation record ed. [address] [address], [place], [address], 06/07/2024 14:09:54 07/16/20 24 06/07/2024 elect rocar diogr am No observ ation record ed. [email or web address] [address], [place], [address], 07/16/2024 16:35:44 07/20/20 24 07/19/2024 elect rocar diogr am No observ ation record ed. [email or web address] Not Available 2023 13:00:50 07/27/20 24 07/27/2024 pharm acolo gic nucle ar stres s test No observ ation record ed. [address] [address], [place], [address], 07/27/2024 11:22:36 07/27/20 24 07/27/2024 pharm acolo gic nucle ar stres s test No observ ation record ed. [address] [address], [place], [address], 07/27/2024 14:04:24 08/03/20 24 07/19/2024 elect rocar diogr am No observ ation record ed. Not Available 2023 13:54:21 08/27/20 24 08/27/2024 CT, abdom en + pelvi s, w/o contr ast No observ ation record ed. [address], [address], 08/27/2024 13:24:17 Result Notes None recorded. Problems Name Problem SNOMED Code Status Onset Date Resolution Date Notes Provider Name and Address Organization Details Recorded Time Disorder of connectiv e tissue 087429671 Completed 201803/23/2019 Not Available [facility] 3 05:58:00 Paronychi a of toe of left foot 66933798229 952728 Active 2018 Not Available [facility] 3 05:58:00 Pes anserinus bursitis of left knee 34796964646 30152 Active 2021 Not Available [facility] 3 05:58:00 History of left total knee replaceme nt 03471845439 45561 Active 2021 Not Available [facility] 3 05:58:00 Hyperchol esterolem ia 36323972 Active Not Available [facility] 3 05:58:01 Senile osteoporo sis 32528119 Active 2021 Not Available [facility] 3 05:58:01 Radiother apy follow-up 755780110 Active Not Available [facility] 3 05:58:01 Osteophyt e of bone 06784295420 9100 Active 2017 Not Available [facility] 3 05:58:01 Gastroeso phageal reflux disease 709275211 Active Not Available [facility] 3 05:58:01 Osteoarth ritis of knee 878444255 Active Not Available [facility] 3 05:58:01 Uterine prolapse 06523219 Completed Not Available [facility] 3 05:58:01 Anemia 115895696 Active 2021 Not Available [facility] 3 05:58:01 Adhesive capsuliti s of right shoulder 31743547716 9109 Active 2019 Not Available [facility] 3 05:58:01 Current tear of medial cartilage AND/OR meniscus of knee Active Not Available [facility] 3 05:58:01 Knee pain Active Not Available [facility] 3 05:58:01 Pain in left foot 67721483375 9107 Active 2017 Not Available [facility] 3 05:58:01 Osteoarth ritis of right knee joint 00600436704 9100 Active 2021 Not Available [facility] 3 05:58:01 Closed fracture of lateral malleolus 12620104 Active Not Available [facility] 3 05:58:02 Multiple joint pain 53940100 Completed 201703/23/2019 Not Available [facility] 3 05:58:02 Closed fracture of hip 893754994 Active 2021 Not Available [facility] 3 05:58:02 Rheumatoi d aortitis 78653391 Completed 201803/23/2019 Not Available [facility] 3 05:58:02 Osteoarth ritis 302089246 Active Not Available [facility] 3 05:58:02 Onychomyc osis of toenails 968102731 Active 2018 Not Available [facility] 3 05:58:02 Hypothyro idism 81500753 Active Not Available [facility] 3 05:58:02 Type 2 diabetes mellitus 77561146 Active Not Available [facility] 3 05:58:02 Essential hypertens ion 63919116 Active 2021 Not Available [facility] 3 05:58:02 Derangeme nt of knee 50006400 Active Not Available [facility] 3 05:58:02 Acquired hallux rigidus 8022514 Active 2017 Not Available [facility] 3 05:58:02 Rheumatoi d arthritis 21667199 Active 2018 Not Available [facility] 3 05:58:03 Celluliti s of toe 22794306 Active Not Available [facility] 3 05:58:03 Second degree uterine prolapse 6620631 Completed Not Available [facility] 3 05:58:03 Kidney stone 56626709 Active 2021 Not Available [facility] 3 05:58:03 Obesity 306634590 Active 2022 Mona Wilkes MD [address], [address], [place], [address] , [facility] [employer] [facility] 3 11:12:14 Mammograp hy abnormal 011301556 Active 2022 Justa LlamasDINO null, [place] [facility] 3 15:27:48 Osteoporo sis 17125779 Active 2022 Justa Llamas CMA null, [facility] 3 16:48:22 Obese class I 23784338434 4107 Active 2022 Mona Wilkes MD [address], [address], [place], [address] , [facility] [employer] [facility] [employer] [facility] 3 15:36:05 Hyperlipi demia 34224411 Active 2023 Justa Llamas DINO null, [facility] [employer] [facility] 4 12:35:03 Vitamin D deficienc y 57604164 Active 2023 Mona Wilkes MD [address], [address], [place], [address] , [facility] [employer] [facility] 4 14:34:57 Notes:wears glasses Some pro blems listed in Document: #[id number] could not be added to this patient's chart. Please review this document and add these problems to the patient's chart manually as needed. Problem Notes None recorded. Procedures Surgical History Date Name Laterality Status Provider Name and Address Organization Details Recorded Time 4 Medicare Wellness CPT Code, subsequent completed Julieta Art RN [facility] [employer] [facility] 07/14/2024 10:47:54 3 Medicare Wellness CPT Code, subsequent completed Julieta Art RN [facility] [employer] [facility] 06/04/2023 11:03:18 Imaging Results Imaging Date Name Status LastModified by Organization Details LastModified Time 06/09/2023 XR, knee completed [facility] [place] [address], [place], [address], 06/09/2023 10:43:11 12/31/2023 CT, abdomen, w/o contrast completed [address] [address], [place], [address], 12/31/2023 10:25:12 03/30/2024 NM, hepatobiliary scan completed [address] [address], [place], [address], 03/30/2024 16:27:43 04/08/2024 US, abdomen completed [address] [address], [place], [address], 04/09/2024 15:17:55 04/21/2024 barium swallow study completed [address], [address], 04/21/2024 12:30:01 06/07/2024 XR, chest, 2 view completed [address], [address], 06/07/2024 14:09:54 06/07/2024 electrocardiogram completed [address] [address], [place], [address], 07/16/2024 16:35:44 07/19/2024 electrocardiogram completed [address] [address] Informa tion not available 07/20/2024 13:00:50 07/27/2024 pharmacologic nuclear stress test completed [address], [address], 07/27/2024 11:22:36 07/27/2024 pharmacologic nuclear stress test completed [address], [address], 07/27/2024 14:04:24 07/19/2024 electrocardiogram [place] [address] [address] Informa tion not available 08/03/2024 13:54:21 08/27/2024 CT, abdomen + pelvis, w/o contrast completed [address], [place], [address], 08/27/2024 13:24:17 Procedure Notes None recorded. Medical Equipment None Reported. Medications Name Sig Start Date Stop Date Status Note LastModified by Organization Details LastModified Time amoxicillin 500 mg capsule Take 1 capsule 3 times a day by oral route for 10 days. 11/25 completed Not Available Not Available Not Available metformin 500 mg tablet TAKE 1 TABLET BY MOUTH TWICE A DAY active Not Available Not Available No t Available prednisone 10 mg tablet TAKE 1 TAB BY MOUTH 3 TIMES DAILY X 3 DAYS, 1 TAB TWICE DAILY X 2 DAYS, 1 TAB ONCE X 1 DAY active Not Available Not Available No t Available Vitamin C 500 mg tablet TAKE 1 TABLET BY MOUTH EVERY DAY active Not Available Not Available No t Available hydrocodone 5 mg-acetamin ophen 325 mg tablet TAKE 1 TABLET BY MOUTH EVERY 6 HOURS NEEDED FOR PAIN 10/14 completed Not Available Not Available Not Available meloxicam 15 mg tablet Take 1 tablet every day by oral route as needed for 90 days. 11/28 completed Not Available Not Available Not Available prednisone 20 mg tablet TAKE 3 TABLETS BY MOUTH ONCE DAILY FOR 5 DAYS 10/14 completed Not Available Not Available Not Available alendronate 70 mg tablet TAKE 1 TABLET BY MOUTH ONE TIME PER WEEK 2024 active Not Available Not Available Not Avai lable prednisone 5 mg tablet TAKE 3 TABLETS BY MOUTH EVERY DAY IN THE MORNING active Not Available Not Available No t Available Zithromax Z-Torrey 250 mg tablet TAKE 2 TABLETS (500 MG) BY ORAL ROUTE ONCE DAILY FOR 1 DAY THEN 1 TABLET (250 MG) BY ORAL ROUTE ONCE DAILY FOR 4 DAYS 09/24 completed Not Available Not Available Not Available Nexium 40 mg capsule,del ayed release Take 1 capsule every day by oral route. active Not Available Not Available No t Available acetaminoph en 300 mg-codeine 30 mg tablet TAKE 1 TABLET BY MOUTH EVERY 6 HOURS NEEDED FOR PAIN 08/17 completed Not Available Not Available Not Available sulfamethox azole 800 mg-trimetho prim 160 mg tablet TAKE 1 TABLET BY MOUTH TWICE A DAY 02/05 completed Not Available Not Available Not Available leflunomide 20 mg tablet TAKE 1 TABLET BY MOUTH EVERY DAY IN THE MORNING 07/25 completed Not Available Not Available Not Available acetaminoph en 500 mg tablet TAKE 1 TABLET BY MOUTH EVERY 6 HOURS NEEDED FOR FEVER OR PAIN active Not Available Not Available No t Available simvastatin 40 mg tablet TAKE 1 TABLET BY MOUTH EVERY DAY 2024 active Not Available Not Available Not Avai lable glimepiride 2 mg tablet TAKE 1 TABLET BY MOUTH TWICE A DAY 2024 active Not Available Not Available Not Avai lable levothyroxi ne 25 mcg tablet TAKE 1 TABLET BY MOUTH EVERY DAY active Not Available Not Available No t Available levothyroxi ne 75 mcg tablet TAKE 1 TABLET BY MOUTH ONCE DAILY 02/28 completed Not Available Not Available Not Available prednisone 10 mg tablets in a dose pack Take 1 tab by mouth, 3 times a day for 3 daysTake 1 tab by mouth 2 times a day for 2 daysTake 1 tab by mouth once a day for 1 day 10/14 completed Not Available Not Available Not Available oxycodone-a cetaminophe n 5 mg-325 mg tablet TAKE 1-2 TABLETS BY MOUTH EVERY 4-6 HOURS NEEDED FOR PAIN 02/05 completed Not Available Not Available Not Available lancets one touch verio lancets test blood sugars daily active Not Available Not Available No t Available amoxicillin 875 mg tablet TAKE 1 TABLET BY MOUTH EVERY 12 HOURS FOR 10 DAYS 08/17 completed Not Available Not Available Not Available methocarbam ol 750 mg tablet TAKE 1 TABLET BY MOUTH 3 TIMES A DAY NEEDED 10/14 completed Not Available Not Available Not Available methotrexat e sodium 2.5 mg tablet TAKE 3 TABLETS BY MOUTH ONCE WEEKLY 07/25 completed Not Available Not Available Not Available tamsulosin 0.4 mg capsule TAKE 1 CAPSULE BY MOUTH EVERY DAY 10/14 completed Not Available Not Available Not Available prednisone 1 mg tablet PLEASE SEE ATTACHED FOR DETAILED DIRECTION S active Not Available Not Available No t Available Kenalog 10 mg/mL suspension for injection In office injection administe red by the provider 10/14 completed [facility]: [phone]- [phone] Not Available Not Available Not Available hydrocodone 7.5 mg-acetamin ophen 325 mg tablet TAKE 1 TABLET BY MOUTH EVERY 8 HOURS NEEDED FOR PAIN 02/05 completed Not Available Not Available Not Available cephalexin 500 mg capsule TAKE 1 CAPSULE BY MOUTH THREE TIMES A DAY 07/25 completed Not Available Not Available Not Available pantoprazol e 40 mg tablet,avelino yed release TAKE 1 TABLET BY MOUTH EVERY DAY active Not Available Not Available No t Available simvastatin 20 mg tablet TAKE 1 TABLET BY MOUTH EVERY DAY 07/14 completed Not Available Not Available Not Available ferrous sulfate 325 mg (65 mg iron) tablet TAKE 1 TABLET BY MOUTH TWICE A DAY WITH A 500MG VITAMIN C active Not Available Not Available No t Available metformin 1,000 mg tablet TAKE 1 TABLET BY MOUTH TWICE A DAY active Not Available Not Available No t Available nitrofurant oin macrocrysta l 100 mg capsule TAKE 1 CAPSULE BY MOUTH EVERY 12 HOURS 02/05 completed Not Available Not Available Not Available ibuprofen 400 mg tablet TAKE 1 TABLET BY MOUTH 3 TIMES A DAY NEEDED FOR FEVER OR PAIN FOR 10 DAYS 03/03 completed Not Available Not Available Not Available Xylocaine 20 mg/mL (2 %) injection solution Take 40 mg by injection route. 10/14 completed Not Available Not Available Not Available gabapentin 300 mg capsule Take 1 capsule 3 times a day by oral route. 09/24 completed Not Available Not Available Not Available omeprazole 20 mg capsule,del ayed release Take 1 capsule every day by oral route. 02/28 completed Not Available Not Available Not Available diclofenac sodium 75 mg tablet,avelino yed release TAKE 1 TABLET BY MOUTH TWICE A DAY 03/03 completed Not Available Not Available Not Available folic acid 1 mg tablet TAKE 1 TABLET BY MOUTH EVERY MORNING 03/03 completed Not Available Not Available Not Available Levaquin 500 mg tablet Take 1 tablet every 24 hours by oral route. active Not Available Not Available No t Available ergocalcife rol (vitamin D2) 1,250 mcg (50,000 unit) capsule TAKE 1 CAPSULE BY MOUTH ONCE MONTHLY active Not Available Not Available No t Available methylpredn isolone 4 mg tablets in a dose pack As Directed 05/06 completed Not Available Not Available Not Available ketoconazol e 2 % topical cream APPLY TO THE AFFECTED AREA(S) of nail BY TOPICAL ROUTE twice DAILY active Not Available Not Available No t Available oxycodone 5 mg tablet TAKE 1 TABLET ORALLY EVERY 6 HOURS NEEDED FOR PAIN active Not Available Not Available No t Available Mucinex 600 mg tablet, extended release Take 1 tablet every 12 hours by oral route. active Not Available Not Available No t Available Enbrel 50 mg/mL (1 mL) subcutaneou s syringe Inject 1 mL every week by subcutane ous route. 05/30 completed Not Available Not Available Not Available Calcium 500 + D 2015 active Not Available Not Available Not Avai lable amlodipine 5 mg-benazepr il 40 mg capsule TAKE 1 CAPSULE BY MOUTH EVERY DAY active Not Available Not Available No t Available lidocaine (PF) 10 mg/mL (1 %) injection solution In office injection administe red by the provider 12/05 completed [facility]: 0409- [phone]- [phone] Not Available Not Available Not Available lidocaine (PF) 5 mg/mL (0.5 %) injection solution Take 30 mg by injection route. 10/14 completed Not Available Not Available Not Available Orencia (with maltose) 250 mg intravenous solution INFUSE 500 MG OVER 30 MINUTE(S) BY INTRAVENO US ROUTE EVERY 4 WEEKS 2021 active Not Available Not Available Not Avai lable Enbrel SureClick 50 mg/mL (1 mL) subcutaneou s pen injector 07/25 completed Not Available Not Available Not Available trospium ER 60 mg capsule,ext ended release 24 hr TAKE 1 CAPSULE BY MOUTH EVERY DAY active Not Available Not Available No t Available Senexon-S 8.6 mg-50 mg tablet TAKE 1 TABLET BY MOUTH TWICE A DAY FOR CONSTIPAT ION 10/14 completed Not Available Not Available Not Available Tradjenta 5 mg tablet TAKE 1 TABLET BY MOUTH EVERY DAY 02/05 completed Not Available Not Available Not Available ropivacaine (PF) 5 mg/mL (0.5 %) injection solution Take 40 mg by injection route. 10/14 completed Not Available Not Available Not Available OneTouch Verio test strips USE TO TEST ONCE DAILY active Not Available Not Available No t Available Xeljanz XR 11 mg tablet,exte nded release active Not Available Not Available Not Available Orencia ClickJect 125 mg/mL subcutaneou s auto-inject or 03/03 completed Not Available Not Available Not Available Flucelvax Quad 4218-9381 (PF) 60 mcg (15 mcg x 4)/0.5 mL IM syringe TO BE ADMINISTE RED BY PHARMACIS T FOR IMMUNIZAT ION 07/25 completed Not Available Not Available Not Available Olumiant 2 mg tablet 07/25 completed Not Available Not Available Not Available Flucelvax Quad (PF) 60 mcg (15 mcg x 4)/0.5 mL IM syringe TO BE ADMINISTE RED BY PHARMACIS T FOR IMMUNIZAT ION 07/25 completed Not Available Not Available Not Available OneTouch Delica Plus Lancet 33 gauge USE TO TEST BLOOD SUGAR ONCE DAILY active Not Available Not Available No t Available Fluzone High-Dose (PF) 180 mcg/0.5 mL intramuscul ar syringe TO BE ADMINISTE RED BY PHARMACIS T FOR IMMUNIZAT ION active Not Available Not Available No t Available Rinvoq 15 mg tablet,exte nded release 03/03 completed Not Available Not Available Not Available OneTouch Verio Reflect Meter USE TO TEST ONCE DAILY active Not Available Not Available No t Available BinaxNOW COVID-19 Ag Self Test kit USE DIRECTED 02/05 completed Not Available Not Available Not Available Vitals Date Recorded Body height Body mass index (BMI) Body weight Provider Name and Address Organization Details Last Updated DateTime 07/10/2023 154.94 cm 30.2 kg/m2 15423.78 g Estela Hanson CNA [place] [employer] [facility] [employer] 07/10/2023 09:35:28 Date Recorded Body height Body weight Body temperature Heart rate Oxygen saturation Oxygen saturation in Arterial blood by Pulse oximetry Systolic blood pressure Diastolic blood pressure Provider Name and Address Organization Details Last Updated DateTime 3 154.94 cm 82835.4 4 g 97 [degF] 81 /min 96 % 96 % 138 mm[Hg] 96 mm[Hg] Lillie Corbett MA [employer] 15:20:48 Date Recorded Body height Body mass index (BMI) Body weight Heart rate Body temperature Oxygen saturation Oxygen saturation in Arterial blood by Pulse oximetry Systolic blood pressure Diastolic blood pressure Provider Name and Address Organization Details Last Updated DateTime 4 154.94 cm 34.8 kg/m2 36623 g 93 /min 97 [degF] 96 % 96 % 120 mm[Hg] 78 mm[Hg] Kassy Avalos [facility] [employer] [facility] 4 10:53:45 Date Recorded Body height Body mass index (BMI) Body weight Heart rate Body temperature Oxygen saturation Oxygen saturation in Arterial blood by Pulse oximetry Systolic blood pressure Diastolic blood pressure Provider Name and Address Organization Details Last Updated DateTime 4 154.94 cm 33.3 kg/m2 48447.2 6 g 96 /min 97.8 [degF] 96 % 96 % 130 mm[Hg] 82 mm[Hg] Jessica Dunbar Deondre [facility] 4 10:43:57 Date Recorded Pain severity - 0-10 verbal numeric rating [Score] - Reported Provider Name and Address Organization Details Last Updated DateTime 07/14/2024 3 Julieta Art RN [facility] [employer] [facility] 07/14/2024 10:48:12 Date Recorded Body height Body mass index (BMI) Body weight Heart rate Body temperature Oxygen saturation Oxygen saturation in Arterial blood by Pulse oximetry Systolic blood pressure Diastolic blood pressure Provider Name and Address Organization Details Last Updated DateTime 4 154.94 cm 32.7 kg/m2 03593.4 8 g 93 /min 97 [degF] 98 % 98 % 130 mm[Hg] 80 mm[Hg] JEREMIE Kimball [facility] 4 14:22:27 Social History Question Answer Notes LastModified by Organizat ion Details LastModified Time Tobacco Smoking Status Never Smoker Not Available [facility] 01/22/2023 05:52:47 Do You Have An Advance Directive? No [id number] Information not available 01/22/2023 What Is Your Level Of Alcohol Consumption? None MIGRATION. Information not available 01/22/2023 Are You Blind Or Do You Have Difficulty Seeing? No MIGRATION. [id number] Information not available 01/22/2023 In The 14 Days Before Symptom Onset, Have You Had Close Contact With A Laboratory-confi rmed COVID-19 While That Case Was Ill? No MIGRATION. Information not available 01/22/2023 In The 14 Days Before Symptom Onset, Have You Had Close Contact With A Person Who Is Under Investigation For COVID-19 While That Person Was Ill? No [id number].[id number] Information not available 01/22/2023 Are You Deaf Or Do You Have Serious Difficulty Hearing? Yes Sometimes [id number].78533 78453 Information not available 01/22/2023 What Type Of Diet Are You Following? REGULAR MIGRATION.81631 81069 Information not available 01/22/2023 Have There Been Any Changes To Your Family Or Social Situation? No MIGRATION.60853 78244 Information not available 01/22/2023 What Is The Fluoride Status Of Your Home? Unknown MIGRATION.48116 10008 Information not available 01/22/2023 Are There Any Guns Present In Your Home? No MIGRATION.79938 [id number] Information not available 01/22/2023 Do You Use Insect Repellent Routinely? No MIGRATION.74391 57124 Information not available 01/22/2023 [facility] You [facility]? [facility] MIGRATION.89557 08165 Information not available 01/22/2023 Guns Present In The Home? No Information not available 06/04/2023 Are You Able To Care For Yourself? Yes [email or web address] Information not available 06/04/2023 Are You Blind Or Do Yo Have Difficulty Seeing? No [email or web address] Information not available 06/04/2023 Are You Deaf Or Do You Have Serious Difficulty Hearing? No [email or web address] Information not available 06/04/2023 Live Alone Of With Others? With Others [email or web address] Information not available 06/04/2023 Do You Have A Medical Power Of Product Support Representative? No MIGRATION.36931 [id number] Information not available 01/22/2023 What Was The Date Of Your Most Recent Tobacco Screening? 07/14/2024 [email or web address] Information not available 07/14/2024 Do You Have Any Pets? Yes MIGRATION.17829 94413 Information not available 01/22/2023 What Is Your Relationship Status? MIGRATION.76179 [id number] Information not available 01/22/2023 Do You Use Your Seat Belt Or Car Seat Routinely? Yes MIGRATION.60156 37731 Information not available 01/22/2023 Do You Have Smoke And Carbon Monoxide Detectors In Your Home? Yes MIGRATION.61542 83928 Information not available 01/22/2023 Are You Passively Exposed To Smoke? No MIGRATION.21390 58517 Information not available 01/22/2023 Are There Any Smokers In Your House? No [email or web address] Information not available 06/04/2023 Do You Use Sunscreen Routinely? Yes MIGRATION.47459 57819 Information not available 01/22/2023 Have You Recently Traveled Abroad? No MIGRATION.71332 72989 Information not available 01/22/2023 Do You Have Any Dietary Restrictions? No MIGRATION.50143 42711 Information not available 01/22/2023 Sex: Female Functional Status Question Answer Note LastModified by Organizat ion Details LastModified Time Do you have difficulty walking or climbing stairs? Yes recent broken hip [email or web address] Information not available 06/04/2023 Do you have transportation difficulties? No MIGRATION.140183 3619 Information not available 01/22/2023 Are you able to walk? YESASSIST [email or web address] Information not available 06/04/2023 Do you have difficulty doing errands alone? No MIGRATION.667066 1231 Information not available 01/22/2023 Are you able to care for yourself? Yes MIGRATION.437823 8462 Information not available 01/22/2023 Do you have difficulty dressing or bathing? No MIGRATION.248527 2152 Information not available 01/22/2023 What is your exercise level? None [email or web address] Information not available 07/14/2024 Mental Status Question Answer Note LastModified by Organizat ion Details LastModified Time Do you have difficulty concentrating, remembering or making decisions? No MIGRATION.[id number] Information not available 01/22/2023 Family History Nothing Reported Notes:Mother 67 from CV A and essential hypertension Father 82 in his sleep with no previous history of any medical problems. Three brothers one of complications related to Type II DM, ASHD and circulation. One brother has Type II DM and the other in infancy Medical History Condition Response NERVE DISEASE N BLINDNESS N RHEUMATIC FEVER N KIDNEY STONES N BLADDER PROBLEMS N MRSA N OTHER # 1 N POLIO N LUNG DISEASE/DISORDER N HISTORY OF DRUG ABUSE N RADIATION / CHEMOTHERAPY N COPD N Other # 2 N BLOOD DISEASES N EAR OR HEARING PROBLEMS N MUMPS N SHINGLES N DEPRESSION (INCLUDING POST ) Y BOWEL PROBLEMS N STROKE/TIA N ULCERS N BENIGN PROSTATIC HYPERPLASIA N MEASLES N HYPOTENSION N MYOCARDIAL INFARCTION N OBESITY N GERD/NAUSEA N ANEURYSM N URINARY/BLADDER/KIDNEY PROBLEMS N CORONARY ARTERY DISEASE (CAD) N ADDICTION CONCERNS N Impotence N ENDOMETRIOSIS N USE OF BLOOD THINNERS N SKIN PROBLEMS N GASTROINTESTINAL DISORDER N PERIPHERAL VASCULAR DISEASE N MUSCLE,JOINT OR BONE PROBLEMS N GASTROINTESTINAL BLEEDING N BLOOD CLOTS N ASTHMA N CATARACTS N ERECTILE DYSFUNCTION N VARICOSITIES N GI PROBLEMS N Low Testosterone N INFERTILITY N AIDS/HIV N CHEMOTHERAPY / RADIATION N LIVER DISEASE N MALE HYPOGONADISM N HYPERTENSION Y Deficiency N TOURETTE'S N ANXIETY DISORDER N BLOOD TRANSFUSION N ANEMIA/BLOOD DISORDER N CHRONIC EAR INFECTIONS N BRONCHITIS N TUBERCULOSIS N GLAUCOMA N FOOT PROBLEM N DIVERTICULITIS N SLEEP APNEA N CHICKENPOX N INFECTIOUS DISEASE N PROSTATE N HEART ARRHYTHMIA N INSOMNIA N HIGH CHOLESTEROL / HYPERLIPIDEMIA Y HYPERTHYROIDISM N EYE PROBLEMS N EDEMA N CHRONIC PAIN SYNDROME N HYPOTHYROIDISM Y CONSTIPATION N CAROTID BLOCKAGE N BACK / NECK PROBLEMS N HAVE YOU BEEN HOSPITALIZED OR SEEN IN [facility] IN THE PAST YEAR ? N ATHEROSCLEROSIS N BREAST PROBLEMS N DIALYSIS N ECZEMA N OSTEOPOROSIS N ARTHRITIS Y NO SIGNIFICANT PAST MEDICAL HISTORY N APPENDICITIS N DIABETES, TYPE Y BAD TEETH N ENT N HEARTBURN / REFLUX N AUTISM SPECTRUM DISORDER (ASD) N HEPATITIS / LIVER DISEASE N GOUT N SLEEP DISORDER N ALZHEIMER'S DISEASE N Brain Problems N HERPES N DEMENTIA N SEIZURES/EPILEPSY N HEADACHES/MIGRAINES N VASCULAR DISEASE N PACEMAKER N Blood Disorder N DIZZINESS N KIDNEY DISEASE N HEART DISEASE/HEART PROBLEMS N MULTIPLE SCLEROSIS N CARDIAC ARRHYTHMIA N CANCER: SPECIFY N Gall Stones N ATRIAL FIBRILLATION N PULMONARY EMBOLISM N AUTOIMMUNE DISEASE N Gynecological HistoryNo gynecological history recorded. Obstetrics History GPAL:G 0 P 0 0 0 0 Immunizations Vaccine Type Date Status Note Provider Nam e and Address Organization Details Recorded Time COVID-19, mRNA, LNP-S, PF, 30 mcg/0.3 mL dose 4 completed JEREMIE Kimball, [employer] 09/23/2024 10:46:19 influenza, unspecified formulation 4 completed JEREMIE Kimball, [employer] [facility] [employer] 09/23/2024 10:46:52 SARS-COV-2 (COVID-19) vaccine, UNSPECIFIED 2 completed Not Available [facility] 01/22/2023 06:04:00 Influenza, split virus, quadrivalent, preservative 9 completed Not Available [facility] 01/22/2023 06:04:00 COVID-19, mRNA, LNP-S, PF, 30 mcg/0.3 mL dose 2 completed Not Available [facility] 01/22/2023 06:04:01 COVID-19, mRNA, LNP-S, PF, 30 mcg/0.3 mL dose 1 completed Not Available [facility] 01/22/2023 06:04:01 pneumococcal polysaccharide PPV23 1 completed Not Available [facility] 01/22/2023 06:04:01 Influenza, split virus, quadrivalent, preservative 1 completed Not Available [facility] 01/22/2023 06:04:01 COVID-19 Non-US Vaccine, Product Unknown 1 completed Not Available [facility] 01/22/2023 06:04:01 COVID-19 Non-US Vaccine, Product Unknown 1 completed Not Available [facility] 01/22/2023 06:04:01 Influenza, high-dose, quadrivalent, PF 2 completed Not Available [facility] 01/22/2023 06:04:01 Pneumococcal conjugate PCV 13 9 completed Not Available [facility] 01/22/2023 06:04:01 Influenza, high-dose, quadrivalent, PF 3 completed VIKTORIA Glez [place] [employer] [facility] 10/15/2023 16:14:28 Past Encounters Encounter ID Performer Location Encounter Start Date Encounter Closed Date Diagnosis/Indication Diagnosis SNOMED-CT Code Diagnosis ICD10 Code Diagnosis Note [id number] [facility] [address] [address] 07/25/2021 00:00:00 07/25/2021 11:10:05 [id number] [facility] [address] [address] 11/28/2021 00:00:00 11/28/2021 10:56:19 [id number] [facility] [place] [address] [place] [address] 02/28/2022 00:00:00 02/28/2022 10:22:25 [id number] [facility] [address] [address] 03/27/2022 00:00:00 03/27/2022 10:34:36 [id number] [facility] [place] [address] [place] [address] 03/28/2022 00:00:00 03/28/2022 10:18:50 [id number] [facility] [place] [address] [place] [address] 07/22/2022 00:00:00 07/22/2022 11:50:39 [id number] [facility] [address] [address] 10/14/2022 00:00:00 10/14/2022 11:51:44 [id number] Mona Wilkes MD [facility] Internal [facility] [address] [address] 02/05/2023 10:42:19 02/05/2023 11:24:17 Essential hypertension 38099684 I10 Hypercholesterolemia 136 94882 E78.00 Type 2 florentin betes mellitus 27183424 E11.9 Senile osteoporosis 1804 0001 M81.0 Obesity 878277225 E66.9 Hypothyroidism 43465185 E03.9 [id number] Mona Wilkes MD [facility] [address] [address] 06/04/2023 10:42:19 06/04/2023 11:34:41 Adult health examination 543061097 Z00.00 Screening for disorder 922085413 Z13.9 Essential hypertension 92469974 I10 Hypercholesterolemia 136 70425 E78.00 Diabetes mellitus 175900 09 E11.9 Hypothyroidism 38124873 E03.9 Rheumatoid arthritis 698 17260 M06.9 [id number] Nicolás Jaquez MD [facility] [place] [address] [place] [address] 06/09/2023 09:45:35 06/09/2023 10:49:33 History of left total knee replacement 1519183708 385582 Z96.652 [id number] Nicolás Jaquez MD [facility] [place] [address] [place] [address] 07/10/2023 09:32:20 07/10/2023 11:18:47 History of left total knee replacement 2882902307 156403 Z96.001 [id number] Mona Wilkes MD [facility] [address] [address] 10/15/2023 14:32:44 10/15/2023 15:45:18 Essential hypertension 25141843 I10 Hypercholesterolemia 136 17371 E78.00 Hypothyroidism 55585444 E03.9 Type 2 florentin betes mellitus 85910574 E11.9 Rheumatoid arthritis 698 49480 M06.9 Obese class I 1250694300 97472 E66.9 Administra tion of influenza vaccine 44166694 Z23 [id number] Mona Wilkes MD [facility] Internal [facility] [address] [address] 03/03/2024 10:26:12 03/03/2024 11:15:10 Essential hypertension 07131336 I10 Gastroesop hageal reflux disease 311680204 K21.9 Hypercholesterolemia 136 82486 E78.00 Hypothyroidism 48712870 E03.9 Type 2 florentin betes mellitus 79274782 E11.9 Rheumatoid arthritis 698 51723 M06.[id number] [facility] Internal Med [facility] [address] [address] 07/14/2024 10:37:53 07/14/2024 11:10:55 Adult health examination 557939452 Z00.00 Screening for disorder 602591063 Z13.9 Essential hypertension 68535471 I10 Hypercholesterolemia 136 44342 E78.00 Type 2 florentin betes mellitus 64192795 E11.9 Gastroesop hageal reflux disease 809782632 K21.9 Rheumatoid arthritis 698 75677 M06.9 Obese class I 3534509856 73831 E66.9 [id number] Mona Wilkes MD [facility] Med [facility] [address] [place] [address] 11/18/2024 14:14:45 11/18/2024 14:41:44 Essential hypertension 60963826 I10 Hypercholesterolemia 136 30957 E78.00 Hypothyroidism 03353442 E03.9 Type 2 florentin betes mellitus 87872892 E11.9 Rheumatoid arthritis 698 41497 M06.9 Vitamin D deficiency 347 29227 E55.9 Gastroesop hageal reflux disease 494966632 K21.9 Health Concerns Section Related Observation LastModified by Organization Detai ls LastModified Time None Recorded Concern Status LastModified by Organization Details LastModified Time None Recorded Advance Directives Directive N: Payers Encounter Date Sequence Insurance Name Policy Number Policy Vazquez Covered Member ID Vazquez Member ID Guarantor Name 07/10/2023 1 [employer] (MEDICARE REPLACEMENT PPO) [id number] 1 Andria White [id number] Andria White 10/15/2023 1 [employer] (MEDICARE REPLACEMENT PPO) [id number] 1 Andria White [id number] Andria White 03/03/2024 1 [employer] (MEDICARE REPLACEMENT PPO) [id number] 1 Andria White [id number] Andria White 07/14/2024 1 [employer] (MEDICARE REPLACEMENT PPO) [id number] 1 Andria White [id number] Andria White 11/18/2024 1 [employer] (MEDICARE REPLACEMENT PPO) [id number] 1 Andria White [id number] Andria hWite Notes Date Note Type Note Provider Name and Address Organization Details Recorded Time 3 text/html Patient presents knee pain left. It has been years since I have seen her and the pain persist in the left knee occasionally catches on her however overall she is getting around fairly well. Nicolás Jaquez MD [address], [place], [address], [place] [facility] [employer] 07/10/2023 09:45:17 3 text/html Patient Name: Candice Troy Anna Of Service: Friday ( 10.15.2023 ): 1955 Age: 68 There has been approximately a 8.2 lb weight gain since 06/04/2023. This represents approximately a 4.8% change in weight. Weight change attributable to lifestyle changes. Vital Signs:Blood Pressure: Sitting Rt. Arm 138/96Pulse: Sitting 81 /min and RegularRespiratory Rate: 12Height 61 in or 1.5 mWeight 178 lb or 80.7 kgBMI 33.6Temperature: 96.7 F or 35.9 CPulse Oximetry: 96 % at rest on no oxygen Chief Complaint: Addressed in HPI Problems or conditions discussed in the HPI were the only ones reviewed during the encounter.Only social and family history addressed in the HPI were reviewed during this encounter. Attendant(s): NoneConstitutional and Systemic Symptoms:none Medication Reconciliation: from medication list. AnnotationsBone density scan 02/24/2023 showed normal bone density the lumbar spine with osteopenia of the hips. Continue on calcium and vitamin-D supplement no other is Medication is required at this time History of Present Illness #1. Essential Hypertension: Stage: Stage I Interval Neurological Complaints no headaches, dizziness, weakness, visual changes, ataxia, aphasia and apraxia. No shortness of breath, orthopnea or cardiovascular symptoms. No other symptoms related to end organ damage. Pressure has been under fair control. Currently elevated and instructed to recheck in office in two weeks. No other end organ symptoms or findings. Therapy reviewed regarding management of hypertension and includes salt restriction and Lotrel. #2. Type II Hypercholesterolaemia: Currently taking medication and tolerating well. No interval complaints of any muscle pain or arthralgia. No significant liver changes with medications. Last lipid panel: fair control. Therapy reviewed regarding treatment of cholesterol management and include diet and Zocor. #3. Hx of hypothyroidism currently stable. Heat intolerance: no Fatigue: no Weight gain: no Difficulty concentrating: no Muscle Symptoms: none Skin Texture: normal Skin Color: normal Currently taking synthroid. #4. Type II Diabetes: Has had no polyuria polyphagia or polydipsia. Has had no hypoglycemic like responses. No new history of any numbness, tingling, weakness or visual problems. No nausea, anorexia or other constitutional symptoms. There has been no foot problems or non healing lesions. The last HAIC was DCCT HAIC: 8.4 Calculated MB mg%. Average blood sugars > 150 mg%. Checking sugars : several times a week Medication Types Include: Metformin and Sulfonylureas Secondary complications include none. Macro-vascular complications include none. Therapy reviewed regarding diabetic management and include Amaryl and Glucophage Compliance: good Renal Protection: MARQUISE inhibitors Lipid management: statins Urinary microalbumin: A1 . Ophthalmological: has seen eye doctor within the last year #5. Hx of rheumatoid arthritis. Currently stable. No additional joint swelling or deformities noted. Synovial thickening as noted below. Physical activity status unchanged. Followed by Property Staff Accountant: Yes. Tolerating medications well. Medications currently consistent of Rinvoq. #6. Hx of obesity. Currently Class 1 Obesity BMI 30-34.99. Has tried numerous dietary support and supplements with no benefit. Instructed on the health consequences of the obese status particularly cancer - diabetes and heart disease. Discussed new modalities of weight loss including GLP-1 medications that are used to treat diabetes. Potential candidate for bariatric surgery: No. Wishes to be evaluated by Dietary: No and was offered to be evaluated and instructed by environmental sustainability manager on weight loss diet.Medication List Reviewed and Reconciled 10/15/2023Levothyroxine 25 UG TABLET One Daily For Thyroid ReplacementLotrel 5 MG-40 MG (CAPSULE - ORAL) One Daily For Blood PressureFosamax 70 MG (TABLET - ORAL) WeeklyRinvoq 15 MG TABLET, EXTENDED RELEASE One DailyVitamin D 50,000 IU (CAPSULE - ORAL) WeeklyGlucophage 500 MG One BidZocor 20 MG TABLET, FILM COATED One DialyFerrous Sulfate 325 MG TABLET One Twice A DayAmaryl 2 MG (TABLET - ORAL) One Twice DailyVaccination and Jtjtkyhubwjm6458-37 Hauifrftj8443-03 Covid Booster Zohiit1460-35 Lxohicuc6637-16 Covid Ysmevy5447-27 Prevnar 13 GcSurgical HistoryLeft Hip Fracture, Rt. Knee Meniscus, SEYMOUR BSO, Left Total Knee Replacement, Tubal LigationPreventative Testing Confirmed by Our Dficwqu3602/25/2023 MAMMOGRAM /01/2023 DEXA SCAN ( 2 YEARS ) 5012/27/2022 ALBUMIN 4.2 G/DL N012/27/2022 MICRO ALBUMIN 13.6 MG/DL N012/27/2022 HAIC 8.4 % OF TOTAL HGB H004/05/2022 COLONOSCOPY UPPER ENDOSCOPYSocial HistoryDoes not smokeDrinks sociallyWorks in the accounting department at [facility] HistoryMother 67 from CVA and essential hypertensionFather 82 in his sleep with no previous history of any medical problems.Three brothers one of complications related to Type II DM, ASHD and circulation. One brother has Type II DM and the other in infancyMenarche 12 Menopause A0 TEST RESULT RANGE UNITSLIPID PANEL, STANDARD Date: 12/27/2022HOLESTEROL, TOTAL 168 <200 MG/DLHDL CHOLESTEROL 45 > OR = 50 MG/DLTRIGLYCERIDES 191 <150 MG/DLLDL-CHOLESTEROL 94 MG/DL (CALC)HEMOGLOBIN A1C Date: 12/27/2022HEMOGLOBIN A1C 8.4 <5.7 % OF TOTAL HGB Mona Wilkes MD [address] [facility], [facility] [address], [place], [address], [facility] 10/15/2023 15:39:47 4 text/html Patient Name: Candice Castillo Of Service: Friday ( 03.03.2024 ): 1955 Age: 68 There has been approximately a 6 lb weight gain since 10/15/2023. This represents approximately a 3.4% change in weight. Weight change attributable to lifestyle changes. Vital Signs:Blood Pressure: Sitting Rt. Arm 120/78Pulse: Sitting 93 /min and RegularRespiratory Rate: 12Height 61 in or 1.5 mWeight 184 lb or 83.5 kgBMI 34.8Temperature: 97 F or 36.1 CPulse Oximetry: 96 % at rest on no oxygen Chief Complaint: Addressed in HPI Problems or conditions discussed in the HPI were the only ones reviewed during the encounter.Only social and family history addressed in the HPI were reviewed during this encounter. Attendant(s): NoneConstitutional and Systemic Symptoms:none Medication Reconciliation: from medication list. Fqrpcjtbran89/03/2023 : Bone density scan showed normal bone density the lumbar spine with osteopenia of the hips. Continue on calcium and vitamin-D supplement no other is Medication is required at this time 12-31-2023: CT scan of the abdomen showed a mild compression fracture of L1. Small fat containing umbilical hernia. Also small hiatus hernia and fatty infiltration liver. History of Present Illness #1. Essential Hypertension: Stage: Stage I Interval Neurological Complaints no headaches, dizziness, weakness, visual changes, ataxia, aphasia and apraxia. No shortness of breath, orthopnea or cardiovascular symptoms. No other symptoms related to end organ damage. Pressure has been under excellent control. Currently normal. No other end organ symptoms or findings. Therapy reviewed regarding management of hypertension and includes salt restriction and Lotrel. #2. Type II Hypercholesterolaemia: Currently taking medication and tolerating well. No interval complaints of any muscle pain or arthralgia. No significant liver changes with medications. Last lipid panel: fair control. Therapy reviewed regarding treatment of cholesterol management and include diet and Zocor. #3. Type II Diabetes: Has had no polyuria polyphagia or polydipsia. Has had no hypoglycemic like responses. No new history of any numbness, tingling, weakness or visual problems. No nausea, anorexia or other constitutional symptoms. There has been no foot problems or non healing lesions. [facility] Calculated MB mg%. Average blood sugars > 150 mg%. Checking sugars : several times a week Medication Types Include: Metformin and Sulfonylureas Secondary complications include none. Macro-vascular complications include none. Therapy reviewed regarding diabetic management and include Amaryl and Glucophage Compliance: good Renal Protection: MARQUISE inhibitors Lipid management: statins Urinary microalbumin: A1 . Ophthalmological: has seen eye doctor within the last year #4. Hx of hypothyroidism currently stable. Heat intolerance: no Fatigue: no Weight gain: no Difficulty concentrating: no Muscle Symptoms: none Skin Texture: normal Skin Color: normal Currently taking synthroid. #5. Hx of esophageal reflux currently stable. Hx of Complications: none The severity, duration and intensity of symptoms have improved. Frequency: most meals Treatment consists medications taken on a regular basis. Current therapy includes Pantoprazole. There has been no nausea, eructation, vomiting, hematemesis, dysphagia, velopharyngeal insufficiency and odynophagia. No change in he frequency or intensity of symptoms. Has had no melena. Has had no . Discussed use of H2 antagonists and the possibility of trying to reduce the frequency of the use of any PPI inhibitors and try H2 antagonists to see if symptoms can be controlled with lease intensive therapy since a number of complications are associated with chronic prolonged use of PPI inhibitors. #6. Hx of rheumatoid arthritis. Currently stable. No additional joint swelling or deformities noted. Synovial thickening as noted below. Physical activity status unchanged. Followed by Property Staff Accountant: Yes. Tolerating medications well. Medications currently consistent of NSAIDS. Active Medication ListLevothyroxine 25 UG TABLET One Daily For Thyroid ReplacementLotrel 5 MG-40 MG (CAPSULE - ORAL) One Daily For Blood PressureFosamax 70 MG (TABLET - ORAL) WeeklyVitamin D 50,000 IU (CAPSULE - ORAL) WeeklyPantoprazole 40 MG TABLET Once DailyGlucophage 500 MG One BidZocor 20 MG TABLET, FILM COATED One DialyFerrous Sulfate 325 MG TABLET One Twice A DayAmaryl 2 MG (TABLET - ORAL) One Twice Daily Vaccination and Cnilimvauigo6056-90 Exielbasi9127-24 Covid Booster Pfbmcm8909-30 Eoptnsmq7443-05 Covid Leaitl4837-75 Prevnar 13 Gc Surgical Oajcpfa1790-57 Left Hip Gnlkrhjv6268-06 Rt. Knee Tcosyuhf6055-30 [facility] GVE9781-53 Left Total Knee Azfuxojfnqe1799-31 Tubal Ligation Preventative Ntsjkdx0001/21/2024 UPPER VWPOFFIQB63/04/2023 MAMMOGRAM /01/2023 DEXA SCAN ( 2 YEARS ) 5012/27/2022 ALBUMIN 4.2 G/DL N012/27/2022 MICRO ALBUMIN 13.6 MG/DL N012/27/2022 HAIC 8.4 % OF TOTAL HGB H004/05/2022 COLONOSCOPY 04/05/2032 Social HistoryDoes not smokeDrinks sociallyWorks in the accounting department at [employer] Family HistoryMother 67 from CVA and essential hypertensionFather 82 in his sleep with no previous history of any medical problems.Three brothers one of complications related to Type II DM, ASHD and circulation. One brother has Type II DM and the other in infancyMenarche 12 Menopause A0 Mona Wilkes MD [address] [facility], [address], [place], [address], [facility] [employer] 03/03/2024 11:09:41 4 text/html Patient Name: Candice Castillo Of Service: Friday ( 07.14.2024 ): 1955 Age: 68 There has been approximately a 8 lb weight loss since 03/03/2024. This represents approximately a 4.3% change in weight. Weight change attributable to lifestyle changes. Vital Signs:Blood Pressure: Sitting Rt. Arm 130/82Pulse: Sitting 96 /min and RegularRespiratory Rate: 14Height 61 in or 1.5 mWeight 176 lb or 79.8 kgBMI 33.3Temperature: 97.8 F or 36.6 CPulse Oximetry: 96 % at rest on no oxygen Chief Complaint: Addressed in HPI Problems or conditions discussed in the HPI were the only ones reviewed during the encounter.Only social and family history addressed in the HPI were reviewed during this encounter. A significant, separate E/M service was performed to evaluate the current and new problems. Attendant(s): NoneConstitutional and Systemic Symptoms:none Medication Reconciliation: from medication list. Wmjgqpitjwq38/03/2023 : Bone density scan showed normal bone density the lumbar spine with osteopenia of the hips. Continue on calcium and vitamin-D supplement no other is Medication is required at this time 12-31-2023: CT scan of the abdomen showed a mild compression fracture of L1. Small fat containing umbilical hernia. Also small hiatus hernia and fatty infiltration liver. 03-30-2024: HIDA scan negative for biliary obstruction 04-08-2024: Ultrasound liver shows some diffuse fatty infiltration no other abnormalities History of Present Illness Reviewed the findings of the preventative health visit. Addressed all areas with the patient, patient's family or caregivers. Preventative examinations and testing immunizations - vaccinations, colonic neoplasm screening and mammograms all reviewed and ordered where patient was amenable to the recommendations. Cognitive function was normal. Depression addressed and where necessary medications were adjusted or instituted. End of life and living will briefly discussed with patient and where these can be filled out and legally executed. Other blood and imaging studies were ordered if considered necessary. Other recommendations may be found in the encounter note. #1. Essential Hypertension: Stage: normal Interval Neurological Complaints no headaches, dizziness, weakness and visual changes. No shortness of breath, orthopnea or cardiovascular symptoms. No other symptoms related to end organ damage. Pressure has been under excellent control. Currently normal. No other end organ symptoms or findings. Therapy reviewed regarding management of hypertension and includes salt restriction and Lotrel. #2. Type II Hypercholesterolaemia: Currently taking medication and tolerating well. No interval complaints of any muscle pain or arthralgia. No significant liver changes with medications. Last lipid panel: fair control. Therapy reviewed regarding treatment of cholesterol management and include diet and Zocor. #3. Type II Diabetes: Has had no polyuria polyphagia or polydipsia. Has had several hypoglycemic like responses. No new history of any numbness, tingling, weakness or visual problems. No nausea, anorexia or other constitutional symptoms. There has been no foot problems or non healing lesions. The last HAIC was DCCT HAIC: 9.8 Calculated MB mg%. Average blood sugars > 150 mg%. Checking sugars : several times a week Medication Types Include: Metformin and Sulfonylureas Secondary complications include none. Macro-vascular complications include none. Therapy reviewed regarding diabetic management and include Glimepiride and Glucophage Compliance: good Renal Protection: MARQUISE inhibitors Lipid management: statins Urinary microalbumin: A1 . Ophthalmological: has seen eye doctor within the last year #4. Hx of esophageal reflux currently stable. Hx of Complications: none The severity, duration and intensity of symptoms have improved. Frequency: most meals Treatment consists medications taken on a regular basis. Current therapy includes Pantoprazole. There has been no nausea, eructation, vomiting, hematemesis, dysphagia, velopharyngeal insufficiency and odynophagia. No change in he frequency or intensity of symptoms. Has had no melena. Has had no . Discussed use of H2 antagonists NA. #5. Hx of rheumatoid arthritis. Currently stable. No additional joint swelling or deformities noted. Synovial thickening as noted below. Physical activity status unchanged. Followed by Property Staff Accountant: Yes. Tolerating medications well. Medications currently consistent of Prednisone. #6. Hx of obesity. Currently Class 1 Obesity BMI 30-34.99. Has tried numerous dietary support and supplements with no benefit. Instructed on the health consequences of the obese status particularly cancer - diabetes and heart disease. Discussed other modalities of weight loss no. Potential candidate for bariatric surgery: No. Wishes to be evaluated by Dietary: No and was offered to be evaluated and instructed by environmental sustainability manager on weight loss diet. Active Medication ListLevothyroxine 25 UG TABLET One Daily For Thyroid ReplacementLotrel 5 MG-40 MG (CAPSULE - ORAL) One Daily For Blood PressureFosamax 70 MG (TABLET - ORAL) WeeklyVitamin D 50,000 IU (CAPSULE - ORAL) WeeklyPantoprazole 40 MG TABLET Once DailyGlucophage 1000 MG One BidZocor 40 MG TABLET, FILM COATED One DialyFerrous Sulfate 325 MG TABLET One Twice A DayGlimepiride 4 MG TABLET One Twice DailyPrednisone 10 MG TABLET Total Of 15mg Daily Vaccination and Akqvndkfaxxo7414-04 Rfdadkwqi7368-17 Covid Booster Nrqhoq9827-11 Sufysodj0516-41 Covid Tflvtp3446-37 Prevnar 13 Gc Surgical Esxvjyj3027-94 Left Hip Axxyppnv8616-11 Rt. Knee Hgmjrwnl8542-55 [facility] JEI1368-81 Left Total Knee Lshpbyjxsie9198-87 Tubal Ligation Preventative Testing( ) 07/09/2024 Albumin 4.1 G/DL N( ) 07/09/2024 Micro Albumin 0.8 MG/DL N( ) 07/09/2024 HAIC 9.8 % OF TOTAL HGB H( ) 01/21/2024 Upper Endoscopy( ) 02/25/2023 Mammogram 02/25/2025( ) 02/24/2023 DEXA Scan ( 2 Years ) 02/24/2025( ) 04/05/2022 Colonoscopy 04/05/2032 Social HistoryDoes not smokeDrinks sociallyWorks in the accounting department at [employer] Family HistoryMother 67 from CVA and essential hypertensionFather 82 in his sleep with no previous history of any medical problems.Three brothers one of complications related to Type II DM, ASHD and circulation. One brother has Type II DM and the other in infancyMenarche 11 Menopause A0 TEST RESULT RANGE UNITSCOMPREHENSIVE METABOLIC PANEL Date: 07/09/2024SODIUM 137 135-146 MMOL/LPOTASSIUM 3.6 3.5-5.3 MMOL/LGLUCOSE 91 65-99 MG/DLUREA NITROGEN (BUN) 9 7-25 MG/DLCREATININE 0.55 0.50-1.05 MG/DLEGFR 99 > OR = 60 ML/MIN/1.88L4KZFXPZC 9.8 8.6-10.4 MG/DLAST 36 10-35 U/LALT 51 6-29 U/LALKALINE PHOSPHATASE 72 37-153 U/LBILIRUBIN, TOTAL 0.5 0.2-1.2 MG/DLHEMOGLOBIN A1C Date: 07/09/2024HEMOGLOBIN A1C 9.8 <5.7 % OF TOTAL HGBCBC (INCLUDES DIFF/PLT) Date: 07/09/2024WHITE BLOOD CELL COUNT 5.1 3.8-10.8 THOUSAND/ULHEMOGLOBIN 12.2 11.7-15.5 G/DLHEMATOCRIT 41.5 35.0-45.0 %PLATELET COUNT 207 140-400 THOUSAND/ULLIPID PANEL, STANDARD Date: 07/09/2024HOLESTEROL, TOTAL 212 <200 MG/DLHDL CHOLESTEROL 57 > OR = 50 MG/DLTRIGLYCERIDES 274 <150 MG/DLLDL-CHOLESTEROL 116 MG/DL (CALC)T4, FREE Date: 07/09/2024T4, FREE 1.0 0.8-1.8 NG/DLTSH Date: 07/09/2024TSH 9.44 0.40-4.50 MIU/L Mona Wilkes MD [address] [facility] [address], [place], [address], [facility] [employer] [facility] 07/14/2024 11:05:26 4 text/html Patient Name: Candice Castillo Of Service: October ( 11.18.2024 ): 1955 Age: 69 There has been approximately a 3 lb weight loss since 07/14/2024. This represents approximately a 1.7% change in weight. Weight change attributable to lifestyle changes. Vital Signs:Blood Pressure: Sitting Rt. Arm 130/80Pulse: Sitting 83 /min and RegularRespiratory Rate: 16Height 61 in or 1.5 mWeight 173 lb or 78.5 kgBMI 32.7Temperature: 97 F or 36.1 CPulse Oximetry: 98 % at rest on no oxygen Chief Complaint: Addressed in HPI Problems or conditions discussed in the HPI were the only ones reviewed during the encounter.Only social and family history addressed in the HPI were reviewed during this encounter. Attendant(s): NoneConstitutional and Systemic Symptoms:none Medication Reconciliation: from medication list. Nnzbgxwxrco53/03/2023 : Bone density scan showed normal bone density the lumbar spine with osteopenia of the hips. Continue on calcium and vitamin-D supplement no other is Medication is required at this time 12-31-2023: CT scan of the abdomen showed a mild compression fracture of L1. Small fat containing umbilical hernia. Also small hiatus hernia and fatty infiltration liver. 03-30-2024: HIDA scan negative for biliary obstruction 04-08-2024: Ultrasound liver shows some diffuse fatty infiltration no other abnormalities History of Present Illness #1. Essential Hypertension: Stage: Stage I Interval Neurological Complaints no headaches, dizziness, weakness, visual changes, ataxia, aphasia and apraxia. No shortness of breath, orthopnea or cardiovascular symptoms. No other symptoms related to end organ damage. Pressure has been under fair control. Currently normal. No other end organ symptoms or findings. Therapy reviewed regarding management of hypertension and includes salt restriction and Lotrel. #2. Type II Hypercholesterolaemia: Currently taking medication and tolerating well. No interval complaints of any muscle pain or arthralgia. No significant liver changes with medications. Last lipid panel: fair control. Therapy reviewed regarding treatment of cholesterol management and include diet and Zocor. #3. Hx of hypothyroidism currently stable. Heat intolerance: no Fatigue: no Weight gain: no Difficulty concentrating: no Muscle Symptoms: none Skin Texture: normal Skin Color: normal Currently taking synthroid. #4. Type II Diabetes: Has had no polyuria polyphagia or polydipsia. Has had no hypoglycemic like responses. No new history of any numbness, tingling, weakness or visual problems. No nausea, anorexia or other constitutional symptoms. There has been no foot problems or non healing lesions. [facility]: 9.1 Calculated MB mg%. CGM: No. Average blood sugars > 150 mg%. Checking sugars : several times a week. Medication Types Include: Metformin and Sulfonylureas Secondary complications include none. Macro-vascular complications include none. Therapy reviewed regarding diabetic management and include Glimepiride and Glucophage Compliance: good Renal Protection: MARQUISE inhibitors Lipid management: statins Urinary microalbumin: A1 . Ophthalmological: has seen eye doctor within the last year. Control: Inadequate control > 8 #5. Hx of rheumatoid arthritis. Currently stable. No additional joint swelling or deformities noted. Synovial thickening as noted below. Physical activity status unchanged. Followed by Property Staff Accountant: Yes. Tolerating medications well. Medications currently consistent of Prednisone, Trospium Chloride and Xeljanz. Active Medication ListLevothyroxine 25 UG TABLET One Daily For Thyroid ReplacementLotrel 5 MG-40 MG (CAPSULE - ORAL) One Daily For Blood PressureFosamax 70 MG (TABLET - ORAL) WeeklyVitamin D 50,000 IU (CAPSULE - ORAL) WeeklyPantoprazole 40 MG TABLET Once DailyGlucophage 1000 MG One BidZocor 40 MG TABLET, FILM COATED One DialyGlimepiride 4 MG TABLET One Twice DailyPrednisone 10 MG TABLET Total Of 15mg DailyXeljanz 11 MG TABLET, EXTENDED RELEASE One DailyTrospium Chloride 60 MG CAPSULE One Daily Vaccination and Immunization( ) 2024-08 INFLUENZA( ) 2019-09 PREVNAR 13 GC( ) 2020-12 COVID PFIZER( ) 2021-08 SHINGRIX( ) 2024-08 COVID BOOSTER PFIZER( ) 2024-08 PREVNAR 20 Surgical Dcybuji3906-25 Alin Ewlhsqzvqfmmth6364-62 Left Hip Smyxguic1668-96 Rt. Knee Xosqixhs8832-26 [facility] WKB6584-26 Left Total Knee Zpmtwxxzpmh5893-66 Tubal Ligation Preventative Testing( ) 08/26/2024 HAIC 9.1( ) 07/09/2024 Albumin 4.1 G/DL N( ) 07/09/2024 Micro Albumin 0.8 MG/DL N( ) 01/21/2024 Upper Endoscopy( ) 02/25/2023 Mammogram 02/25/2025( ) 02/24/2023 DEXA Scan ( 2 Years ) 02/24/2025( ) 04/05/2022 Colonoscopy 04/05/2032 Social HistoryDoes not smokeDrinks sociallyWorks in the accounting department at [employer] Family HistoryMother 67 from CVA and essential hypertensionFather 82 in his sleep with no previous history of any medical problems.Three brothers one of complications related to Type II DM, ASHD and circulation. One brother has Type II DM and the other in infancyMenarche 12 Menopause A0 Mona Wilkes MD [address] [facility] [facility] [address], [place], [address], [place] [facility] 11/18/2024 14:36:41 OBGyn Episode No OBEpisode recorded.
--- OUTSIDE RECORDS SUMMARY | 2025-02-13 13:23 | XMS_ITS | CONTINUITY OF CARE DOCUMENT ---
Author Name ryan davis Address Unknown Organization [facility] Address [address] [place] [address] Phone [phone] Care Team Providers Care President [employer] Name Role Phone ryan davis Unavailable Unavailable INSURANCE PROVIDERS Payer name Policy type / Coverage type Jus red libertarian ID [id number]- OPEN ACCESS/PPO Other [id number]
--- OUTSIDE RECORDS SUMMARY | 2025-02-13 13:24 | XMS_ITS ---
Author Name Jc Gonsales Carmen Address [address] [place] [address] Phone [phone] Organization [facility] ice Address [address] [place] [address] Phone [phone] Care Team Providers Care Learning And Development Coordinator Name Role Phone Jc Gonsales Unavailable [phone] Tor Dash Unavailable Functional Status No Results [...] 2021 * End Date: * Text: * disability counselor (current) use of immunosuppressive biologic* Code: * Start Date: FriAug 29 00:00:00 EDT 2021 * End Date: * Text: * [facility] (current) use of oral hypoglycemic drugs* Code: [...]
--- OUTSIDE RECORDS SUMMARY | 2025-02-13 13:24 | XMS_ITS | CONTINUITY OF CARE DOCUMENT ---
Author Name ryan davis Address Unknown Organization [facility] Address [address] [place] [address] Phone [phone] Care Team Providers Care Motorboat Operator Name Role Phone ryan davis Unavailable Unavailable INSURANCE PROVIDERS Payer name Policy type / Coverage type Jus red green party ID [id number]- OPEN ACCESS/PPO Other [id number]
[2025-02-13 13:35] VITALS: BP 156/71; PULSE 80; RESP 18; TEMP 36.6; O2SAT 99
--- NOTE | 2025-02-13 13:44 | ED.LOWEXIN ---
HPI - Extremity Injury (Lower) General Chief Complaint: Extremity Injury, Lower Stated Complaint: LT Foot Injury Time Seen by Provider: 02/13/25 14:30 Source: patient and RN notes reviewed Mode of arrival: ambulatory Limitations: no limitations History of Present Illness HPI Narrative: 6-year-old female presents with concern for left foot injury. Reports she slipped down the stairs today and rolled her left ankle. Reports left lateral foot pain. She reports it pain with weight-bearing. She denies decreased strength, sensation, range of motion. MD complaint: foot injury Related Data Home Medications ?Medication ?Instructions ?Recorded ?Confirmed ?Last Taken ?Type amlodipine 5 mg-benazepril 40 mg 5 - 40 cap PO DAILY 08/08/21 02/03/25 01/20/24 History capsule ergocalciferol (vitamin D2) 1,250 1,250 unit PO WEEKLY 08/08/21 02/03/25 01/16/24 History mcg (50,000 unit) capsule glimepiride 2 mg tablet 2 mg PO BID 08/08/21 02/03/25 01/20/24 History levothyroxine 25 mcg capsule 25 mcg PO DAILY 03/18/24 12/23/24 Unknown History simvastatin 40 mg tablet 40 mg PO DAILY 07/16/24 02/03/25 Unknown History tofacitinib 10 mg tablet (Xeljanz) 10 mg PO ONCE 12/23/24 02/03/25 Unknown History metformin 500 mg tablet 500 mg PO BID 02/03/25 02/03/25 Unknown History Allergies Allergy/AdvReac Type Severity Reaction Status Date / Time No Known Allergies Allergy Mild Verified 02/03/25 07:36 Review of Systems Review of Systems: CONSTITUTIONAL: Denies malaise, chills, sweats, or fever. SKIN: Denies rash or itching, open skin, laceration, abrasion, redness, warmth, swelling. MUSCULOSKELETAL: Reports left for pain and swelling NEUROLOGIC: Denies numbness, weakness All systems reviewed & are unremarkable except as noted in HPI and below PMFSH Past Medical History Medical History Fatty liver Colon cancer screening Hyperplastic polyp of stomach Hiatal hernia Abnormal abdominal exam History of fracture of clavicle (~12/24/22) Left Iron deficiency anemia Diabetes Hypothyroidism Rheumatoid arthritis Osteoarthritis Chronic GERD Hyperlipidemia HTN (hypertension) Obesity Surgical History Surgical History S/P laparoscopic hernia repair 08/25/24 Laparoscopic Alin fundoplication with hiatal hernia repair Dr. Rojas H/O: hysterectomy History of hip replacement left hip 08/2024 History of left knee replacement Family History Family History Mother Diabetes mellitus Cerebrovascular accident Daughter Brain cancer Grandparent Breast cancer Social History Social History Smoking status: Never smoker Alcohol intake: never Substance use: never Substance use type: does not use Do You Feel Safe in your Home?: Yes Lack of Food: Never True Current Housing: I Have Housing Concerned About Future Housing: No Difficulty Paying Gas/Electric Bills: No Difficulty Paying for Meds: No Currently Unemployed: No Education: Decline to Answer Difficulty w/ Childcare or Family Care: No Living arrangements: with family Occupation/Education: retired Spiritual care concerns: No Comments At time of signature, agree with nursing past medical, surgical, social and family history. There is no relevant family history pertinent to the presenting complaint Exam Narrative: GENERAL: Well-appearing, well-nourished, and in no acute distress. HEAD: Normocephalic, atraumatic. EYES: PERRLA, conjunctivae clear NECK: Supple. CHEST: Speaks in full sentences. No respiratory distress. HEART: Regular rate and rhythm. Normal and equal peripheral pulses. EXTREMITIES: Left foot, ankle, digits have grossly normal strength and sensation, grossly normal range of motion. Mild lateral foot and ankle edema without ecchymosis. Normal sensation with sensitivity to light touch and pain. Lateral foot tenderness. No open wounds, no skin tenting, no devitalized tissue or atrophy, no trophic changes, no obvious deformity, alignment normal, nearby joints and structures intact. Distal pulses palpable and equal bilaterally, skin warm, dry, pink. Capillary refill less than 3 seconds. SKIN: Warm, dry, no rash. NEURO: Alert and oriented x3. PSYCH: Normal mood and affect Course Course Emergency Course: Patient is aware of diagnosis, understands and agrees to treatment plan. Anticipatory guidance given. Patient agrees to follow-up as directed and is aware of reasons to seek care at the emergency department. Portions of this record may have been created with voice recognition software Level of Care: Express Care Visit Vital Signs Vital signs: Vital Signs Temperature 97.9 F 02/13/25 13:35 Pulse Rate 80 02/13/25 13:35 Respiratory Rate 18 02/13/25 13:35 Blood Pressure 156/71 H 02/13/25 13:35 Pulse Oximetry 99 02/13/25 13:35 Oxygen Delivery Room Air 02/13/25 13:35 Temperature 97.9 F 02/13/25 13:35 Pulse Rate 80 02/13/25 13:35 Respiratory Rate 18 02/13/25 13:35 Blood Pressure 156/71 H 02/13/25 13:35 Pulse Oximetry 99 02/13/25 13:35 Oxygen Delivery Room Air 02/13/25 13:35 Reviewed. MDM - Extremity Injury (Lower) MDM Narrative Medical decision making narrative: Patients injury and pain is consistent with musculoskeletal etiology. No signs of neurological or vascular compromise on exam. Compartments and tissues are soft without signs of compartment syndrome. Pain is felt appropriate for further evaluation on an outpatient basis. Critical Care Time Critical Care Time Critical Care Time: No Discharge Plan Discharge Clinical Impression: Metatarsal fracture Patient Disposition: Home, Self-Care Condition: Stable Instructions: Foot Fracture in Adults (ED) Additional Instructions: Please rest, ice and elevate the affected extremity. Please take Motrin 600mg every 8 hours, as needed, for pain (take with food). Follow up with Orthopedic Surgery in 1-2 days for further evaluation - please call for an appointment. Keep cast clean, dry and on. Please use garbage bag while showering to keep cast dry. Use sling/crutches. Please go to ER immediately for increased pain, tingling/numbness, swelling, redness, and fever Patient Language: [place] Prescriptions: No Action Xeljanz 10 mg tablet 10 mg PO ONCE pantoprazole 20 mg tablet,delayed release (DR/EC) 20 mg PO QAM Qty: 30 11RF levothyroxine 25 mcg capsule 25 mcg PO DAILY glimepiride 2 mg tablet 2 mg PO BID ergocalciferol (vitamin D2) 1,250 mcg (50,000 unit) capsule 1,250 unit PO WEEKLY Patient Comments: TAKES ON FRIDAY Rx Instructions: Friday amlodipine-benazepril 5-40 mg capsule 5 - 40 cap PO DAILY metformin 500 mg tablet 500 mg PO BID simvastatin 40 mg tablet 40 mg PO DAILY Follow-up/Referrals: Nicolás Jaquez MD [Physician] - Chung,Ivan Monroy MD [Primary Care Provider] - Time of Disposition: 14:40
== END 2025-02-13 15:00 | disposition home or self-care (01) ==
PROVIDERS: Emergency Provider Nurse Practitioner; PCP Internal Medicine
DX: S92.302A Fracture of unspecified metatarsal bone(s), left foot, initial encounter for closed fracture (principal); W10.9XXA Fall (on) (from) unspecified stairs and steps, initial encounter; I10 Essential (primary) hypertension; E11.9 Type 2 diabetes mellitus without complications; Z79.84 Long term (current) use of oral hypoglycemic drugs; E78.5 Hyperlipidemia, unspecified; M06.9 Rheumatoid arthritis, unspecified; M19.90 Unspecified osteoarthritis, unspecified site; K76.0 Fatty (change of) liver, not elsewhere classified; E03.9 Hypothyroidism, unspecified; K21.9 Gastro-esophageal reflux disease without esophagitis; Z96.642 Presence of left artificial hip joint; Z96.652 Presence of left artificial knee joint
CPT/HCPCS: 73630; 99214; G0463

== ENCOUNTER 2025-08-03 08:30 | Emergency (ER) | payer MEDICARE, SELFPAY ==
--- NOTE | ~2025-08-03 | XR_ITS ---
XR lumbar spine min 4V Indication: pain, atraumatic Comparison: None Findings: Remote compression fracture of T12, no acute fracture or subluxation. Moderate loss of disc height T11-12 and T12-L1. Soft tissues unremarkable Impression: No acute abnormality. Reviewed, dictated and finalized at location A. Impression: No acute abnormality.
[2025-08-03 08:39] VITALS: BP 150/74; PULSE 90; RESP 16; TEMP 36.3; O2SAT 97
--- OUTSIDE RECORDS SUMMARY | 2025-08-03 08:56 | XMS_ITS | Clinical Summary ---
Author Organization [facility] Address [address] [place] [address] Phone Care Team Providers Care Tibco Developer Name Role Phone Ivan Wilkes MD Primary Care Provider [phone] Medications Abatacept (Orencia ClickJect) 125 MG/ML Solution Auto-injector Orencia ClickJect 125 mg/mL subcutaneous auto-injector Active Orencia ClickJect 125 MG/ML Solution Auto-injector 2 Active alendronate (FOSAMAX) 70 MG Tablet TAKE 1 TABLET BY MOUTH ONE TIME PER WEEK 2 Active amLODIPine Besy-Benazepril HCl 5-40 MG Capsule amlodipine 5 mg-benazepril 40 mg capsule Active ergocalciferol (VITAMIN D) 24405 UNIT Capsule TAKE 1 CAPSULE BY MOUTH [...] 10:38 AM CDT Height 154.9 cm (5' 1) 08/25/2022 10:38 AM CDT Body Mass Index 31.18 08/25/2022 10:38 AM CDT Plan of Treatment Health Maintenance Due Date Last Done Comments Diabetes: Eye Exam 1954 Diabetes: Foot Exam 1954 Hepatitis C Virus (HCV) Screening 1954 Cologuard 1999 Colonoscopy 1999 Colorectal Cancer Screening 1999 Immunochemical Fecal Occult Blood 1999 Zoster Immunization (1 of 2) 2004 Diabetes: Hemoglobin A1c 02/23/2023 08/25/2022 Diabetes: Nephropathy Screening 08/25/2023 08/25/2022, 08/25/2022 Influenza Immunization (#1) 07/25/202508/24, 08/21/2021, 08/14/2019 SARS-COV-2 Immunization ( season) 2025 04/19/2022, 11/07/2021, 01/26/2021, Additional history exists Respiratory Syncytial Virus (RSV) Immunization (Adult) (1 - 1-dose 75+ series) 2029 DTaP/Tdap/Td Immunization Discontinued 12/14/2013 TdaP Immunization Completed 12/14/2013 Pneumococcal Immunization (50+ years) Completed 09/07/2021, 09/24/2019 Hepatitis B Immunization Aged Out No longer eligible based on patient's age to complete this topic Human Papillomavirus (HPV) Immunization Aged Out No longer eligible based on patient's age to complete this topic Meningococcal Immunization (ACWY) Aged Out No longer eligible based on patient's age to complete this topic Rotavirus Immunization Aged Out No lo nger eligible based on patient's age to complete this topic Medical Devices Implanted Type Area Slasher Runner Device Identifier Shelf Expiration Date Model / Serial / Lot Screw Bone 5mm 40mm Ti Fthrd Lock Strl T2 Nail Sys Unv Sys - [id number] Implanted:Qty: 1 on 08/25/2022 by Stiven Huff MD at [facility] IMPLANT Left: Hip [employer] 01/21/2027 [id number] / [id number] / [id number] Screw Bone 10.5mm 85mm Gamma3 Ti Hip Trochanter Lag Strl - [id number] Implanted:Qty: 1 on 08/25/2022 by Stiven Huff MD at [facility] IMPLANT Left: Hip [employer] 11/23/2026 [id number] / [id number] / [id number] Nail 10mm 170mm Hip Trochanter Gamma3 Im 125d Ti Strl - [id number] Implanted:Qty: 1 on 08/25/2022 by Stiven Huff MD at [facility] IMPLANT Left: Hip [place] [employer] 05/23/2026 [id number] / [id number] / [id number] Procedures Procedure Name Priority Date/Time Associated Diagnosis [...] - 9.0 POORLY-CONTROLLED: >9.0 us Kari Luu MANAGER PRODUCT DESIGN, ASSISTANT BRANCH OPERATIONS MANAGER CHEMISTRY ORDERABLES Fi nal Result [facility] [place] [address] * (ABNORMAL) CMP (Comprehensive Metabolic Panel) (08/25/2022 11:00 AM CDT) SODIUM 133(L) 136 - 144 mmol/L 08/25/2022 11:27 AM CDT [facility] POTASSIUM 3.9 3.5 - 5.1 mmol/L 08/25/2022 11:27 AM [facility] CHLORIDE 96(L) 100 - 110 mmol/L 08/25/2022 11:27 AM [facility] CO2, VENOUS 25 22 - 32 mmol/L 08/25/2022 11:27 AM [facility] ANION GAP 15.9 8.0 - 20.0 mmol/L 08/25/2022 11:27 AM [facility] GLUCOSE 221(H) 70 - 99 mg/dL 08/25/2022 11:27 AM [facility] BUN 7(L) 8 - 23 mg/dL 08/25/2022 11:27 AM [facility] CREATININE, BLOOD 0.42(L) 0.60 - 1.10 mg/dL 08/25/2022 11:27 AM [facility] BUN/CREATININE RATIO 17 12 - 20 ratio 08/25/2022 11:27 AM [facility] TOTAL PROTEIN 6.8 6.0 - 8.3 g/dL 08/25/2022 11:27 AM [facility] ALBUMIN 4.0 3.5 - 5.2 g/dL 08/25/2022 11:27 AM [facility] Comment: The colormetric methods used for the determination of Albumin may lead to falsely elevated test results in patients suffering from renal failure or insufficiency due to interference with other proteins. A/G RATIO 1.4 1.0 - 2.0 08/25/2022 11:27 AM [facility] CALCIUM 9.6 8.9 - 10.3 mg/dL 08/25/2022 11:27 AM [facility] T BILI 0.7 <=1.2 mg/dL 08/25/2022 11:27 AM [facility] SGOT (AST) 37(H) <=32 U/L 08/25/2022 11:27 AM [facility] SGPT (ALT) 53(H) <=41 U/L 08/25/2022 11:27 AM CDT [facility] ALKALINE PHOSPHATASE 80 35 - 105 U/L 08/25/2022 11:27 AM CDT [facility] GFR, ESTIMATED >60 >=60 08/25/2022 11:27 AM CDT [facility] Comment: Creatinine Clearance is the preferred criteria for selecting drug dose adjustments in renally impaired patients. The GFR is provided as additional pertinent clinical information. GFR is reported in mL/min/1.73 sq m. Calculation based on the Chronic Kidney Disease Epidemiology Collaboration (CKD- EPI) equation refit without adjustment for race. GFR, EST. >60 >=60 022 11:27 AM CDT [facility] GFR, EST. NONAFRICAN >60 >=60 08/25/2022 11:27 AM CDT [facility] Blood Venipuncture / Unknown 08/25/2022 11:00 AM CDT 08/25/2022 11:07 AM CDT us Stiven Huff MD CHEMISTRY ORDERABLES Final Resul t [facility] [address] [place] [address] from Last 3 Months or Most Recently Relevant to Health Maintenance Insurance MEDICARE C [employer] Advance Directives * Full Code (Latest Code Status on File) Date Activated Date Inactivated Comments 08/25/2022 11:11 AM 08/29/2022 3:46 PM CPR-Full Tr eatment: FULL ARREST: Attempt Resuscitation/CPR wit intubation and mechanical ventilation. PRE-ARREST: Use entire range of life support measures to stabilize the patient. Care Teams Tibco Developer Relationship Specialty Start Date End Date Ivan Wilkes MD [address] [facility] [address] [place] [address] PCP - General Internal Medicine 08/25/22
--- OUTSIDE RECORDS SUMMARY | 2025-08-03 08:56 | XMS_ITS | Clinical Summary ---
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 Gender Identity Not on file Sexual Orientation [...] 10:24 AM CDT Height 154.9 cm (5' 1) 02/26/2024 10:24 AM CDT Body Mass Index [...] 2024 09/18/2023, 09/06/2022, 04/19/2022, Additional history exists Osteoporosis Screening-Bone Density Scan 02/24/2025 02/24/2023 Influenza Vaccine (#1) 2025 , 08/21/2021, 08/14/2019 Pneumococcal vaccine 65+ Completed 09/07/2021, 11/2018 Insurance [facility] MEDICARE [employer] MEDICARE Care Teams Electrical Transmission Engineer Relationship Specialty Start Date End Date Ivan Wilkes MD [address] [place] [address] (work) PCP - General Internal Medicine 02/25/24
--- NOTE | 2025-08-03 09:02 | ED.GENADULT ---
HPI - General Adult General Chief complaint: Back Pain/Injury Stated complaint: Back Pain Source: patient Mode of arrival: ambulatory Limitations: no limitations History of Present Illness HPI narrative: patient is a 69-year-old female presenting with complaint of atraumatic lower back pain. She reports pain radiates into Her right buttock. Pain began on Friday. She denies any eliciting factors. No paresthesias to extremities. No bowel/bladder incontinence. No urinary retention. Tx initiated NEUROPATHOLOGIST includes ibuprofen, aleve. No additional complaints. Related Data Home Medications ?Medication ?Instructions ?Recorded ?Confirmed ?Last Taken ?Type amlodipine 5 mg-benazepril 40 mg 5 - 40 cap PO DAILY 08/08/21 07/13/25 07/13/25 History capsule ergocalciferol (vitamin D2) 1,250 1,250 unit PO WEEKLY 08/08/21 07/13/25 07/08/25 History mcg (50,000 unit) capsule glimepiride 2 mg tablet 2 mg PO BID 08/08/21 07/13/25 07/13/25 History levothyroxine 25 mcg capsule 25 mcg PO DAILY 03/18/24 07/13/25 07/13/25 History simvastatin 40 mg tablet 40 mg PO DAILY 07/16/24 07/13/25 07/13/25 History tofacitinib 10 mg tablet (Xeljanz) 10 mg PO DAILY 12/23/24 07/13/25 07/13/25 History metformin 500 mg tablet 500 mg PO BID 02/03/25 07/13/25 07/13/25 History alendronate 70 mg tablet 70 mg PO WEEKLY 07/13/25 07/13/25 07/08/25 History Allergies Allergy/AdvReac Type Severity Reaction Status Date / Time No Known Allergies Allergy Mild Verified 08/03/25 08:31 Review of Systems Review of Systems: CONSTITUTIONAL: Denies body aches, fever, chills, or sweats. EYES: Denies visual changes, redness, or discharge. ENT: Denies rhinorrhea, congestion, sore throat, or otalgia. CARDIOVASCULAR: Denies chest pain, palpitations, or edema. RESPIRATORY: Denies cough or dyspnea. GASTROINTESTINAL: Denies abdominal pain, nausea, vomiting, or diarrhea. GENITOURINARY: Denies dysuria or hematuria. SKIN: Denies rash, itching, or wounds. MUSCULOSKELETAL: Reports lower back pain NEUROLOGIC: Denies headache, numbness, tingling, or weakness. PSYCH: Denies depression or anxiety. All systems reviewed & are unremarkable except as noted in HPI and below PMFSH Past Medical History Medical History Fatty liver Colon cancer screening Hyperplastic polyp of stomach Hiatal hernia Abnormal abdominal exam History of fracture of clavicle (~12/24/22) Left Iron deficiency anemia Diabetes Hypothyroidism Rheumatoid arthritis Osteoarthritis Chronic GERD Hyperlipidemia HTN (hypertension) Obesity Surgical History Surgical History S/P laparoscopic hernia repair 08/25/24 Laparoscopic Alin fundoplication with hiatal hernia repair Dr. Rojas H/O: hysterectomy History of hip replacement left hip 08/2024 History of left knee replacement Family History Family History Mother Diabetes mellitus Cerebrovascular accident Daughter Brain cancer Grandparent Breast cancer Social History Social History Smoking status: Never smoker Alcohol intake: never Substance use: never Substance use type: does not use Do You Feel Safe in your Home?: Yes Lack of Transportation: No Lack of Food: Never True Current Housing: I Have Housing Concerned About Future Housing: No Difficulty Paying Gas/Electric Bills: No Difficulty Paying for Meds: No Currently Unemployed: No Education: High School Diploma/GED Difficulty w/ Childcare or Family Care: No Living arrangements: with family Occupation/Education: retired Spiritual care concerns: No Exam Narrative: GENERAL: Well-appearing, well-nourished, and in no acute distress. HEAD: Normocephalic, atraumatic. EYES: EOMI. No redness or drainage. Conjunctivae normal. NECK: Normal AROM. Supple. CHEST: No respiratory distress. Clear to auscultation. HEART: Regular rate and rhythm. No murmur appreciated. Normal peripheral pulses. ABDOMEN: Soft, nontender, nondistended, normal active bowel sounds. EXTREMITIES: Normal range of motion. NO evidence of saddle anesthesia SKIN: Warm, dry, no rash. Capillary refill normal. Normal skin turgor. NEURO: No focal deficits. Alert and oriented x3. Gait steady. PSYCH: Normal affect. No signs of depression or anxiety. Back/Spine/Pelvis: Back: no CVA tenderness Cervical Spine: cervical ROM normal Thoracic/Lumbar Spine: thoracic and lumbar spine normal to inspection, thoraco-lumbar ROM normal, lumbar spinal tenderness and straight leg raise positive right at 30 degrees Course Course Level of Care: Express Care Visit Vital Signs Vital signs: Vital Signs Temperature 97.3 F L 08/03/25 08:39 Pulse Rate 90 08/03/25 08:39 Respiratory Rate 16 08/03/25 08:39 Blood Pressure 150/74 H 08/03/25 08:39 Pulse Oximetry 97 08/03/25 08:39 Oxygen Delivery Room Air 08/03/25 08:39 Temperature 97.3 F L 08/03/25 08:39 Pulse Rate 90 08/03/25 08:39 Respiratory Rate 16 08/03/25 08:39 Blood Pressure 150/74 H 08/03/25 08:39 Pulse Oximetry 97 08/03/25 08:39 Oxygen Delivery Room Air 08/03/25 08:39 Medical Decision Making MDM Narrative Medical decision making narrative: Discussed elevated blood pressure readings with patient and advised daily BP monitoring and f/u with PCP if persisting. Vital Signs Vital Signs: Vital Signs Temperature 97.3 F L 08/03/25 08:39 Pulse Rate 90 08/03/25 08:39 Respiratory Rate 16 08/03/25 08:39 Blood Pressure 150/74 H 08/03/25 08:39 Pulse Oximetry 97 08/03/25 08:39 Oxygen Delivery Room Air 08/03/25 08:39 Temperature 97.3 F L 08/03/25 08:39 Pulse Rate 90 08/03/25 08:39 Respiratory Rate 16 08/03/25 08:39 Blood Pressure 150/74 H 08/03/25 08:39 Pulse Oximetry 97 08/03/25 08:39 Oxygen Delivery Room Air 08/03/25 08:39 Discharge Plan Discharge Clinical Impression: Compression fracture of body of thoracic vertebra Strain of lumbar region Qualifiers: Encounter type: initial encounter Qualified Code(s): S39.012A - Strain of muscle, fascia and tendon of lower back, initial encounter Sciatica Qualifiers: Laterality: right Qualified Code(s): M54.31 - Sciatica, right side HTN (hypertension) Qualifiers: Hypertension type: primary hypertension Qualified Code(s): I10 - Essential (primary) hypertension Patient Disposition: Home Condition: Stable Instructions: Sciatica (ED), Lower Back Exercises (ED) Additional Instructions: Go straight to ER should your symptoms become worse or should any new symptoms develop Patient Language: Mohawk Prescriptions: New cyclobenzaprine 7.5 mg tablet 7.5 mg PO TID PRN (Reason: muscle spasm) Qty: 15 0RF No Action Xeljanz 10 mg tablet 10 mg PO DAILY pantoprazole 20 mg tablet,delayed release (DR/EC) 20 mg PO QAM Qty: 30 11RF levothyroxine 25 mcg capsule 25 mcg PO DAILY glimepiride 2 mg tablet 2 mg PO BID ergocalciferol (vitamin D2) 1,250 mcg (50,000 unit) capsule 1,250 unit PO WEEKLY Patient Comments: TAKES ON FRIDAY Rx Instructions: Friday amlodipine-benazepril 5-40 mg capsule 5 - 40 cap PO DAILY metformin 500 mg tablet 500 mg PO BID simvastatin 40 mg tablet 40 mg PO DAILY alendronate 70 mg tablet 70 mg PO WEEKLY Patient Comments: PATIENT TAKES ON FRIDAYS Follow-up/Referrals: Chung,Ivan Monroy MD [Primary Care Provider] - 08/04/25 Time of Disposition: 09:20
== END 2025-08-03 09:23 | disposition home or self-care (01) ==
PROVIDERS: Emergency Provider Registered Nurse; PCP Internal Medicine
DX: M48.54XA Collapsed vertebra, not elsewhere classified, thoracic region, initial encounter for fracture (principal); S39.012A Strain of muscle, fascia and tendon of lower back, initial encounter; X58.XXXA Exposure to other specified factors, initial encounter; M54.31 Sciatica, right side; I10 Essential (primary) hypertension; E11.9 Type 2 diabetes mellitus without complications; Z79.84 Long term (current) use of oral hypoglycemic drugs; E03.9 Hypothyroidism, unspecified; M06.9 Rheumatoid arthritis, unspecified; M19.90 Unspecified osteoarthritis, unspecified site; E78.5 Hyperlipidemia, unspecified; K76.0 Fatty (change of) liver, not elsewhere classified; E66.9 Obesity, unspecified; Z68.32 Body mass index [BMI] 32.0-32.9, adult
CPT/HCPCS: 72110; 99213; G0463